=== PATIENT | female | born 1945 | race Caucasian/White ===

== ENCOUNTER 2020-02-14 17:14 | Emergency (ER) | payer MEDICARE, MEDICAID, SELFPAY ==
[2020-02-14] VITALS (11 sets, daily range): BP systolic 101–128; BP diastolic 75–103; PULSE 97–121; RESP 15–20; TEMP 36.6; O2SAT 92–100; BMI 32.9
--- NOTE | 2020-02-14 17:17 | XR_ITS ---
WS: [id number] LEFT WRIST: 3 VIEW(S) TECHNIQUE: PA, oblique and lateral. HISTORY: fall COMPARISON: None available. Comminuted radial fracture with intra-articular extension. Comminuted fractures with overlapping and dorsal angulation by nearly 50% the width of the radius. Additional avulsion fracture through the ulnar styloid. Bones are osteopenic. XR/XR wrist LT min 3V* [id number] IMPRESSION: 1. Fracture dislocation intra-articular fracture distal radius. 2. Nondisplaced ulnar styloid avulsion fracture. 3. Osteopenia.
--- NOTE | 2020-02-14 17:17 | XR_ITS ---
WS: [id number] PORTABLE CHEST HISTORY: fall COMPARISON: 08/07/2018 Lungs are clear and well expanded. No pleural effusion or pneumothorax. Cardiac size: Normal. Mediastinum/Aorta: Ectatic aorta. No osseous abnormality seen. XR/XR chest 1V portable [id number] IMPRESSION: Unremarkable portable chest.
--- NOTE | 2020-02-14 17:18 | ED_ITS ---
HPI - Fall General: Chief Complaint: Fall Stated Complaint: FALL LEFT WRIST INJURY Time Seen by Provider: 02/14/20 17:17 Source: patient and EMS Mode of arrival: EMS Limitations: no limitations History of Present Illness: HPI Narrative: 74-year-old female who states she tripped and fell. She struck her head along with her left arm. She has obvious deformity to her left wrist with pain in that wrist. She denies any loss conscious denies headache. She states she had a mild chest pain to after the fall. She denies any chest pain or headache before the fall. States the pain was sharp in nature. MD complaint: fall Onset (ago): hour(s) Fall from: standing Loss of consciousness: None Symptoms prior to fall: none Location of injury - extremities: Left: arm Severity: moderate Associated symptoms-after fall: Denies abdominal pain, chest pain or headache(s) Review of Systems Const: Denies: fever, chills, body aches or change in appetite Eyes: Denies: blurry vision or eye discomfort ENMT: Denies: throat pain or dental pain Card: Denies: chest pain Resp: Denies: shortness of breath GI: Denies: abdominal pain, nausea, vomiting or diarrhea : Denies: painful urination Musc: Reports: joint pain Skin/Breast: Denies: rash Neuro: Denies: headache Psych: Denies: depression Shabbir/Lymph: Denies: easy bruising All/Imm: Denies: hives PFSH ED PFSH: Social History Smoking and tobacco status: never smoked Physical Exam Const: COMMON NORMALS: no apparent distress, oriented x3 and healthy appearing HENMT: COMMON NORMALS: normocephalic HEAD & SCALP: normocephalic OTHER: abrasion to forehead Eye: COMMON NORMALS: PERRL and EOMs intact bilaterally PUPIL: Yes PERRL Neck/C-Spine: COMMON NORMALS: full ROM and supple Chest: COMMONS NORMALS: inspection of chest normal and palpation of chest normal Resp: COMMON NORMALS: normal respiratory effort, no retractions, no use of accessory muscles and clear to auscultation bilaterally AUSCULTATION: clear to auscultation bilaterally Cardio: COMMON NORMALS: regular rate, regular rhythm and no murmurs RATE: regular rate RHYTHM: regular rhythm GI: COMMON NORMALS: normal to inspection, nondistended, normoactive bowel sounds, soft to palpation, non-tender and no masses PALPATION: Yes soft Extremity: COMMON NORMALS: full ROM NARRATIVE EXTREMITY EXAM: obvious deformity to left wrist, n/v distally intact Neuro: COMMON NORMALS: oriented x3, moves all extremities and no focal motor deficits Psych: COMMON NORMALS: mental status grossly normal, thought process normal and cooperative THOUGHT PROCESS: normal thought process Skin: COMMON NORMALS: no rashes or lesions noted and no wounds GENERAL SKIN EXAM: no rashes or lesions noted Procedures Orthopedic Fracture Reduction Fracture #1: Time Out Performed: Yes Side: right Fracture Reduction Location: radius Analgesia: procedural sedation Technique: direct manipulation Post Reduction X-rays Demonstrate: anatomical reduction Post-reduction neuro exam: intact Post-reduction vascular exam: intact Splint Applied: Yes Patient Tolerated Procedure: well Procedural Sedation Indication: fracture/dislocation reduction ASA Class: II Time of Last PO Intake: 14:00 Preparation: youth nutritional monitor applied, pulse oximeter, supplemental O2 applied and suction/airway equipment at bedside IV Propofol dose (mg): 60 Patient Tolerated Procedure: well Complications: none Course Vital Signs: Vital signs: Vital Signs Temperature 97.8 F 02/14/20 17:15 Pulse Rate 105 H 02/14/20 19:01 Respiratory Rate 17 02/14/20 19:01 Blood Pressure 109/75 02/14/20 18:55 Pulse Oximetry 97 02/14/20 19:01 MDM - Fall MDM Narrative: Medical decision making narrative: Patient presents here with a an angulated left distal radius fracture after a fall. Fracture was reduced under conscious sedation. Patient has no other signs of injuries. CT head here is normal. Patient's EKG and x-ray chest are normal and chest pain is likely from the fall. Patient stable for discharge and is to follow-up with orthopedics as soon as possible. Imaging Data^: CT Head: Radiologist's impression: [address] [address] [address] Scan Report Signed Patient: Tamika France Unit #: [id number] : [id number] Age/Sex: 74 / F ADM Date: 02/14/20 Loc: ER Room/Bed: Attending Dr: Ordering Provider/Ordering MD: Isela Hinds MD Date of Service: 02/14/20 Procedure(s): CT head wo con* [id number] Accession Number(s): [id number] Report Number: [id number] PROCEDURE INFORMATION: Exam: CT Head Without Contrast Exam date and time: 02/14/2020 5:18 PM Age: 74 years old Clinical indication: Injury or trauma; Fall TECHNIQUE: Imaging protocol: Computed tomography of the head without contrast. Radiation optimization: All CT scans at this facility use at least one of these dose optimization techniques: automated exposure control; mA and/or kV adjustment per patient size (includes targeted exams where dose is matched to clinical indication); or iterative reconstruction. COMPARISON: CT head wo con* [id number] 08/07/2018 4:48 PM RADIATION DOSE METRICS: Total DLP: 817.68 mGy-cm FINDINGS: Brain: No visible evidence of active or acute intracranial pathologic process or trauma. No visible intracranial hemorrhage. Advanced small vessel ischemic disease with senile periventricular leukomalacia. Cerebral and cerebellar atrophy with ventricular dilatation greater than that anticipated patient's chronological age. Bones/joints: Unremarkable. No acute fracture. Sinuses: Visualized sinuses are unremarkable. No fluid levels. Mastoid air cells: Visualized mastoid air cells are well aerated. Soft tissues: Unremarkable. CT/CT head wo con* [id number] IMPRESSION: 1. No visible evidence of active or acute intracranial pathologic process or trauma. 2. Advanced small vessel ischemic disease. 3. Atrophic changes. CXR: My impression: no acute abnormality xr L wrist : My impression: distal angulated fx EKG Data^: EKG 1: Attestation: I personally reviewed and interpreted this EKG as follows: EKG interpretation date: 02/14/20 EKG interpretation time: 17:22 Interpretation: afib rvr gr [address] or t wave abnormality Discharge Plan Discharge Patient Disposition: Home, Self-Care Clinical Impression: Fall Fracture of wrist Qualifiers: Encounter type: initial encounter Fracture type: closed Laterality: left Qualified Code(s): S62.102A - Fracture of unspecified carpal bone, left wrist, initial encounter for closed fracture Condition: Stable Prescriptions: [place] 5-325 mg tablet 1 tab PO Q6H PRN (Reason: pain) Qty: 14 RF: 0 No Action furosemide 40 mg tablet 40 mg PO DAILY RF: 0 venlafaxine 150 mg capsule,extended release 24hr 150 mg PO DAILY RF: 0 amlodipine 5 mg tablet 5 mg PO DAILY RF: 0 risperidone 3 mg tablet 3 mg PO DAILY RF: 0 potassium chloride 20 mEq tablet,ER particles/crystals 20 meq PO DAILY RF: 0 levofloxacin 500 mg tablet 500 mg PO DAILY RF: 0 topiramate 100 mg tablet 100 mg PO DAILY RF: 0 Excedrin Extra Strength 250-250-65 mg Tablet 1 tab PO Q6H PRN (Reason: Pain) RF: 0 metoprolol tartrate 25 mg tablet 25 mg PO DAILY RF: 0 Xarelto 20 mg tablet 20 mg PO DAILY RF: 0 Discharge Orders: Discharge Order (Routine); Ordered 02/14/20 Ordered By: Isela Hinds Referrals: Ml Zaldivar MD [Physician] - 1-3 days Discharge Diet: Advance as tolerated Discharge Activity: Resume usual activity Patient Instructions: Wrist Fracture in Children (ED) Coding Level of Care Code ED Assistant Manager [employer] for Ambrosio Fwmagda Exam Comprehensive
[2020-02-14] MEDS: morphine 4 mg/mL SDV 1 mL IVP (17:34)
--- NOTE | 2020-02-14 17:46 | ECG_ITS ---
Measurements Intervals [place] Rate: 110 P: CA: 0 QRS: -17 QRSD: 95 T: -9 QT: 347 QTc: 470 ATRIAL FIBRILLATION WITH RAPID VENTRICULAR RESPONSE INCOMPLETE RIGHT BUNDLE BRANCH BLOCK [90+ ms QRS DURATION, TERMINAL R IN V1/V2, 40+ ms S IN I/aVL/V4/V5/V6] NONSPECIFIC ST & T-WAVE ABNORMALITY ABNORMAL RHYTHM ECG Compared to ECG 08/07/2018 16:31:02 Incomplete right bundle-branch block now present T-wave abnormality now present Sinus rhythm no longer present Electronically Signed On 02-14-2020 18:11:54 CDT by Rl Madsen M.D. [email or web address]
[2020-02-14] MEDS: sodium chloride 0.9% 1,000 ML 999 ML IV (18:36)
[2020-02-14] MEDS: propofol 10 mg/mL SDV 20 mL IVP (18:36)
[2020-02-14] MEDS: propofol 10 mg/mL SDV 20 mL 50 MG IVP (18:36)
--- NOTE | 2020-02-14 18:42 | XR_ITS ---
WS: [id number] LEFT WRIST: 2 VIEW(S) TECHNIQUE: PA and lateral. HISTORY: post reduction COMPARISON: Study earlier the same day. Reduction of the previously described fracture dislocation involving the radius. Comminuted radial fr acture still present with impaction and slight dorsal angulation. Significant improvement in alignmen t. Avulsion fracture through the distal ulna. Radial fracture does extend to the articular surface. Splint has been placed. XR/XR wrist LT 2V [id number] IMPRESSION: 1. Status post reduction and casting distal radial and ulnar fractures which a re in improved alignment.
--- NOTE | 2020-02-15 12:00 | DCPLANNER ---
resident services manager had message to schedule a follow up appointment for patient with ortho. resident services manager called the ortho clinic, spoke with Rahel. resident services manager gave clinic patients information, was told that it would be printed and reviewed. Clinic will call case supervisor and patient with appointment information.
--- NOTE | 2020-02-16 11:25 | DCPLANNER ---
Patient has a follow up appointment scheduled for Monday, February 24, 2020 at 11:[address] Ortega. Clinic will call patient with appointment information.
--- NOTE | 2020-02-28 14:01 | DCPLANNER ---
Patient did attend appointment scheduled for 02.24.20 with ortho.
== END 2020-02-14 22:51 | disposition home or self-care (01) ==
PROVIDERS: Emergency Provider Emergency Medicine
DX: S52.572A Other intraarticular fracture of lower end of left radius, initial encounter for closed fracture (principal); S52.615A Nondisplaced fracture of left ulna styloid process, initial encounter for closed fracture; W01.0XXA Fall on same level from slipping, tripping and stumbling without subsequent striking against object, initial encounter
CPT/HCPCS: 12345; 25605; 70450; 71045; 73100; 73110; 93005; 96361; 96374; 96375; 99283; 99284; J2270; J2704; J7030

== ENCOUNTER 2020-02-15 11:59 | Emergency (ER) | payer MEDICARE, MEDICAID, SELFPAY ==
[2020-02-15 12:03] VITALS: BP 119/80; PULSE 103; RESP 17; TEMP 36.8; O2SAT 95; BMI 32.9
--- NOTE | 2020-02-15 13:08 | W.ED.AMS ---
HPI - Altered Mental Status General: Chief Complaint: Altered Mental Status Stated Complaint: GENERAL WEAKNESS, FALL YESTERDAY Time Seen by Provider: 02/15/20 12:02 Source: patient and RN notes reviewed Mode of arrival: EMS Limitations: no limitations History of Present Illness: HPI narrative: 74-year-old female patient was brought into the emergency department via EMS with concerns of altered mental status. The patient was seen in this facility yesterday following a fall and she sustained a left wrist fracture which was reduced and put in a splint. The patient lives alone but her family has been taking care of her. The family states that she has been very confused and they can no longer take care of her. They want her placed in a group home. On talking to the patient she complains of only mild weakness and pain at the fracture site. She denies confusion and she is alert and oriented during my entire conversation with her. She recalls her fall yesterday, recalls she broke her wrist, and even recalls me from a prior encounter. I did not see her yesterday. She tells me she lives alone but her family has been helping to take care of her. Review of Systems General: Reports: 10 or more systems reviewed and unremarkable except in HPI and below Const: Denies: fever, chills or body aches Eyes: Denies: change in vision or blurry vision ENMT: Denies: throat pain, enlarged tonsils, painful swallowing, hoarseness, mouth pain or swelling of lips/tongue Card: Denies: chest pain, palpitations, irregular heart rhythm, edema or swelling of feet/ankles Resp: Denies: shortness of breath, productive cough or non-productive cough GI: Denies: abdominal pain, nausea or vomiting : Denies: flank pain, difficulty urinating, painful urination, urinary frequency, urinary urgency or urinary hesitancy Musc: Denies: neck pain, back pain or extremity swelling Skin/Breast: Denies: rash, itching or redness Neuro: Denies: headache, numbness in extremities or weakness in extremities Endo: Denies: excessive urination, excessive thirst or tired all the time PFS ED PFSH: Social History Smoking and tobacco status: never smoked Physical Exam Const: COMMON NORMALS: no apparent distress, average body habitus, oriented x3, no limitations, healthy appearing, alert and well nourished HENMT: COMMON NORMALS: normocephalic, head/scalp atraumatic and moist oral mucous membranes HEAD & SCALP: normocephalic and atraumatic Eye: COMMON NORMALS: PERRL, EOMs intact bilaterally, conjunctivae normal and no scleral icterus CONJUNCTIVA: Yes conjunctivae normal PUPIL: Yes PERRL Neck/C-Spine: COMMON NORMALS: full ROM, supple, no meningeal signs, no JVD and no carotid bruits Chest: COMMONS NORMALS: inspection of chest normal and palpation of chest normal Resp: COMMON NORMALS: normal respiratory effort, no retractions, no use of accessory muscles, clear to auscultation bilaterally and percussion normal AUSCULTATION: clear to auscultation bilaterally PERCUSSION: percussion normal Cardio: COMMON NORMALS: no JVD, regular rate, regular rhythm, S1 normal heart sound, S2 normal heart sound, no gallops, no clicks, no murmurs, no rub and peripheral pulses 2+ throughout RATE: regular rate RHYTHM: regular rhythm HEART SOUNDS: S1 normal and S2 normal PERIPHERAL PULSES: pulses 2+ throughout GI: COMMON NORMALS: normal to inspection, nondistended, normoactive bowel sounds, soft to palpation, non-tender, no hepatosplenomegaly, no masses and no bruits PALPATION: Yes soft and Yes no hepatosplenomegaly : COMMON NORMALS: Yes no CVA tenderness BLADDER/KIDNEY EXAM: Yes no CVA tenderness Back/Pelvis: COMMON NORMALS: no CVA tenderness Extremity: COMMON NORMALS: normal to inspection, full ROM, normal capillary refill, no calf tenderness and no pedal edema OTHER: Left upper extremity in a sling and left forearm in a splint Neuro: COMMON NORMALS: oriented x3 and no focal motor deficits SENSORIUM/ORIENTATION: Yes alert MENINGEAL SIGNS: Yes no meningeal signs Skin: COMMON NORMALS: no rashes or lesions noted, no wounds, skin turgor normal, no jaundice, no petechiae and no mottling GENERAL SKIN EXAM: no rashes or lesions noted and turgor normal Course ED course: 74-year-old female patient lives by herself and who had a fall yesterday with a subsequent left wrist fracture. Her family sent her to the emergency department today because of complaints of confusion and that they were unable to care for her. The patient is not confused in the emergency department, she is alert and oriented, however she is in agreement that because of the fracture and the fact that she lives alone a brief stay at the group home is reasonable. During her stay in the emergency department I was in contact with the orthopedic surgeon who wants to see her in the clinic on February 23 for surgery on February 27. Consultations: Consultation #1: Dr. Ortega, orthopedic surgeon. He will take the patient to the OR on February 27, however will need to see the patient in the clinic on February 23. Vital Signs: Vital signs: Vital Signs Temperature 98.2 F 02/15/20 12:03 Pulse Rate 121 H 02/15/20 15:16 Respiratory Rate 17 02/15/20 12:03 Blood Pressure 118/90 02/15/20 15:16 Pulse Oximetry 90 02/15/20 15:16 MDM - Altered Mental Status MDM Narrative: Medical decision making narrative: 74-year-old female patient status post fall and left wrist fracture. She lives alone and family is unable to care for her so [facility]. While she is in the jail facility she will have an appointment with orthopedic surgery as the surgeon plans to take her to the OR on February 27. She was set up with [facility] and is discharged to that facility from the emergency department. Discharge Plan Discharge Patient Disposition: Xfer [facility] Fac Not MCR Cert Clinical Impression: Fracture of wrist Qualifiers: Encounter type: subsequent encounter Fracture type: closed Laterality: left Fracture healing: with routine healing Qualified Code(s): S62.102D - Fracture of unspecified carpal bone, left wrist, subsequent encounter for fracture with routine healing Condition: Stable Prescriptions: [place] 5-325 mg tablet 1 tab PO Q6H PRN (Reason: pain) Qty: 30 RF: 0 Continued furosemide 40 mg tablet 40 mg PO DAILY RF: 0 venlafaxine 150 mg capsule,extended release 24hr 150 mg PO BID RF: 0 amlodipine 5 mg tablet 5 mg PO DAILY RF: 0 risperidone 3 mg tablet 2 mg PO DAILY RF: 0 potassium chloride 20 mEq tablet,ER particles/crystals 20 meq PO DAILY RF: 0 levofloxacin 500 mg tablet 500 mg PO DAILY RF: 0 topiramate 100 mg tablet 100 mg PO BID RF: 0 metoprolol tartrate 25 mg tablet 25 mg PO BID RF: 0 Xarelto 20 mg tablet 20 mg PO DAILY RF: 0 hydrocodone-acetaminophen [[place]] 5-325 mg tablet 1 tab PO Q6H PRN (Reason: pain) Qty: 14 RF: 0 levofloxacin 250 mg tablet 250 mg PO DAILY RF: 0 dextroamphetamine-amphetamine 30 mg tablet 30 mg PO BID RF: 0 Discharge Orders: Discharge Order (Routine); Ordered 02/15/20 Ordered By: Catia Jaramillo Referrals: Hai Ortega DO [Physician] - 02/24/20 11:00 am (Plans for surgery on 02/28/2020) Patient Instructions: Wrist Fracture in Adults (ED) Activity Restrictions/Additional Instructions: Return for any new or worsening symptoms. You have an appointment scheduled with Dr. Ortega, orthopedic doctor on February 23 at 11 AM. He plans to have surgery on your wrist on February 27. So no food from midnight on the day of February 27. Take the pain medication as needed. Elevate your arm to reduce the swelling. Discharge Date/Time: 02/15/20 16:52 Coding Level of Care Code ED Hepatology Physician for Bharatg Fwd Exam Comprehensive
[2020-02-15] MEDS: HYDROcodone-acetaminophen 5-325 mg Tablet 1 TAB PO (15:15)
[2020-02-15 15:16] VITALS: BP 118/90; PULSE 121; O2SAT 90
--- NOTE | 2020-02-15 16:33 | DCPLANNER ---
Addendum entered by Tammie Freire 02/15/20 16:59: manager call center did give patient the performance data information. Original Note: manager call center was asked to help with placement for patient into a [facility] facility. manager call center spoke with patient and she stated that she did want [facility] facility. manager call center had patient sign Patient Choice letter, in which she choose [facility]. manager call center called the [facility] facility, spoke with Trisha, faxed patients paperwork to the facility. The nursing facility did accept patient, returned case inspector arranged for transportation for patient from the hospital to the [facility] facility.
== END 2020-02-15 16:52 ==
PROVIDERS: Emergency Provider Family Medicine
DX: S62.102A Fracture of unspecified carpal bone, left wrist, initial encounter for closed fracture (principal); X58.XXXA Exposure to other specified factors, initial encounter
CPT/HCPCS: 12345; 99281; 99283

== ENCOUNTER → 2020-02-24 11:49 | Outpatient (BNVA) | payer MEDICARE, MEDICAID, SELFPAY | PROVIDERS: Referring Provider Emergency Medicine; Visit Provider Orthopaedic Surgery | DX: S52.502A Unspecified fracture of the lower end of left radius, initial encounter for closed fracture (principal); S52.612A Displaced fracture of left ulna styloid process, initial encounter for closed fracture; X58.XXXA Exposure to other specified factors, initial encounter | CPT/HCPCS: 73110 ==

== ENCOUNTER 2020-02-28 12:35 | Day surgery (SDC) | payer MEDICARE, MEDICAID, SELFPAY ==
[2020-02-27 12:30] VITALS: BMI 33.1
[2020-02-28] VITALS (8 sets, daily range): BP systolic 104–121; BP diastolic 79–97; PULSE 11–112; RESP 14–18; TEMP 36.4–36.8; O2SAT 95–99
--- NOTE | 2020-02-28 | SCC_ITS ---
Procedure Done: proximal internal fixation left distal radius fracture with volar plate and screws 32.8 seconds of fluoroscopic guidance, for a cumulative dose of 0.98 mGy, was provided to Dr. Ortega by the radiology department. C-arm images of the LEFT wrist were saved for the patient's permanent record. [facility] CENTERJulianne
--- NOTE | 2020-02-28 | XR_ITS ---
WS: [id number] C-ARM RADIOGRAPHS LEFT WRIST; 3 IMAGES HISTORY: OR PICS COMPARISON: 02/24/2020 Intraoperative imaging during plate and screw fixation distal radial fracture. Fracture in good posit ion and alignment. XR/XR wrist LT 2V [id number] IMPRESSION: Status post ORIF distal radial fracture.
--- NOTE | 2020-02-28 13:39 | W.PM.OPSUD ---
Surgery/Procedure H&P Update DATE OF PROCEDURE: February 28, 2020 DATE H&P PERFORMED: 02/24/20 H&P UPDATE INFORMATION: I have reviewed H&P completed within last 30 days, I have examined patient prior to procedure and No changes to prior documentation PREOP DIAGNOSIS: displaced left distal radius fracture PRIMARY INDICATION FOR PROCEDURE: as above PLANNED PROCEDURE: Operation Date: 02/28/20 13:50 Proposed Procedures p Open reduction internal fixation left distal radius (84213) S52.502A(Left) - Hai Ortega DO
--- NOTE | 2020-02-28 13:39 | PM.OP ---
Operative Report Date of procedure: February 28, 2020 Pre-op Diagnosis: displaced left distal radius fracture Post-op diagnosis: same Procedure Done: open reduction and internal fixation two-part extra-articular fracture (Colles' fracture) left distal radius fracture with volar plate and screws Implants: [place] distal radius volar plate and screws Pathology: none sent Surgeon: Hai Ortega Anesthesia: General and Nerve Block (Preoperative left-sided axillary nerve block) Estimated blood loss (mL): 25 Tourniquet time (min): 51 (250 mmHg pressure) IV fluids (mL): 400 Complications: No apparent complications Findings: Satisfactory reduction of fracture and placement of implants is noted by clinical inspection and fluoroscopic imaging performed during surgery. Condition: stable Disposition: PACU Brief History: 74-year-old white female had a fall on her outstretched left upper extremity she was at a [employer] store. She sustained a fracture of her left distal radius. X-rays show an impacted left distal radius fracture it appears to extend in both the radiocarpal and distal radioulnar joints. Her fracture from the time she was splinted in the emergency room 2 time she was seen in orthopedic clinic as shown progressive settling of her impacted distal radius fracture. I recommended surgical intervention to prevent a impending malunion of her wrist. Risk of surgery include are not limited to loss of reduction complications from hardware such as cut out stiffness posttraumatic arthritis possible need to have the plate removed at a later date. Medical complications can include bleeding complications nerve/blood vessel/injury, blood clots, heart attack, stroke risk up to including . All questions answered patient agreeable to proceed with surgery. Procedure: 1.5 g Zinacef Patient identified. Surgical site signed. Surgical permit signed. Patient received 1.5 g of Zinacef for prophylaxis intravenously. The patient was taken to the operating room. She was given intravenous sedation. Tourniquet is placed about the upper aspect of the left upper extremity. Left upper extremity was sterilely prepped draped fashion. Left upper extremity was exsanguinated using the Esmarch bandage and the tourniquet was inflated to 250 millimeters mercury pressure. Using a skin knife a 14 cm incision was made first longitudinally over the underlying flexor carpi radialis tendon and then turning obliquely over the thenar eminence. Full-thickness skin flaps were made. Crossing veins were coagulated with electrocautery. The flexor carpi radialis tendon was mobilized and retracted radially. The floor the tendon sheath was incised with a second knife. Using blunt digital dissection the flexor tendons and median nerve were pushed ulnarward and a self-retaining retractor was put in place. Using a second knife the pronator quadratus was released off the radial border of the volar surface of distal radius and swept ulnarward and held in place with the repositioned self-retaining retractor. The fracture site was identified in the fracture fragments reduced and appropriate sized volar plate from the [employer] plate set was positioned in place and pinned provisionally using K wires. Fluoroscopic imaging demonstrated satisfactory reduction of the fracture and positioning of the plate. The volar plate was first secured using locking screws placed distally. The proximal aspect of the plate was then reduced down to the shaft of the radius helping correct the impaction of the fracture site. The proximal aspect of the plate was held in place then using a cortical screw and the oblong hole. Additional locking screws were placed proximally and distally. Fluoroscopic imaging was used to verify the appropriate length and placement of screws in both the distal portion of the plate as well as the shaft screws. Fluoroscopic imaging demonstrated satisfactory reduction placement of implants with no apparent complications. The incision was irrigated with Betadine-containing saline solution followed by antibiotic containing saline solution. The pronator quadratus muscle was swept radialward. Incision was closed in layers with 4-0 nylon skin. Antibiotic ointment was applied followed by Telfa and 4 x 4's. Sterile cast padding was applied followed by a volar plaster splint and an Boris overwrap. The tourniquet was deflated during application of dressings. The patient was aroused from IV sedation. She tolerated surgery well. She was taken to the recovery room. All counts are correct
[2020-02-28] MEDS: sodium chloride 0.9% 1,000 ML 30 ML IV (13:40)
--- NOTE | 2020-02-28 13:42 | ANES.PREANE2 ---
Pre-Anesthetic Assessment Pre-Anesthetic Assessment: Height/Weight: Height 1.65 m Weight 90.265 kg Temp Pulse Resp BP Pulse Ox 98.2 F 11 L 18 121/95 95 02/28/20 12:54 02/28/20 12:54 02/28/20 12:54 02/28/20 12:54 02/28/20 12:54 Preop Diagnosis: displaced left distal radius fracture Proposed Procedure: Operation Date: 02/28/20 13:50 Proposed Procedures p Open reduction internal fixation left distal radius (38222) S52.502A(Left) - Hai Ortega DO Familial anesthetic complications: none Was Beta Peter taken within 24 hours: Yes Last intake: Intake Last Liquid Date 02/27/20 Last Solid Date 02/27/20 Last Intake: 01:00 Social: Social History: No alcohol and No tobacco Airway: Submandibular: WNL Cervical ROM: WNL MP: 2 Dentition: Full Pulmonary: Pulmonary: None reported CV/HEM: CV/HEM: Afib, Arrythmia and HTN : : None reported Hepatic: Hepatic: None reported GI: GI: None reported Metabolic: Metabolic: None reported Musc/skel: Musc/skel: Lower Back Pain and OA/DJD Neuropsych: Neuropsych: Bipolar, Syncope and TIA (blurred vision) Anesthetic Plan: ASA status: 3 Anesthesia: General Risk of > 500 ml blood loss (7ml/kg in children): No Meds/Allergies Current Medications: Current Medications Generic Name Dose Route Start Last Admin Trade Name Freq PRN Reason Stop Dose Admin Sodium Chloride 1,000 mls @ 30 ml s/hr 02/28/20 08:45 02/28/20 13:40 Sodium Chloride 0.9% IV 02/29/20 08:44 30 mls/hr .Q24H DAPHNE Administration PFSH Anesthesia PFSH: Medical History (Updated 02/26/20 @ 18:47 by Hai Ortega DO) A-fib Bipolar 1 disorder CHF (congestive heart failure) Surgical History (Updated 02/26/20 @ 18:47 by Hai Ortega DO) History of ankle surgery Hx of tonsillectomy Social History Smoking and tobacco status: never smoked Data Anesthesia Cardiac Studies: No Data to Display
[2020-02-28] MEDS: cefUROXime 1,500 MG in sodium chloride 0.9% (plus) 50 ML 100 MG IV (14:18)
[2020-02-28] MEDS: neomycin-poly-bacitracin oint 28 gm 1 APPLIC TOPICAL (15:29)
== END 2020-02-28 17:20 | disposition other institution (70) ==
PROVIDERS: PCP Family Medicine; Visit Provider Orthopaedic Surgery
PROC: (CPT 25607; principal; 2020-02-28 13:30)
DX: S52.502A Unspecified fracture of the lower end of left radius, initial encounter for closed fracture (principal); W19.XXXA Unspecified fall, initial encounter; I48.91 Unspecified atrial fibrillation; M19.90 Unspecified osteoarthritis, unspecified site; I11.0 Hypertensive heart disease with heart failure; I50.9 Heart failure, unspecified; Z79.891 Long term (current) use of opiate analgesic
CPT/HCPCS: 25607; 12345; 73100; 76000; 96365; C1713; J0131; J0697; J1580; J2001; J2704; J2710; J3010; J3490; J7030

== ENCOUNTER → 2020-03-14 14:52 | Outpatient (BNVA) | payer OTHER, SELFPAY | PROVIDERS: PCP Family Medicine; Visit Provider Orthopaedic Surgery | DX: Z48.89 Encounter for other specified surgical aftercare (principal); S52.502A Unspecified fracture of the lower end of left radius, initial encounter for closed fracture; X58.XXXA Exposure to other specified factors, initial encounter | CPT/HCPCS: 73110 ==

== ENCOUNTER 2020-03-26 15:16 | Outpatient (CLI) | payer MEDICARE, MEDICAID, SELFPAY | END 2020-03-26 15:17 | disposition home or self-care (01) | LOC: SPT 15:16 | PROVIDERS: PCP Family Medicine; Visit Provider Orthopaedic Surgery | DX: Z46.89 Encounter for fitting and adjustment of other specified devices (principal); S62.102D Fracture of unspecified carpal bone, left wrist, subsequent encounter for fracture with routine healing; X58.XXXD Exposure to other specified factors, subsequent encounter | CPT/HCPCS: 97760; L3908 ==

== ENCOUNTER → 2020-04-13 09:47 | Outpatient (BNVA) | payer MEDICARE, MEDICAID, SELFPAY | PROVIDERS: PCP Family Medicine; Visit Provider Orthopaedic Surgery | DX: Z98.890 Other specified postprocedural states (principal); S52.502A Unspecified fracture of the lower end of left radius, initial encounter for closed fracture; X58.XXXA Exposure to other specified factors, initial encounter | CPT/HCPCS: 73110 ==

== ENCOUNTER → 2020-05-09 10:25 | Outpatient (BNVA) | payer MEDICARE, MEDICAID, SELFPAY | PROVIDERS: PCP Family Medicine; Visit Provider Orthopaedic Surgery | DX: Z98.890 Other specified postprocedural states (principal) | CPT/HCPCS: 73110; 73560; 73565 ==

== ENCOUNTER 2021-09-12 14:06 | Inpatient (IN) | payer MEDICARE, MEDICAID, SELFPAY ==
[2021-09-12 14:14] VITALS: BP 102/71; PULSE 120; RESP 18; TEMP 36.7; O2SAT 97; BMI 33.3
--- NOTE | 2021-09-12 14:23 | XRR_ITS ---
PROCEDURE INFORMATION: Exam: XR Chest Exam date and time: 09/12/2021 2:23 PM Age: 75 years old Clinical indication: Angina; Additional info: Dyspnea TECHNIQUE: Imaging protocol: XR of the chest. Views: 1 view. COMPARISON: CR XR chest 1V portable [id number] 02/14/2020 5:21 PM FINDINGS: Lungs: Unremarkable. No consolidation. Pleural spaces: Unremarkable. No pleural effusion. No pneumothorax. Heart/Mediastinum: Unremarkable. No cardiomegaly. Bones/joints: Unremarkable. XR/XR chest 1V portable [id number] IMPRESSION: No acute findings. Radiation Dose CTDIVOL = (mGy): DLP = (mGy-cm)
[2021-09-12 14:43] LABS: Basophils # 0.1 10^3/uL (0.0-0.1); Basophils % 0.5 %; Eosinophils # 0.1 10^3/uL (0.0-0.8); Eosinophils % 0.8 %; Hematocrit 41.7 % (37.0-47.0); Hemoglobin 13.8 g/dL (11.5-15.3); Lymphocytes # 1.5 10^3/uL (0.8-4.8); Lymphocytes % 16.1 %; Mean Corpuscular HGB Conc 33.1 g/dL (30.0-36.0); Mean Corpuscular Volume 96.8 fl (81-99); Mean Platelet Volume 12.6 fL (7.4-10.4); Monocytes # 0.7 10^3/uL (0.2-0.9); Monocytes % 7.1 %; Neutrophils # 6.87 10^3/uL (1.8-7.7); Neutrophils % 75.1 %; Nucleated Red Blood Cells % 0 %; Platelet Count 111 10^3/cmm (130-400); Red Blood Count 4.31 10^6/uL (4.1-5.3); Red Cell Distribution Width 13.5 % (12.1-15.1); White Blood Count 9.2 10^3/uL (4.0-10.0)
--- NOTE | 2021-09-12 14:56 | ED_ITS ---
HPI - General Adult General: Chief complaint: Weakness Stated complaint: WEAKNESS Time Seen by Provider: 09/12/21 14:10 History of Present Illness: HPI narrative: Patient is a 75-year-old female with a history of atrial fibrillation on Eliquis, ortic regurgitation, CHF, obstructive sleep apnea who presents the emergency room for evaluation of generalized weakness worsening x2 days. Patient tells me that she started feeling weakness yesterday and earlier today, has been unable to do anything. Patient denies lightheadedness passing out, chest pain, shortness of breath or palpitation. Patient tells me that she is not able to walk because of the weakness and needed a friend to carry her to the living room today. Friend called EMS and patient was brought here for an evaluation. On my assessment, patient denies any fever/chills, cough, runny nose, sore throat, abdominal pain, nausea/vomiting, diaphoresis, diarrhea, melena or hematochezia. Patient reports mild dysuria symptoms for the last 2 days and also left-sided flank pain. Onset:2 days ago Duration:2 days Location:home Severity:moderate Review of Systems Narrative: Constitutional: No fever, no chills. HEENT: No vision changes CV: No chest pain, no palpitations PULM: no cough, no dyspnea. GI: No abdominal pain, no N/V/D. + l sided flank pain : +dysuria MSKEL: No muscle pain SKIN: No new rashes, no lesions. NEURO: No headache, no focal weakness. HEME: No visible bruises PSYCH: Normal mood PFSH ED PFSH: Medical History A-fib Aortic regurgitation Benign essential HTN Bipolar 1 disorder CHF (congestive heart failure) Chronic atrial fibrillation History of fracture of wrist Obstructive sleep apnea Recent cerebrovascular accident (CVA) Ventricular arrhythmia Surgical History History of ankle surgery Hx of tonsillectomy Postoperative state Family History Other Cancer Diabetes Psychiatric illness Denies family history of CAD (coronary artery disease) Clotting disorder Dementia Hyperlipidemia Chronic kidney disease (CKD) Suicide Anesthesia complication Bleeding disorder Family history of premature coronary artery disease Lung disease Hypertension Stroke Social History Smoking and tobacco status: never smoked Alcohol intake: never Physical Exam Narrative: EXAM NARRATIVE: Head: Atraumatic Eyes: PERRL, conjunctiva without injection ENT: Mucous membrane moist NECK: Supple, ROM intact LUNGS: LCTAB, no crackles/rhonchi CV: Irregular irregular tachycardia ABDOMEN: Soft, +L CVA focal TTP. NO guarding rebound, guarding, rigidity. No CVA tenderness to percussion. Neg Duff/Neg McBurney's point tenderness, no suprabupic tenderness to palpation. EXTREMITY: Normal ROM SKIN: No rash or erythema NEURO: Awake and alert, no focal motor deficits PSYCH: Normal mood and affect Course Vital Signs: Vital signs: Vital Signs Temperature 98.1 F 09/12/21 14:14 Pulse Rate 120 H 09/12/21 14:14 Respiratory Rate 18 09/12/21 14:14 Blood Pressure 102/71 09/12/21 14:14 Pulse Oximetry 97 09/12/21 14:14 MDM - General Adult MDM Narrative: Medical decision making narrative: 75-year-old female presents emergency room with generalized weakness. Patient on arrival is in A. fib with RVR to the 120s on the monitor. No other focal findings on exam. EKG showing Afib with RVR at HR 113. Normal axis. No ST elevations/depressions to suggest coronary occlusion. Normal QRS, QT intervals. Troponin of 17, creatinine 1.2, UA is possibly consistent with UTI. Patient still is in A. fib despite 7.5 mg of metoprolol IVF. Patient is unable to ambulate at this time. Will admit for chest pain workup Disposition: Admission Lab Data: Labs: Lab Results 09/12/21 09/12/21 09/12/21 14:30 14:30 14:30 WBC 9.2 10^3/uL 10^3/ uL (4.0-10.0) RBC 4.31 10^6/uL 10^6 /uL (4.1-5.3) Hgb 13.8 g/dL g/dL (11.5-15.3) Hct 41.7 % % (37.0-47.0) MCV 96.8 fl fl (81-99) MCH 32.0 pg pg (28.0-34.0) MCHC 33.1 g/dL g/dL (30.0-36.0) RDW 13.5 % % (12.1-15.1) Plt Count 111 10^3/cmm L 10 ^3/cmm (130-400) MPV 12.6 fL H fL (7.4-10.4) Neut % (Auto) 75.1 % % Lymph % (Auto) 16.1 % % [facility] % (Auto) 7.1 % % Eos % (Auto) 0.8 % % Baso % (Auto) 0.5 % % Neut # (Auto) 6.87 10^3/uL 10^3 /uL (1.8-7.7) Lymph # (Auto) 1.5 10^3/uL 10^3/ uL (0.8-4.8) [facility] # (Auto) 0.7 10^3/uL 10^3/ uL (0.2-0.9) Eos # (Auto) 0.1 10^3/uL 10^3/ uL (0.0-0.8) Baso # (Auto) 0.1 10^3/uL 10^3/ uL (0.0-0.1) Nucleated RBC % (a uto) 0 % % Nucleated RBCs # 0.0 /100WBC /100W BC Sodium Cancelled Potassium Cancelled Chloride Cancelled Carbon Dioxide Cancelled Anion Gap Cancelled BUN Cancelled Creatinine Cancelled GFR Calculation Cancelled Glucose Cancelled Calculated Osmolal ity Cancelled Lactate Calcium Cancelled Magnesium Cancelled Total Bilirubin Cancelled AST Cancelled ALT Cancelled Alkaline Phosphata se Cancelled Troponin T Baselin e Cancelled NT-Pro-B Natriuret Pep Cancelled Total Protein Cancelled Albumin Cancelled Globulin Cancelled Lipase Cancelled Urine Color Urine Appearance Urine pH Ur Specific Gravit y Urine Protein Urine Glucose (UA) Urine Ketones Urine Blood Urine Nitrate Urine Bilirubin Urine Urobilinogen Ur Leukocyte Savana ase Urine RBC Urine WBC Ur Squamous Epith Cells Amorphous Sediment Urine Bacteria 09/12/21 09/12/21 09/12/21 15:09 15:22 15:22 WBC RBC Hgb Hct MCV MCH MCHC RDW Plt Count MPV Neut % (Auto) Lymph % (Auto) [facility] % (Auto) Eos % (Auto) Baso % (Auto) Neut # (Auto) Lymph # (Auto) [facility] # (Auto) Eos # (Auto) Baso # (Auto) Nucleated RBC % (a uto) Nucleated RBCs # Sodium 139 mmol/L mmol/L (136-145) Potassium 4.3 mmol/L mmol/L (3.5-5.1) Chloride 107 mmol/L mmol/L (98-107) Carbon Dioxide 17 mmol/L L mmol/ L (22-29) Anion Gap 19.3 H (5-19) BUN 21 mg/dL mg/dL (8-23) Creatinine 1.2 mg/dL H mg/dL (0.5-0.9) GFR Calculation Not Reportable Glucose 124 mg/dL H mg/dL (65-115) Calculated Osmolal ity 292 mOsm/kg mOsm/ kg (285-295) Lactate 3.1 mmol/L H mmol /L (0.5-2.2) Calcium 8.7 mg/dL mg/dL (8.5-10.5) Magnesium 2.2 mg/dL mg/dL (1.7-2.3) Total Bilirubin 0.5 mg/dL mg/dL (0.15-1.2) AST 13 U/L U/L (0-32) ALT 8 U/L U/L (0-33) Alkaline Phosphata se 114 IU/L H IU/L (35-105) Troponin T Baselin e NT-Pro-B Natriuret Pep 719 pg/mL H pg/mL (0-125) Total Protein 6.6 g/dL g/dL (6.6-8.7) Albumin 4.1 g/dL g/dL (3.5-5.2) Globulin 2.5 g/dL g/dL (1.3-4.6) Lipase 32 U/L U/L (13-60) Urine Color Yellow (Yellow) Urine Appearance Cloudy (CLEAR) Urine pH 6 (5-7) Ur Specific Gravit y 1.020 (1.005-1.030) Urine Protein 2+ H (Negative) Urine Glucose (UA) Norm (Normal) Urine Ketones Negative (Negative) Urine Blood 3+ H (Negative) Urine Nitrate Negative (Negative) Urine Bilirubin Neg (Negative) Urine Urobilinogen 1 mg/dL H mg/dL (Negative) Ur Leukocyte Savana ase 2+ H (Negative) Urine RBC 10-15 /hpf H /hpf (0-2) Urine WBC 25-40 /hpf H /hpf (0-5) Ur Squamous Epith Cells 5-10 /hpf H /hpf (0-5) Amorphous Sediment Not Reportable Urine Bacteria 3+ /hpf H /hpf (NONE) 09/12/21 15:22 WBC RBC Hgb Hct MCV MCH MCHC RDW Plt Count MPV Neut % (Auto) Lymph % (Auto) [facility] [place] % (Auto) Eos % (Auto) Baso % (Auto) Neut # (Auto) Lymph # (Auto) [facility] [place] # (Auto) Eos # (Auto) Baso # (Auto) Nucleated RBC % (a uto) Nucleated RBCs # Sodium Potassium Chloride Carbon Dioxide Anion Gap BUN Creatinine GFR Calculation Glucose Calculated Osmolal ity Lactate Calcium Magnesium Total Bilirubin AST ALT Alkaline Phosphata se Troponin T Baselin e 16 ng/L H ng/L (0-10) NT-Pro-B Natriuret Pep Total Protein Albumin Globulin Lipase Urine Color Urine Appearance Urine pH Ur Specific Gravit y Urine Protein Urine Glucose (UA) Urine Ketones Urine Blood Urine Nitrate Urine Bilirubin Urine Urobilinogen Ur Leukocyte Savana ase Urine RBC Urine WBC Ur Squamous Epith Cells Amorphous Sediment Urine Bacteria Imaging Data^: Other Imaging: Radiologist's impression: [address] [id number] ReportSigned Patient: Tamika France #: [id number]: 8Acct#:[id number]/Sex: 75 / FADM Date: 09/12/21Loc: [facility]/Bed:Attending Dr: Ordering Provider/Ordering MD: July Chan MD Date of Service: 09/12/21 Procedure(s): XR chest 1V portable [id number] Accession Number(s): [id number] Report Number: [id number] PROCEDURE INFORMATION: Exam: XR Chest Exam date and time: 09/12/2021 2:23 PM Age: 75 years old Clinical indication: Angina; Additional info: Dyspnea TECHNIQUE: Imaging protocol: XR of the chest. Views: 1 view. COMPARISON: CR XR chest 1V portable [id number] 02/14/2020 5:21 PM FINDINGS: Lungs: Unremarkable. No consolidation. Pleural spaces: Unremarkable. No pleural effusion. No pneumothorax. Heart/Mediastinum: Unremarkable. No cardiomegaly. Bones/joints: Unremarkable. XR/XR chest 1V portable [id number] IMPRESSION: No acute findings. Radiation Dose CTDIVOL = (mGy): DLP = (mGy-cm) Dictated By:Maximus Sue DOSigned By:Maximus Sue DOSigned Date/Time:09/12/21 1533DD/ 1423 Discharge Plan Discharge Patient Disposition: Admitted As Inpatient Clinical Impression: Generalized weakness, Atrial fibrillation with RVR, Acute UTI, Elevated troponin Condition: Stable Coding Level of Care Code ED Slide Developer for Ambrosio Jones
[2021-09-12 15:02] LABS: Slide Review Slide Review Perform
[2021-09-12 15:23] LABS: Blood Urine 3+ (Negative); Glucose Urine UA Norm (Normal); Ketones Urine Negative (Negative); Nitrate Urine Negative (Negative); Protein Urine 2+ (Negative); Urine Appearance Cloudy (CLEAR); Urine Color Yellow (Yellow); pH Urine 6 (5-7)
[2021-09-12 15:24] LABS: Add Urine Culture? Yes; Add Urine Microscopic? YES; Bacteria Urine 3+ /hpf; Bilirubin Urine Neg (Negative); Leukocyte Esterase Urine 2+ (Negative); Urobilinogen Urine 1 mg/dL (Negative); WBC Urine 25-40 /hpf (0-5)
[2021-09-12] MEDS: metoprolol tartrate 1 mg/1 mL SDV 5 mL 2.5 MG IVP (15:35)
[2021-09-12 16:01] LABS: Lactate (Lactic Acid level) 3.1 mmol/L (0.5-2.2)
[2021-09-12 16:03] LABS: Troponin(5th) Baseline 16 ng/L (0-10)
[2021-09-12 16:13] LABS: Alanine Aminotransferase 8 U/L (0-33); Albumin Level 4.1 g/dL (3.5-5.2); Alkaline Phosphatase 114 IU/L (35-105); Anion Gap 19.3 (5-19); Aspartate Amino Transferase 13 U/L (0-32); Blood Urea Nitrogen 21 mg/dL (8-23); Calcium 8.7 mg/dL (8.5-10.5); Carbon Dioxide 17 mmol/L (22-29); Chloride 107 mmol/L (98-107); Globulin 2.5 g/dL (1.3-4.6); Glucose 124 mg/dL (65-115); Lipase 32 U/L (13-60); Magnesium 2.2 mg/dL (1.7-2.3); NT Pro B Type Natriuretic Pept 719 pg/mL (0-125); Osmolality Calculated 292 mOsm/kg (285-295); Potassium 4.3 mmol/L (3.5-5.1); Sodium 139 mmol/L (136-145); Total Bilirubin 0.5 mg/dL (0.15-1.2); Total Protein 6.6 g/dL (6.6-8.7)
--- NOTE | 2021-09-12 16:24 | ECG_ITS ---
[facility] Test Date: 2021-09-12 Pat Name: Tamika France Department: Room: Gender: Female Data Miner: : 1945 Requested By: July Chan Order Number: [id number] Reading MD: JODI MAY Measurements Intervals [place] Rate: 113 P: NV: QRS: -26 QRSD: 93 T: 8 QT: 302 QTc: 416 Interpretive Statements ATRIAL FIBRILLATION WITH RAPID VENTRICULAR RESPONSE BORDERLINE LEFT AXIS DEVIATION [QRS AXIS < -20] LOW QRS VOLTAGE IN PRECORDIAL LEADS [QRS DEFLECTION < 1.0 mV IN CHEST LEADS] PATTERN CONSISTENT WITH PULMONARY DISEASE INCOMPLETE RIGHT BUNDLE BRANCH BLOCK [90+ ms QRS DURATION, TERMINAL R IN V1/V2, 40+ ms S IN I/aVL/V4/V5/V6] Compared to ECG 02/14/2020 17:22:24 Low QRS voltage now present T-wave abnormality no longer present Electronically Signed On 09-13-2021 14:35:54 TUTORING MANAGER by JODI MAY [email or web address]
[2021-09-12] MEDS: metoprolol tartrate 1 mg/1 mL SDV 5 mL 5 MG IVP (16:44)
[2021-09-12] MEDS: cefTRIAXone 1,000 MG in sodium chloride 0.9% (plus) 50 ML 100 MG IV (16:45)
[2021-09-12] MEDS: sodium chloride 0.9% 500 ML IV (16:46)
--- NOTE | 2021-09-12 16:51 | P.HP_ITS ---
Providers/Chief Complaint Primary Care Provider: Mavis Jacinto Chief Complaint: WEAKNESS History of Present Illness Tamika France is a 75 year old female with past medical history of hypertension, A. fib,Chronic atrial fibrillation, heart failure,CVA, bipolar disorder, came in with chief complaint of spinning of her head going on since today morning, denies any history of fall, these episodes are also accompanied by palpitation, as well as left-sided chest pain, radiating to back as well as nausea.She is also complaining of dysuria going on for last couple of days, she has history of recurrent UTI. She is also complaining of fatigue for last few days. Complaining of runny nose. She denies any fever, cough, shortness of breath, headache, abdominal pain, vomiting, constipation diarrhea. Upon arrival in the ER she was worked up for above-mentioned complaint: Pertinent imaging studies: X-ray chest:No acute findings. EKG: A. fib with RVR Pertinent labs: WBC 9.2, H&H:13.8/41.7, plt :111, serum sodium 139 serum potassium 4.3, BUN/ serum creatinine: 21/1.2, serum lactate:3.1 , AST 13 ALT 8 alk phos 114, baseline troponin:16, 2-hour and 6 hours troponin pending, BNP 719, Urinalysis: Dirty. Patient was given IV metoprolol push in the ER as well as she was started on ceftriaxone for UTI. Review of Systems Const: Denies: fever(s), chills or change in appetite Card: Denies: edema, swelling of feet/ankles or orthopnea Resp: Denies: dyspnea, productive cough, wheezing or pain on inspiration GI: Denies: abdominal pain, vomiting, diarrhea or constipation Musc: Denies: back pain, extremity pain or extremity swelling Neuro: Denies: headache(s) or confusion Medications/Allergies Home Medications Medication Instructions Recorded Confirmed Last Taken Type Xarelto 20 mg PO DAILY 02/14/20 05/09/20 02/27/20 History amlodipine 5 mg PO DAILY 02/14/20 05/09/20 02/28/20 History furosemide 40 mg PO DAILY 02/14/20 05/09/20 02/27/20 History risperidone 2 mg PO DAILY 02/14/20 05/09/20 02/27/20 History topiramate 100 mg PO BID 02/14/20 05/09/20 02/27/20 History venlafaxine 150 mg PO BID 02/14/20 05/09/20 02/27/20 History levofloxacin 250 mg PO DAILY 02/15/20 05/09/20 02/27/20 History calcium carbonate-vitamin D3 250 1 tab PO DAILY tab 11/22/20 Unknown History mg-125 unit tablet diclofenac sodium 1 % topical gel 2 g TOPICAL QID PRN g 11/22/20 Unknown Hi story sennosides 8.6 mg-docusate sodium 1 tab-cap PO DAILY tab 11/22/20 Unknown History 50 mg tablet potassium chloride 20 mEq 20 meq PO DAILY 90 Days #90 tab 06/06/21 06/06/21 Unknown Rx tablet,extended release(part/cryst) metoprolol tartrate 25 mg tablet See Rx Instructions .ROUTE 08/30/21 Unknown Rx .COMPLEX #180 tablet Allergies Allergy/AdvReac Type Severity Reaction Status Date / Time Sulfa (Sulfonamide Allergy Unknown Verified 06/06/21 10:58 Antibiotics) PFSH Acute PFSH: Medical History A-fib Aortic regurgitation Benign essential HTN Bipolar 1 disorder CHF (congestive heart failure) Chronic atrial fibrillation History of fracture of wrist Obstructive sleep apnea Recent cerebrovascular accident (CVA) Ventricular arrhythmia Surgical History History of ankle surgery Hx of tonsillectomy Postoperative state Family History Other Cancer Diabetes Psychiatric illness Denies family history of CAD (coronary artery disease) Clotting disorder Dementia Hyperlipidemia Chronic kidney disease (CKD) Suicide Anesthesia complication Bleeding disorder Family history of premature coronary artery disease Lung disease Hypertension Stroke Social History Smoking and tobacco status: never smoked Alcohol intake: never Vitals/I&O/Wt Last Vital Signs Temp 98.1 F 09/12/21 14:14 Pulse 120 H 09/12/21 14:14 Resp 18 09/12/21 14:14 BP 102/71 09/12/21 14:14 Pulse Ox 97 09/12/21 14:14 Weight last 48 hrs Weight 90.718 kg Physical Exam Const: COMMON NORMALS: patient oriented x3 HENMT: COMMON NORMALS: normocephalic and atraumatic HEAD & SCALP: normocephalic and atraumatic Chest: CHEST: Yes Symmetrical chest wall rise Resp: COMMON NORMALS: normal respiratory effort, No retractions, No use of accessory muscles and clear to auscultation bilaterally EFFORT & INSPECTION: Yes symmetric chest movement AUSCULTATION: clear to auscultation bilaterally Cardio: COMMON NORMALS: No gallops present (Cardio), No murmurs present (Cardio), No rub (Cardio) and Peripheral pulses 2+ throughout PERIPHERAL PULSES: Peripheral pulses 2+ throughout OTHER: Irregularly irregular rhythm, S1-S2 of variable intensity. GI: COMMON NORMALS: Soft to palpation, non-tender, No hepatosplenomegaly present and no masses AUSCULTATION: Yes normoactive bowel sounds PALPATION: Yes Soft to palpation and Yes No hepatosplenomegaly present RECTAL EXAM: deferred Extremity: COMMON NORMALS: no clubbing, cyanosis or edema and no pedal edema Neuro: COMMON NORMALS: patient oriented x3 Data : 09/12/21 14:30 09/12/21 15:22 Micro: Microbiology 09/12/21 15:22 Blood Culture - Preliminary Blood SPECIMEN COLLECTED A&P Assessment and plan (1) Atrial fibrillation with RVR: Status: Acute (2) Acute UTI: Status: Acute (3) Generalized weakness: Status: Acute (4) Benign essential HTN: Status: Acute (5) Aortic regurgitation: Status: Acute Qualifiers: Cardiac valve disease etiology: nonrheumatic Qualified Code(s): I35.1 - Nonrheumatic aortic (valve) insufficiency (6) ERIK (acute kidney injury): Status: Acute Additional A&P Information 75 year old female with past medical history of hypertension, A. fib,Chronic atrial fibrillation, heart failure,CVA, bipolar disorder, came in with chief complaint of spinning of her head going on since today morning, denies any history of fall, these episodes are also accompanied by palpitation, as well as left-sided chest pain, radiating to back as well as nausea.She is also complaining of dysuria going on for last couple of days, she has history of recurrent UTI. She is also complaining of fatigue for last few days. Complaining of runny nose. #A. fib with RVR: 2D echo: TSH Patient received metoprolol pushes in the ER. Currently heart rate in 100-110S. Will give metoprolol p.o. 50 mg x 1 dose. Start her on metoprolol 25 mg p.o. twice daily. Metoprolol tartrate 5 mg IV every 4 hours as needed. #UTI: Patient has history of recurrent UTI: Follow urine culture Ceftriaxone 1 mg IV daily #History of heart failure: Currently compensated. Follow-up 2D echo Intake output charting #ERIK on CKD stage III: Likely secondary dehydration Continue IV hydration, monitor BMP, Avoid nephrotoxic's #Elevated lactic acid: Follow repeat lactic acid. Low suspicion for infection. #Possibly vertigo secondary to possible URI: Meclizine as needed #Hypertension: Continue amlodipine DVT prophylaxis: Not needed patient on Xarelto CODE STATUS: Full code Attestations Medical Necessity Statement*: Patient needs to be in hospital for management of symptomatic A. fib with RVR. Anticipated length of stay greater than 2 midnights. Coding Level of Care Code Acute Therapy Manager for Chg Fwd Diagnoses Atrial fibrillation with RVR I48.91 Acute UTI N39.0 Generalized weakness R53.1 Benign essential HTN I10 Aortic regurgitation I35.1 Cardiac valve disease etiology: nonrheumatic ERIK (acute kidney injury) N17.9
[2021-09-12] MEDS: metoprolol tartrate 50 mg Tablet PO (17:35)
--- NOTE | 2021-09-12 18:16 | PC.NURSE ---
1808 Attempted to call report on pt. Spoke with Rose. Was placed on hold for nurse. No answer 10 min. Will call back.
--- NOTE | 2021-09-12 18:21 | PC.NURSE ---
Called back, 2nd attempt. Elizabeth stated that Noni will call back for report.
[2021-09-12 18:55] VITALS: BP 117/68; PULSE 101; RESP 18; O2SAT 98
[2021-09-12 19:26] VITALS: BMI 32.5
[2021-09-12 19:41] VITALS: BP 117/86; PULSE 104; RESP 18; TEMP 36.9; O2SAT 97
[2021-09-12 20:00] VITALS: BP 117/86; PULSE 102; RESP 18; TEMP 36.9; O2SAT 98
--- NOTE | 2021-09-12 20:01 | PC.NURSE ---
reported high pulse 102 to nurse
--- NOTE | 2021-09-12 20:24 | ECG_ITS ---
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: : 1945 Requested By: July Chan Order Number: [id number] Reading MD: JODI MAY Measurements Intervals [place] Rate: 107 P: [place]: QRS: -14 QRSD: 96 T: -3 QT: 336 QTc: 450 Interpretive Statements ATRIAL FIBRILLATION WITH RAPID VENTRICULAR RESPONSE INCOMPLETE RIGHT BUNDLE BRANCH BLOCK [90+ ms QRS DURATION, TERMINAL R IN V1/V2, 40+ ms S IN I/aVL/V4/V5/V6] NONSPECIFIC T-WAVE ABNORMALITY ABNORMAL RHYTHM ECG Compared to ECG 09/12/2021 15:25:29 T-wave abnormality now present Electronically Signed On 09-13-2021 14:35:40 FARM ADVISOR by JODI MAY [id number]
[2021-09-12] MEDS: sodium chloride 0.9% 1,000 ML 50 ML IV (21:09)
[2021-09-12] MEDS: metoprolol tartrate 25 mg Tablet PO (21:10)
[2021-09-12] MEDS: topiramate 100 mg Tablet PO (21:10)
[2021-09-12] MEDS: venlafaxine ER (24HR) 150 mg Capsule PO (21:11)
[2021-09-12 22:00] VITALS: PULSE 100
[2021-09-12 22:45] LABS: Troponin 5 6HR 14.36 ng/L (0-10)
[2021-09-12 22:52] LABS: Troponin 5 6HR Delta -1.64 ng/L (0-12)
[2021-09-13] VITALS (9 sets, daily range): BP systolic 105–119; BP diastolic 74–85; PULSE 76–111; RESP 16–20; TEMP 36.6–37.3; O2SAT 92–98
[2021-09-13 04:13] LABS: Basophils # 0.1 10^3/uL (0.0-0.1); Basophils % 0.6 %; Eosinophils # 0.1 10^3/uL (0.0-0.8); Hematocrit 37.7 % (37.0-47.0); Lymphocytes # 1.9 10^3/uL (0.8-4.8); Mean Corpuscular HGB Conc 31.8 g/dL (30.0-36.0); Mean Corpuscular Hemoglobin 31.7 pg (28.0-34.0); Mean Corpuscular Volume 99.5 fl (81-99); Mean Platelet Volume 10.7 fL (7.4-10.4); Monocytes # 0.9 10^3/uL (0.2-0.9); Monocytes % 10.2 %; Neutrophils # 5.88 10^3/uL (1.8-7.7); Nucleated Red Blood Cells % 0 %; Platelet Count 171 10^3/cmm (130-400); Red Blood Count 3.79 10^6/uL (4.1-5.3); Red Cell Distribution Width 13.8 % (12.1-15.1); White Blood Count 8.8 10^3/uL (4.0-10.0)
[2021-09-13 04:39] LABS: Lactate (Lactic Acid level) 0.6 mmol/L (0.5-2.2)
[2021-09-13 04:51] LABS: Alanine Aminotransferase 8 U/L (0-33); Albumin Level 3.3 g/dL (3.5-5.2); Alkaline Phosphatase 85 IU/L (35-105); Anion Gap 15.2 (5-19); Aspartate Amino Transferase 14 U/L (0-32); Blood Urea Nitrogen 23 mg/dL (8-23); Carbon Dioxide 16 mmol/L (22-29); Chloride 109 mmol/L (98-107); Globulin 2.6 g/dL (1.3-4.6); Glucose 89 mg/dL (65-115); Magnesium 1.8 mg/dL (1.7-2.3); Osmolality Calculated 285 mOsm/kg (285-295); Potassium 4.2 mmol/L (3.5-5.1); Sodium 136 mmol/L (136-145); Thyroid Stimulating Hormone 2.07 uIU/mL (0.27-4.20); Total Bilirubin 0.4 mg/dL (0.15-1.2); Total Protein 5.9 g/dL (6.6-8.7)
--- NOTE | 2021-09-13 07:00 | ECG_ITS ---
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: : 1945 Requested By: Myles Roca Order Number: [id number] Reading MD: JODI MAY Measurements Intervals [place] Rate: 102 P: [place]: QRS: 34 QRSD: 98 T: 29 QT: 334 QTc: 437 Interpretive Statements ATRIAL FIBRILLATION WITH RAPID VENTRICULAR RESPONSE INCOMPLETE RIGHT BUNDLE BRANCH BLOCK [90+ ms QRS DURATION, TERMINAL R IN V1/V2, 40+ ms S IN I/aVL/V4/V5/V6] NONSPECIFIC T-WAVE ABNORMALITY ABNORMAL RHYTHM ECG Compared to ECG 09/12/2021 17:29:15 No significant changes Electronically Signed On 09-13-2021 14:31:27 MAIL CARRIER by JODI MAY [id number]
[2021-09-13] MEDS: rivaroxaban 10 mg Tablet 20 MG PO (08:37)
[2021-09-13] MEDS: metoprolol tartrate 25 mg Tablet PO ×3 (08:37→17:24)
[2021-09-13] MEDS: topiramate 100 mg Tablet PO ×2 (08:37→17:09)
[2021-09-13] MEDS: amlodipine 5 mg Tablet PO (08:37)
[2021-09-13] MEDS: venlafaxine ER (24HR) 150 mg Capsule PO ×2 (08:37→17:09)
--- NOTE | 2021-09-13 12:02 | PC.CHAP ---
Pastoral Care Encounter/Spiritual Assessment Type of Contact [] Declined arts and sciences dean visit [] Patient/Family/Request visit [] Outpatient visit [] Follow-up visit [] Physician referral [] Code/Alert [xx] Routine visit [] Staff referral [] Actively dying [] Patient sleeping [] Family support [] [] Out of room [] Palliative care [] [] Receiving care in room [] Pre-surgical visit [] Trauma [] Long length of stay [] ICU visit [] Other: Relational/Emotional Strength [xx] Patient feels connected with others/family/visitors/staff [] Distress [] Loneliness/isolation [] Abandonment Spirituality of Patient [xx] Person of Lien [] Attends Confucianist of their Lien [xx] Believes in Prayer [xx] Reads Bible or Zoroastrian materials [] There are Spiritual issues to be addressed Apparatus Lineman Interventions [xx] Prayer [xx] Active listening [xx] Non-anxious presence [] Spiritual/emotional support [] Crisis/trauma care [] Spiritual counseling [] Bereavement support [] Provided bereavement packet [xx] Provided Bible/devotional materials [] Provided toy/stuffed animal, coloring book to patient or family member [] Provided Communion [] Anointing/[place] [] Salvation [xx] Completed spiritual assessment [] Other: Impact on Illness or Injury [] Angry [] Fearful [] Anxious [] Often cries [] Exhaustion [] Unable to work [] Unable to attend jehovah's witness [] Unable to walk/stand [] Unable to read [] Unable to drive [] Unable to eat/drink [] Unable to sleep [] Unable to be with family [] Patient intubated [] Other: Summary Patient feels better but wanted prayer for improvement. She misses her 2 dachsund dogs at home and talked about them quite a lot. Aishwarya dogs have sitter while patient in hospital but she stills worries about them. Time spent with patient 5 minutes.
[2021-09-13] MEDS: cefTRIAXone 1,000 MG in sodium chloride 0.9% (plus) 50 ML 100 MG IV (16:28)
[2021-09-13] MEDS: sodium chloride 0.9% 1,000 ML 50 ML IV (16:28)
--- NOTE | 2021-09-13 18:00 | USCV_ITS ---
Tamika France Age: 75 Gender: F : 1945 Exam Date: 09/13/2021 06:53 Ordering Phys: Myles Roca MD Technologist: Vanessa Niño Exam Location: [facility] [place] Indication: Chest pain BP: 116 / 81 HR: 95 Rhythm: Sinus Technical Quality: Fair MEASUREMENTS (Male / Female) Normal Values 2D ECHO LV Diastolic Diameter PLAX 4.0 cm 4.2 - 5.9 / 3.9 - 5.3 cm LV Systolic Diameter PLAX 2.8 cm LV Chamber Size 4.1 cm IVS Diastolic Thickness 1.2 cm 0.6 - 1.0 / 0.6 - 0.9 cm IVS Systolic Thickness 1.7 cm LVPW Diastolic Thickness 0.8 cm 0.6 - 1.0 / 0.6 - 0.9 cm LVPW Systolic Thickness 0.9 cm RV Chamber Size 1.8 cm LVOT Diameter 1.9 cm LV Ejection Fraction 2D Teich 59.3 % LV Ejection Fraction MOD 2C 58.6 % LV Ejection Fraction 2C AL 56.5 % LA Diameter 3.4 cm LA Width 3.3 cm LA Height 4.7 cm RA Width 3.0 cm RA Height 4.8 cm Aorta at Sinotubular Diameter 2.7 cm M-MODE LV Diastolic Diameter MM 5.4 cm 4.2 - 5.9 / 3.9 - 5.3 cm LV Systolic Diameter MM 4.1 cm LV Ejection Fraction MM Teich 47.8 % IVS Diastolic Thickness MM 0.8 cm 0.6 - 1.0 / 0.6 - 0.9 cm IVS Systolic Thickness MM 1.1 cm LVPW Diastolic Thickness MM 0.9 cm 0.6 - 1.0 / 0.6 - 0.9 cm LVPW Systolic Thickness MM 1.1 cm RV Diastolic Diameter MM 1.3 cm Aortic Annulus Diameter 3.1 cm LA Ao Ratio MM 1.3 MV E Point Septal Separation 0.7 cm DOPPLER AV Peak Velocity 102.0 cm/s LVOT Peak Velocity 84.0 cm/s AV Area Cont Eq vti 2.6 cm squared AV Area Cont Eq pk 2.4 cm squared MV Area PHT 6.7 cm squared MV E' Velocity 78.0 cm/s TR Peak Velocity 234.2 cm/s TR Peak Gradient 21.9 mmHg TR Mean Velocity 193.5 cm/s TR Mean Gradient 16.2 mmHg TR Velocity Time Integral 64.5 cm TV Peak E Velocity 72.0 cm/s Right Atrial Pressure 8.0 mmHg Pulmonary Artery Systolic Pressu 29.9 mmHg PV Peak Velocity 86.0 cm/s FINDINGS Left Ventricle Normal left ventricular cavity size. Mildly decreased left ventricular systolic function. Left ventricular ejection fraction is estimated at 50 %. There appeared to be global hypokinesis however due to [id number] variation left ventricle ejection fraction and wall motion cannot be assessed accurately Right Ventricle The right ventricle is normal in size and function. Right Atrium Moderately increased right atrial size. Left Atrium Moderately increased left atrial size. Mitral Valve Mildly thickened mitral valve. No mitral valve stenosis. Mild mitral valve regurgitation. Aortic Valve Mild aortic valve calcification. No aortic valve stenosis. Trace aortic valve regurgitation. Tricuspid Valve Moderate tricuspid valve regurgitation. Pulmonic Valve Structurally normal pulmonic valve without significant stenosis. There is no pulmonic regurgitation. Pericardium Normal pericardium without effusion. Aorta Normal ascending aorta dimension. CONCLUSIONS 1-Normal left ventricular cavity size. Mildly decreased left ventricular systolic function. Left ventricular ejection fraction is estimated at 50 %. There appeared to be global hypokinesis however due to ezbs-ae-[id number] variation left ventricle ejection fraction and wall motion cannot be assessed accurately. 2-Moderate biatrial enlargement 3-Mildly thickened mitral valve. No mitral valve stenosis. Mild mitral valve regurgitation. 4-Mild aortic valve calcification. No aortic valve stenosis. Trace aortic valve regurgitation. 5-Moderate tricuspid valve regurgitation. 6-There is no pericardial effusion. 7-Right atrial pressure is around 20 mm of mercury. 8-when compared to the prior echocardiogram dated July 28, 2018 left ventricle ejection fraction is mildly reduced from normal 55% to 50% which could be due to flhw-[id number]-[id number] variation secondary to atrial fibrillation and may not be accurate. There appeared to be worsening of mitral valve regurgitation from normal to mild now. There is worsening of tricuspid valve regurgitation from mild to moderate now. Patient appeared to be volume overloaded as evident by IVC/right atrial pressure of 20 mmHg. Rl Madsen MD (Electronically Signed) Final Date: 13 September 2021 15:17 S
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
--- NOTE | 2021-09-13 20:20 | CTR_ITS ---
PROCEDURE INFORMATION: Exam: CT Head Without Contrast Exam date and time: 09/13/2021 8:20 PM Age: 75 years old Clinical indication: Patient HX: C/O dizziness. History of dementia. ; Additional info: Persistent dizziness TECHNIQUE: Imaging protocol: Computed tomography of the head without contrast. Radiation optimization: All CT scans at this facility use at least one of these dose optimization techniques: automated exposure control; mA and/or kV adjustment per patient size (includes targeted exams where dose is matched to clinical indication); or iterative reconstruction. COMPARISON: CT head wo con* [id number] 02/14/2020 5:51 PM RADIATION DOSE METRICS: Total DLP (mGy-cm): 828.44 FINDINGS: Brain: No acute intracranial hemorrhage or mass effect. There is decreased attenuation in the periventricular white matter, likely from microvascular disease. No definite acute infarct by CT. MRI could be more sensitive/specific for detection, as clinically directed. Cerebral ventricles: Ventricle size is normal for age. Paranasal sinuses: Included paranasal sinuses are essentially clear. Mastoid air cells: No significant acute finding. Vasculature: Vascular calcifications in the internal carotid arteries. Bones/joints: No definite acute skull fracture. CT/CT head wo con* [id number] IMPRESSION: 1. No acute intracranial hemorrhage or mass effect. 2. Changes of microvascular disease. 3. No definite acute infarct by CT, see above. 4. Other findings discussed above. Radiation Dose CTDIVOL = (mGy): DLP = 828.44 (mGy-cm)
[2021-09-14] VITALS (10 sets, daily range): BP systolic 95–102; BP diastolic 67–72; PULSE 90–115; RESP 16–20; TEMP 36.4–37.1; O2SAT 93–97
[2021-09-14 05:40] LABS: Basophils % 0.6 %; Eosinophils # 0.1 10^3/uL (0.0-0.8); Hematocrit 35.3 % (37.0-47.0); Hemoglobin 11.2 g/dL (11.5-15.3); Lymphocytes # 1.8 10^3/uL (0.8-4.8); Lymphocytes % 26.4 %; Mean Corpuscular HGB Conc 31.7 g/dL (30.0-36.0); Mean Corpuscular Hemoglobin 31.6 pg (28.0-34.0); Mean Corpuscular Volume 99.7 fl (81-99); Mean Platelet Volume 11.8 fL (7.4-10.4); Monocytes # 0.7 10^3/uL (0.2-0.9); Neutrophils # 3.98 10^3/uL (1.8-7.7); Neutrophils % 59.8 %; Nucleated Red Blood Cells % 0 %; Platelet Count 178 10^3/cmm (130-400); Red Blood Count 3.54 10^6/uL (4.1-5.3); Red Cell Distribution Width 13.7 % (12.1-15.1); White Blood Count 6.6 10^3/uL (4.0-10.0)
[2021-09-14 06:04] LABS: Alanine Aminotransferase 9 U/L (0-33); Alkaline Phosphatase 81 IU/L (35-105); Chloride 113 mmol/L (98-107); Potassium 4.3 mmol/L (3.5-5.1); Sodium 142 mmol/L (136-145)
[2021-09-14 06:18] LABS: Anion Gap 15.3 (5-19); Aspartate Amino Transferase 12 U/L (0-32); Blood Urea Nitrogen 20 mg/dL (8-23); Calcium 8.2 mg/dL (8.5-10.5); Carbon Dioxide 18 mmol/L (22-29); Globulin 2.7 g/dL (1.3-4.6); Glucose 79 mg/dL (65-115); Osmolality Calculated 296 mOsm/kg (285-295); Total Bilirubin 0.3 mg/dL (0.15-1.2); Total Protein 5.7 g/dL (6.6-8.7)
[2021-09-14] MEDS: topiramate 100 mg Tablet PO ×2 (07:53→17:27)
[2021-09-14] MEDS: risperiDONE 2 mg Tablet PO (07:53)
[2021-09-14] MEDS: metoprolol tartrate 25 mg Tablet PO ×2 (07:54→17:27)
[2021-09-14] MEDS: rivaroxaban 10 mg Tablet 20 MG PO (07:54)
[2021-09-14] MEDS: venlafaxine ER (24HR) 150 mg Capsule PO ×2 (07:54→17:37)
[2021-09-14] MEDS: cefTRIAXone 1,000 MG in sodium chloride 0.9% (plus) 50 ML 100 MG IV (17:27)
--- NOTE | 2021-09-14 20:23 | P.PN_ITS ---
Subjective Subjective: Interval history: Patient was seen and examined this morning, participated with physical therapy, she will need SNF placement to improve her strength gait and mobility. Patient continues to be in A. fib, with controlled heart rate. Blood pressure has been slightly softer today, hence amlodipine has been kept on hold. Medications: Reviewed: Yes Vitals/I&O/Wt Last Vital Signs Temp 97.6 F 09/14/21 20:00 Pulse 115 H 09/14/21 20:00 Resp 16 09/14/21 20:00 BP 100/72 09/14/21 20:00 Pulse Ox 93 09/14/21 20:00 09/14/21 09/14/21 09/14/21 06:59 14:59 22:59 Intake Total 120 / 2142.500 240 / 240 290 / 530 Balance 120 / 2142.500 240 / 240 290 / 530 Weight last 48 hrs Weight 88.677 kg Physical Exam Const: COMMON NORMALS: patient oriented x3 HENMT: COMMON NORMALS: normocephalic and atraumatic HEAD & SCALP: normoce phalic and atraumatic Chest: CHEST: Yes Symmetrical chest wall rise Resp: COMMON NORMALS: normal respiratory effort, No retractions, No use of accessory muscles and clear to auscultation bilaterally EFFORT & INSPECTION: Yes symmetric chest movement AUSCULTATION: clear to auscultation bilaterally Cardio: COMMON NORMALS: No gallops present (Cardio), No murmurs present (Cardio), No rub (Cardio) and Peripheral pulses 2+ throughout PERIPHERAL PULSES: Peripheral pulses 2+ throughout OTHER: Irregularly irregular rhythm, S1-S2 of variable intensity. GI: COMMON NORMALS: Soft to palpation, non-tender, No hepatosplenomegaly present and no masses AUSCULTATION: Yes normoactive bowel sounds PALPATION: Yes Soft to palpation and Yes No hepatosplenomegaly present RECTAL EXAM: deferred Extremity: COMMON NORMALS: no clubbing, cyanosis or edema and no pedal edema Neuro: COMMON NORMALS: patient oriented x3 Data : 09/14/21 04:33 09/14/21 04:33 Micro: Microbiology 09/12/21 15:09 Urine Culture - Final Urine,Clean Catch 09/12/21 17:42 Blood Culture - Preliminary Blood NEGATIVE TO DATE 09/12/21 15:22 Blood Culture - Preliminary Blood NEGATIVE TO DATE A&P Assessment and plan (1) Atrial fibrillation with RVR: Status: Acute (2) Acute UTI: Status: Acute (3) Generalized weakness: Status: Acute (4) Benign essential HTN: Status: Acute (5) Aortic regurgitation: Status: Acute Qualifiers: Cardiac valve disease etiology: nonrheumatic Qualified Code(s): I35.1 - Nonrheumatic aortic (valve) insufficiency (6) ERIK (acute kidney injury): Status: Acute Additional A&P Information 75 year old female with past medical history of hypertension, A. fib,Chronic atrial fibrillation, heart failure,CVA, bipolar disorder, came in with chief complaint of spinning of her head going on since today morning, denies any history of fall, these episodes are also accompanied by palpitation, as well as left-sided chest pain, radiating to back as well as nausea.She is also complaining of dysuria going on for last couple of days, she has history of recurrent UTI. She is also complaining of fatigue for last few days. Complaining of runny nose. #A. fib with RVR: 2D echo:Normal left ventricular cavity size. Mildly decreased left ventricular systolic function. Left ventricular ejection fraction is estimated at 50 %.Th ere appeared to be global hypokinesis however due to [id number] variation left ventricle ejection fraction and wall motion cannot be assessed accurately.Mild mitral valve regurgitation. TSH:Normal Patient received metoprolol pushes in the ER.Currently heart rate in 100-110S. Will give metoprolol p.o. 50 mg x 1 dose. Start her on metoprolol 25 mg p.o. twice daily. Metoprolol tartrate 5 mg IV every 4 hours as needed. #UTI: Patient has history of recurrent UTI: urine culture: Negative Ceftriaxone 1 mg IV daily #History of heart failure with reduced ejection fraction: Currently compensated. Follow-up 2D echo: Noted Intake output charting #ERIK on CKD stage III: Likely secondary dehydration Continue IV hydration, monitor BMP, Avoid nephrotoxic's #Elevated lactic acid: Follow repeat lactic acid. Low suspicion for infection. #Possibly vertigo secondary to possible URI: Cannot rule out acute CVA CT head without contrast: No acute intracranial pathology MRI brain without contrast: Orthostatic vital signs negative. Meclizine as needed. #Hypertension: Continue amlodipine DVT prophylaxis: Not needed patient on Xarelto Disposition: Patient has significant gait instability, she lives alone, says that she ambulates with a walker and a cane, seeing her significant gait instability, she is at extremely high risk for fall. Will involve PT OT, as well as professor of social work in the care of the patient, she will need SNF placement. CODE STATUS: Full code Attestations Medical Necessity Statement*: Patient needs to be in hospital for above defined problems. Currently awaiting safe placement. Coding Level of Care Code Acute Inspection And Testing Supervisor for Chg Fwd Diagnoses Atrial fibrillation with RVR I48.91 Acute UTI N39.0 Generalized weakness R53.1 Benign essential HTN I10 Aortic regurgitation I35.1 Cardiac valve disease etiology: nonrheumatic ERIK (acute kidney injury) N17.9
[2021-09-15] VITALS (9 sets, daily range): BP systolic 91–120; BP diastolic 70–88; PULSE 94–108; RESP 15–18; TEMP 36.4–37.2; O2SAT 93–97
[2021-09-15 05:10] LABS: Basophils # 0.1 10^3/uL (0.0-0.1); Eosinophils # 0.2 10^3/uL (0.0-0.8); Hematocrit 38.3 % (37.0-47.0); Lymphocytes # 1.6 10^3/uL (0.8-4.8); Mean Corpuscular HGB Conc 31.3 g/dL (30.0-36.0); Mean Corpuscular Hemoglobin 31.8 pg (28.0-34.0); Mean Corpuscular Volume 101.6 fl (81-99); Mean Platelet Volume 11.3 fL (7.4-10.4); Monocytes # 0.6 10^3/uL (0.2-0.9); Monocytes % 10.7 %; Neutrophils % 57.1 %; Nucleated Red Blood Cells % 0 %; Platelet Count 189 10^3/cmm (130-400); Red Blood Count 3.77 10^6/uL (4.1-5.3)
[2021-09-15 05:34] LABS: Alanine Aminotransferase 10 U/L (0-33); Albumin Level 3.1 g/dL (3.5-5.2); Alkaline Phosphatase 76 IU/L (35-105); Chloride 115 mmol/L (98-107); Potassium 4.3 mmol/L (3.5-5.1); Sodium 143 mmol/L (136-145)
[2021-09-15 05:50] LABS: Anion Gap 16.3 (5-19); Aspartate Amino Transferase 12 U/L (0-32); Blood Urea Nitrogen 22 mg/dL (8-23); Calcium 7.8 mg/dL (8.5-10.5); Carbon Dioxide 16 mmol/L (22-29); Globulin 2.7 g/dL (1.3-4.6); Glucose 102 mg/dL (65-115); Osmolality Calculated 300 mOsm/kg (285-295); Total Bilirubin 0.2 mg/dL (0.15-1.2); Total Protein 5.8 g/dL (6.6-8.7)
[2021-09-15] MEDS: metoprolol tartrate 25 mg Tablet PO ×2 (08:03→18:03)
[2021-09-15] MEDS: topiramate 100 mg Tablet PO ×2 (08:04→17:04)
[2021-09-15] MEDS: rivaroxaban 10 mg Tablet 20 MG PO (08:04)
[2021-09-15] MEDS: risperiDONE 2 mg Tablet PO (08:04)
[2021-09-15] MEDS: venlafaxine ER (24HR) 150 mg Capsule PO ×2 (08:04→17:04)
--- NOTE | 2021-09-15 10:12 | PC.SOCIAL ---
IMM Update Pg. 2 of IMM updated and reviewed with patient, who verbalized understanding. Copy provided.
--- NOTE | 2021-09-15 13:36 | P.PN_ITS ---
Subjective Subjective: Interval history: Patient was seen and examined this morning, no acute events overnight, continue to work with physical therapy. Heart rate is better controlled, blood pressure has been slightly softer today. Medications: Reviewed: Yes Vitals/I&O/Wt Last Vital Signs Temp 97.8 F 09/15/21 12:50 Pulse 98 09/15/21 12:50 Resp 18 09/15/21 12:50 BP 108/86 09/15/21 12:50 Pulse Ox 93 09/15/21 12:50 09/14/21 09/15/21 09/15/21 22:59 06:59 14:59 Intake Total 410 / 650 840 / 840 Balance 410 / 650 840 / 840 Weight last 48 hrs Weight 88.677 kg Physical Exam Const: COMMON NORMALS: patient oriented x3 HENMT: COMMON NORMALS: normocephalic and atraumatic HEAD & SCALP: normocephalic and atraumatic Chest: CHEST: Yes Symmetrical chest wall rise Resp: COMMON NORMALS: normal respiratory effort, No retractions, No use of accessory muscles and clear to auscultation bilaterally EFFORT & INSPECTION: Yes symmetric chest movement AUSCULTATION: clear to auscultation bilaterally Cardio: COMMON NORMALS: No gallops present (Cardio), No murmurs present (Cardio), No rub (Cardio) and Peripheral pulses 2+ throughout PERIPHERAL PULSES: Peripheral pulses 2+ throughout OTHER: Irregularly irregular rhythm, S1-S2 of variable intensity. GI: COMMON NORMALS: Soft to palpation, non-tender, No hepatosplenomegaly present and no masses AUSCULTATION: Yes normoactive bowel sounds PALPATION: Yes Soft to palpation and Yes No hepatosplenomegaly present RECTAL EXAM: deferred Extremity: COMMON NORMALS: no clubbing, cyanosis or edema and no pedal edema Neuro: COMMON NORMALS: patient oriented x3 Data : 09/15/21 04:37 09/15/21 04:37 Micro: Microbiology 09/12/21 15:09 Urine Culture - Final Urine,Clean Catch A&P Assessment and plan (1) Atrial fibrillation with RVR: Status: Acute (2) Acute UTI: Status: Acute (3) Generalized weakness: Status: Acute (4) Benign essential HTN: Status: Acute (5) Aortic regurgitation: Status: Acute Qualifiers: Cardiac valve disease etiology: nonrheumatic Qualified Code(s): I35.1 - Nonrheumatic aortic (valve) insufficiency (6) ERIK (acute kidney injury): Status: Acute Additional A&P Information 75 year old female with past medical history of hypertension, A. fib,Chronic atrial fibrillation, heart failure,CVA, bipolar disorder, came in with chief complaint of spinning of her head going on since today morning, denies any history of fall, these episodes are also accompanied by palpitation, as well as left-sided chest pain, radiating to back as well as nausea.She is also complaining of dysuria going on for last couple of days, she has history of recurrent UTI. She is also complaining of fatigue for last few days. Complaining of runny nose. #A. fib with RVR: 2D echo:Normal left ventricular cavity size. Mildly decreased left ventricular systolic function. Left ventricular ejection fraction is estimated at 50 %.There appeared to be global hypokinesis however due to [id number] variation left ventricle ejection fraction and wall motion cannot be assessed accurately.Mild mitral valve regurgitation. TSH:Normal Patient received metoprolol pushes in the ER.Currently heart rate in 100-110S. Will give metoprolol p.o. 50 mg x 1 dose. Start her on metoprolol 25 mg p.o. twice daily. Metoprolol tartrate 5 mg IV every 4 hours as needed. #UTI: Patient has history of recurrent UTI: urine culture: Negative Ceftriaxone 1 mg IV daily #History of heart failure with reduced ejection fraction: Currently compensated. Follow-up 2D echo: Noted Intake output charting #ERIK on CKD stage III: Likely secondary dehydration Continue IV hydration, monitor BMP, Avoid nephrotoxic's #Elevated lactic acid: Follow repeat lactic acid. Low suspicion for infection. #Possibly vertigo secondary to possible URI: Cannot rule out acute CVA CT head without contrast: No acute intracranial pathology Follow MRI brain without contrast: Orthostatic vital signs negative. Meclizine as needed. #Hypertension: Continue amlodipine DVT prophylaxis: Not needed patient on Xarelto Disposition: Patient has significant gait instability, she lives alone, says that she ambulates with a walker and a cane, seeing her significant gait instability, she is at extremely high risk for fall. Will involve PT OT, as well as home health care social worker in the care of the patient, she will need SNF placement. CODE STATUS: Full code Attestations Medical Necessity Statement*: Patient is currently awaiting usp placement. Coding Level of Care Code Acute Rn Surgical Pcu for Chg Fwd Exam Detailed Diagnoses Atrial fibrillation with RVR I48.91 Acute UTI N39.0 Generalized weakness R53.1 Benign essential HTN I10 Aortic regurgitation I35.1 Cardiac valve disease etiology: nonrheumatic ERIK (acute kidney injury) N17.9
[2021-09-15] MEDS: cefTRIAXone 1,000 MG in sodium chloride 0.9% (plus) 50 ML 100 MG IV (17:04)
[2021-09-16] VITALS: BP 112/77; PULSE 109; RESP 17; TEMP 36.8; O2SAT 94
[2021-09-16 04:00] VITALS: BP 109/79; PULSE 111; RESP 16; TEMP 36.7; O2SAT 94
[2021-09-16 08:00] VITALS: BP 131/90; PULSE 127; RESP 17; TEMP 36.9; O2SAT 95
[2021-09-16] MEDS: rivaroxaban 10 mg Tablet 20 MG PO (08:39)
[2021-09-16] MEDS: risperiDONE 2 mg Tablet PO (08:39)
[2021-09-16] MEDS: topiramate 100 mg Tablet PO ×2 (08:39→18:54)
[2021-09-16] MEDS: venlafaxine ER (24HR) 150 mg Capsule PO ×2 (08:39→21:02)
[2021-09-16] MEDS: metoprolol tartrate 25 mg Tablet PO ×2 (08:39→12:02)
[2021-09-16] MEDS: metoprolol tartrate 1 mg/1 mL SDV 5 mL 5 MG IVP (09:18)
[2021-09-16 12:00] VITALS: BP 90/50; PULSE 94; RESP 17; TEMP 36.6; O2SAT 92
[2021-09-16 16:00] VITALS: BP 131/68; PULSE 97; RESP 17; TEMP 37.2; O2SAT 99
--- NOTE | 2021-09-16 18:43 | P.PN_ITS ---
Subjective Subjective: Interval history: Patient was seen this morning, she is currently sitting up in a chair denies any lightheadedness, dizziness, no unsteadiness, is working with physical therapy, she tells me that this typically happens when she gets a UTI Vitals/I&O/Wt Last Vital Signs Temp 99.0 F 09/16/21 16:00 Pulse 97 09/16/21 16:00 Resp 17 09/16/21 16:00 BP 131/68 09/16/21 16:00 Pulse Ox 99 09/16/21 16:00 09/16/21 09/16/21 09/16/21 06:59 14:59 22:59 Intake Total 480 / 480 Balance 480 / 480 Physical Exam Const: COMMON NORMALS: no acute distress and patient oriented x3 Resp: COMMON NORMALS: normal respiratory effort, No retractions, No use of accessory muscles and clear to auscultation bilaterally AUSCULTATION: clear to auscultation bilaterally Cardio: COMMON NORMALS: regular rate, regular rhythm, S1 normal heart sound present and S2 normal heart sound present RATE: regular rate RHYTHM: regular rhythm HEART SOUNDS: S1 normal heart sound present and S2 normal heart sound present GI: COMMON NORMALS: Normal to inspection, nondistended, normoactive bowel sounds present, Soft to palpation and non-tender PALPATION: Yes Soft to palpation Extremity: COMMON NORMALS: no pedal edema Neuro: COMMON NORMALS: patient oriented x3 Psych: COMMON NORMALS: mental status grossly normal Data : 09/15/21 04:37 09/15/21 04:37 A&P Assessment and plan (1) Atrial fibrillation with RVR: Status: Acute (2) Acute UTI: Status: Acute (3) Generalized weakness: Status: Acute (4) Benign essential HTN: Status: Acute (5) Aortic regurgitation: Status: Acute Qualifiers: Cardiac valve disease etiology: nonrheumatic Qualified Code(s): I35.1 - Nonrheumatic aortic (valve) insufficiency (6) ERIK (acute kidney injury): Status: Acute Additional A&P Information 75 year old female with past medical history of hypertension, A. fib,Chronic atrial fibrillation, heart failure,CVA, bipolar disorder, came in with chief complaint of spinning of her head going on since today morning, denies any history of fall, these episodes are also accompanied by palpitation, as well as left-sided chest pain, radiating to back as well as nausea.She is also complaining of dysuria going on for last couple of days, she has history of recurrent UTI. She is also complaining of fatigue for last few days. Complaining of runny nose. #A. fib with RVR: 2D echo:Normal left ventricular cavity size. Mildly decreased left ventricular systolic function. Left ventricular ejection fraction is estimated at 50 %.There appeared to be global hypokinesis however due to [id number]-[id number] variation left ventricle ejection fraction and wall motion cannot be assessed accurately.Mild mitral valve regurgitation. TSH:Normal Patient received metoprolol pushes in the ER.Currently heart rate in 100-110S. Will give metoprolol p.o. 50 mg x 1 dose. Start her on metoprolol 25 mg p.o. twice daily. Metoprolol tartrate 5 mg IV every 4 hours as needed. -This morning she developed A. fib, heart rates in the 140s, I gave her 5 mg IV metoprolol once, with an extra 25 mg with Doppler, heart rates improved to the 90s, increase metoprolol to 50 twice daily #UTI: Patient has history of recurrent UTI: urine culture: Negative Blood cultures negative Ceftriaxone 1 mg IV daily #History of heart failure with reduced ejection fraction: Currently compensated. Follow-up 2D echo: Noted Intake output charting #ERIK on CKD stage III: Likely secondary dehydration Continue IV hydration, monitor BMP, Avoid nephrotoxic's #Elevated lactic acid: Follow repeat lactic acid. Low suspicion for infection. #Possibly vertigo secondary to possible UTI: Cannot rule out acute CVA CT head without contrast: No acute intracranial pathology Follow MRI brain without contrast Carotid artery ultrasound Orthostatic vital signs negative. Meclizine as needed. #Hypertension: Continue amlodipine DVT prophylaxis: Not needed patient on Xarelto Disposition: Patient has significant gait instability, she lives alone, says that she ambulates with a walker and a cane, seeing her significant gait instability, she is at extremely high risk for fall. Will involve PT OT, as well as manager social media in the care of the patient, she will need SNF placement. CODE STATUS: Full code Attestations Medical Necessity Statement*: Patient requires hospitalization for atrial fibr illation, with RVR dizziness, UTI Coding Level of Care Code Acute Riveter Helper for [employer] Fw Diagnoses Atrial fibrillation with RVR I48.91 Acute UTI N39.0 Generalized weakness R53.1 Benign essential HTN I10 Aortic regurgitation I35.1 Cardiac valve disease etiology: nonrheumatic ERIK (acute kidney injury) N17.9
[2021-09-16] MEDS: cefTRIAXone 1,000 MG in sodium chloride 0.9% (plus) 50 ML 100 MG IV (18:55)
[2021-09-16 20:00] VITALS: BP 107/76; PULSE 90; RESP 17; TEMP 36.8; O2SAT 91
[2021-09-16] MEDS: metoprolol tartrate 50 mg Tablet PO (21:02)
[2021-09-17] VITALS (8 sets, daily range): BP systolic 88–110; BP diastolic 63–77; PULSE 81–106; RESP 13–18; TEMP 36.4–36.9; O2SAT 91–98
[2021-09-17 06:05] LABS: Basophils # 0.1 10^3/uL (0.0-0.1); Basophils % 1.4 %; Eosinophils # 0.2 10^3/uL (0.0-0.8); Eosinophils % 3.8 %; Hematocrit 36.6 % (37.0-47.0); Hemoglobin 11.6 g/dL (11.5-15.3); Lymphocytes # 1.9 10^3/uL (0.8-4.8); Lymphocytes % 32.5 %; Mean Corpuscular HGB Conc 31.7 g/dL (30.0-36.0); Mean Corpuscular Hemoglobin 31.8 pg (28.0-34.0); Mean Corpuscular Volume 100.3 fl (81-99); Mean Platelet Volume 11.5 fL (7.4-10.4); Monocytes # 0.6 10^3/uL (0.2-0.9); Monocytes % 9.7 %; Neutrophils # 3.01 10^3/uL (1.8-7.7); Neutrophils % 52.4 %; Nucleated Red Blood Cells % 0 %; Platelet Count 215 10^3/cmm (130-400); Red Blood Count 3.65 10^6/uL (4.1-5.3); White Blood Count 5.8 10^3/uL (4.0-10.0)
[2021-09-17 06:23] LABS: Alanine Aminotransferase 11 U/L (0-33); Albumin Level 3.1 g/dL (3.5-5.2); Alkaline Phosphatase 82 IU/L (35-105); Anion Gap 12.4 (5-19); Aspartate Amino Transferase 10 U/L (0-32); Blood Urea Nitrogen 23 mg/dL (8-23); Calcium 8.3 mg/dL (8.5-10.5); Carbon Dioxide 20 mmol/L (22-29); Chloride 113 mmol/L (98-107); Globulin 2.5 g/dL (1.3-4.6); Glucose 80 mg/dL (65-115); Magnesium 1.9 mg/dL (1.7-2.3); Osmolality Calculated 295 mOsm/kg (285-295); Potassium 4.4 mmol/L (3.5-5.1); Sodium 141 mmol/L (136-145); Total Bilirubin 0.2 mg/dL (0.15-1.2); Total Protein 5.6 g/dL (6.6-8.7)
[2021-09-17] MEDS: rivaroxaban 10 mg Tablet 20 MG PO (09:01)
[2021-09-17] MEDS: metoprolol tartrate 50 mg Tablet PO (09:01)
[2021-09-17] MEDS: venlafaxine ER (24HR) 150 mg Capsule PO ×2 (09:01→17:17)
[2021-09-17] MEDS: risperiDONE 2 mg Tablet PO (09:01)
[2021-09-17] MEDS: topiramate 100 mg Tablet PO ×2 (09:01→17:17)
--- NOTE | 2021-09-17 10:15 | MR_ITS ---
WS: [id number] MRI HEAD WITHOUT CONTRAST TECHNIQUE: Sagittal T1, T2 axial, T2 axial FLAIR, axial and coronal T1 images, axial susceptibility w eighted imaging, axial diffusion weighted images, and coronal T2 images were obtained. CLINICAL INFORMATION: persistent dizziness and unsteady gait. Acute ischemia. COMPARISON: CT September 14, 2021 FINDINGS: No evidence of restricted diffusion to suggest acute ischemia. Ventricular system and basal cisterns are patent. Moderate small vessel changes. Moderate parenchymal volume loss. Tiny chronic lacunar inf arct right cerebellum. Normal vascular flow voids at the skull base. No extra-axial fluid collections . No evidence of mass or mass effect. Mild mucosal thickening in the ethmoid air cells and mastoid air cells. Tiny punctate focus of hemosi vanna in the left thalamus and right cerebellum. Normal optic chiasm and pituitary infundibulum. Mode rate symmetric atrophy temporal lobes and hippocampal formations. Normal cavernous sinuses and Meckel 's cave. Mild central canal stenosis in the upper cervical spine at C3-C4 with slight indentation on cervical cord partially visualized. MR/MR head wo con* [id number] IMPRESSION: 1. No evidence of restricted diffusion to suggest acute ischemia. 2. Moderate small vessel changes with moderate parenchymal volume loss. 3. Tiny chronic lacunar infarcts right cerebellum. 4. Mild mucosal thickening ethmoid air cells and mastoid air cells. 5. Mild central canal stenosis in the upper cervical spine at C3-C4 with sligh t indentation on cervical cord partially visualized. 6. Moderate symmetric atrophy temporal lobes and hippocampal formations. 7. No other significant findings.
--- NOTE | 2021-09-17 12:09 | PC.SOCIAL ---
IMM Update Pg. 2 of IMM updated and reviewed with patient, who verbalized understanding. Copy provided.
--- NOTE | 2021-09-17 12:20 | PM.PN ---
Subjective Subjective: Interval history: Patient was seen this morning, she is up with physical therapy, she tells me that her unsteadiness is improving, but she still feels unsteady on her feet at times, she is awaiting her MRI, she tells me that she feels that she would benefit from senior care care Vitals/I&O/Wt Last Vital Signs Temp 98.4 F 09/17/21 08:00 Pulse 106 H 09/17/21 08:00 Resp 16 09/17/21 08:00 BP 100/70 09/17/21 08:00 Pulse Ox 94 09/17/21 08:00 09/16/21 09/17/21 09/17/21 22:59 06:59 14:59 Intake Total 770 / 1250 240 / 240 Balance 770 / 1250 240 / 240 Physical Exam Const: COMMON NORMALS: no acute distress and patient oriented x3 Resp: COMMON NORMALS: normal respiratory effort, No retractions, No use of accessory muscles and clear to auscultation bilaterally AUSCULTATION: clear to auscultation bilaterally Cardio: COMMON NORMALS: regular rate, regular rhythm, S1 normal heart sound present and S2 normal heart sound present RATE: regular rate RHYTHM: regular rhythm HEART SOUNDS: S1 normal heart sound present and S2 normal heart sound present GI: COMMON NORMALS: Normal to inspection, nondistended, normoactive bowel sounds present and Soft to palpation PALPATION: Yes Soft to palpation Extremity: COMMON NORMALS: no pedal edema Neuro: COMMON NORMALS: patient oriented x3 Data : 09/17/21 04:59 09/17/21 04:59 A&P Assessment and plan (1) Atrial fibrillation with RVR: Status: Acute (2) Acute UTI: Status: Acute (3) Generalized weakness: Status: Acute (4) Benign essential HTN: Status: Acute (5) Aortic regurgitation: Status: Acute Qualifiers: Cardiac valve disease etiology: nonrheumatic Qualified Code(s): I35.1 - Nonrheumatic aortic (valve) insufficiency (6) ERIK (acute kidney injury): Status: Acute Additional A&P Information 75 year old female with past medical history of hypertension, A. fib,Chronic atrial fibrillation, heart failure,CVA, bipolar disorder, came in with chief complaint of spinning of her head going on since today morning, denies any history of fall, these episodes are also accompanied by palpitation, as well as left-sided chest pain, radiating to back as well as nausea.She is also complaining of dysuria going on for last couple of days, she has history of recurrent UTI. She is also complaining of fatigue for last few days. Complaining of runny nose. #A. fib with RVR: 2D echo:Normal left ventricular cavity size. Mildly decreased left ventricular systolic function. Left ventricular ejection fraction is estimated at 50 %.There appeared to be global hypokinesis however due to [id number]-gq-[id number] variation left ventricle ejection fraction and wall motion cannot be assessed accurately.Mild mitral valve regurgitation. TSH:Normal Patient received metoprolol pushes in the ER.Currently heart rate in 100-110S. Will give metoprolol p.o. 50 mg x 1 dose. Start her on metoprolol 25 mg p.o. twice daily. Metoprolol tartrate 5 mg IV every 4 hours as needed. -Heart rates under better control, continue metoprolol 50 twice daily, however heart rates do continue to elevate into the high teens with ambulation, needs to be monitored for another 24 hours #UTI: Patient has history of recurrent UTI: urine culture: Negative Blood cultures negative Stop ceftriaxone 1 mg IV daily #History of heart failure with reduced ejection fraction: Currently compensated. Follow-up 2D echo: 1-Normal left ventricular cavity size. Mildly decreased left ventricular systolic function. Left ventricular ejection fraction is estimated at 50 %. There appeared to be global hypokinesis however due to [id number]-nl-[id number] variation left ventricle ejection fraction and wall motion cannot be assessed accurately. 2-Moderate biatrial enlargement 3-Mildly thickened mitral valve. No mitral valve stenosis. Mild mitral valve regurgitation. 4-Mild aortic valve calcification. No aortic valve stenosis. Trace aortic valve regurgitation. 5-Moderate tricuspid valve regurgitation. 6-There is no pericardial effusion. 7-Right atrial pressure is around 20 mm of mercury. 8-when compared to the prior echocardiogram dated July 28, 2018 left ventricle ejection fraction is mildly reduced from normal 55% to 50% which could be due to iejh-oo-vwrh variation secondary to atrial fibrillation and may not be accurate. There appeared to be worsening of mitral valve regurgitation from normal to mild now. There is worsening of tricuspid valve regurgitation from mild to moderate now. Patient appeared to be volume overloaded as evident by IVC/right atrial pressure of 20 mmHg. Intake output charting #ERIK on CKD stage III: Likely secondary dehydration Continue IV hydration, monitor BMP, Avoid nephrotoxic's #Elevated lactic acid: Follow repeat lactic acid. Low suspicion for infection. #Possibly vertigo secondary to possible UTI: Cannot rule out acute CVA CT head without contrast: No acute intracranial pathology Follow MRI brain without contrast Carotid artery ultrasound Orthostatic vital signs negative. Meclizine as needed. #Hypertension: Continue amlodipine DVT prophylaxis: Not needed patient on Xarelto Disposition: Patient has significant gait instability, she lives alone, says that she ambulates with a walker and a cane, seeing her significant gait instability, she is at extremely high risk for fall. Will involve PT OT, as well as social sciences professor in the care of the patient, she will need SNF placement. CODE STATUS: Full code Attestations Medical Necessity Statement*: Patient requires hospitalization for A. fib with RVR, UTI, unsteadiness Coding Level of Care Code Acute Spanish Professor for g Fwd Diagnoses Atrial fibrillation with RVR I48.91 Acute UTI N39.0 Generalized weakness R53.1 Benign essential HTN I10 Aortic regurgitation I35.1 Cardiac valve disease etiology: nonrheumatic ERIK (acute kidney injury) N17.9
--- NOTE | 2021-09-17 18:35 | PC.NURSE ---
PATIENT HAS DONE WELL TODAY. SAT UP IN THE CHAIR FOR QUITE AWHILE. BP DROPPED TO 80S SYSTOLIC WHILE SITTING UP. DR. HENSLEY NOTIFIED. METOPROLOL DECREASED FROM 50MG TO 25MG. PATIENT HAS GOOD INTAKE AND OUTPUT. NO COMPLAINTS OF PAIN.
--- NOTE | 2021-09-17 18:46 | USCV_ITS ---
Tamika France Age: 75 Gender: F : 1945 Exam Date: 09/17/2021 09:42 Ordering Phys: Timur Joyner MD Technologist: MATTHEW Exam Location: [facility] [place] Indication: Vertigo Risk Factors: Previous Vascular Surgery: Right Brachial BP: / Left Brachial BP: / Right Left Velocity (cm/s) Spectral Plaque Velocity (cm/s) Spectral Plaque Syst/Diast Broadening Syst/Diast Broadening 100.80/18.30 Prox CCA 55.50 / 19.40 60.30/ 15.50 Mid CCA 53.20 / 19.70 56.10/ 16.60 Distal CCA 51.90 / 17.10 55.00/ 25.60 Prox ICA 36.50 / 12.00 36.40/ 16.00 Mid ICA 57.80 / 23.00 32.10/ 13.00 Distal ICA 57.80 / 25.60 43.80 ECA 55.20 0.91 ICA/CCA 1.09 Antegrade Vertebral Antegrade 28.20/ 12.10 cm/s 62.40/ 25.00 cm/s Bi Subclavian Bi 49.60 76.20 CONCLUSIONS Right ICA stenosis <50%. Left ICA stenosis <50%. Normal antegrade Doppler flow noted in the right vertebral artery. Normal antegrade Doppler flow noted in the left vertebral artery. Antonio Chun MD (Electronically Signed) Final Date: 18 September 2021 08:20 S
[2021-09-17] MEDS: metoprolol tartrate 25 mg Tablet PO (21:14)
--- NOTE | 2021-09-17 21:22 | PC.NURSE ---
ROUNDING Pt care assumed at this time. Pt resting in bed. No c/o. Says she has been less dizzy and unsteady when up today. Given pm med. Bed alarm on for safety and pt aware not to be up without assist
[2021-09-18] VITALS (11 sets, daily range): BP systolic 77–117; BP diastolic 60–84; PULSE 85–103; RESP 14–19; TEMP 36.5–36.9; O2SAT 93–97
[2021-09-18 06:35] LABS: Basophils # 0.1 10^3/uL (0.0-0.1); Eosinophils # 0.2 10^3/uL (0.0-0.8); Hematocrit 37.1 % (37.0-47.0); Hemoglobin 11.8 g/dL (11.5-15.3); Lymphocytes # 1.9 10^3/uL (0.8-4.8); Lymphocytes % 27.7 %; Mean Corpuscular HGB Conc 31.8 g/dL (30.0-36.0); Mean Corpuscular Hemoglobin 31.2 pg (28.0-34.0); Mean Corpuscular Volume 98.1 fl (81-99); Mean Platelet Volume 11.3 fL (7.4-10.4); Monocytes # 0.5 10^3/uL (0.2-0.9); Monocytes % 7.2 %; Neutrophils # 4.23 10^3/uL (1.8-7.7); Neutrophils % 60.8 %; Nucleated Red Blood Cells % 0 %; Platelet Count 216 10^3/cmm (130-400); Red Blood Count 3.78 10^6/uL (4.1-5.3)
[2021-09-18 06:50] LABS: Alanine Aminotransferase 13 U/L (0-33); Albumin Level 3.4 g/dL (3.5-5.2); Alkaline Phosphatase 82 IU/L (35-105); Anion Gap 14.3 (5-19); Aspartate Amino Transferase 11 U/L (0-32); Blood Urea Nitrogen 20 mg/dL (8-23); Carbon Dioxide 17 mmol/L (22-29); Chloride 112 mmol/L (98-107); Globulin 2.1 g/dL (1.3-4.6); Glucose 76 mg/dL (65-115); Magnesium 1.9 mg/dL (1.7-2.3); Osmolality Calculated 289 mOsm/kg (285-295); Phosphorus 3.4 mg/dL (2.5-4.5); Potassium 4.3 mmol/L (3.5-5.1); Sodium 139 mmol/L (136-145); Total Bilirubin 0.2 mg/dL (0.15-1.2); Total Protein 5.5 g/dL (6.6-8.7)
[2021-09-18] MEDS: venlafaxine ER (24HR) 150 mg Capsule PO ×2 (08:37→17:04)
[2021-09-18] MEDS: rivaroxaban 10 mg Tablet 20 MG PO (08:37)
[2021-09-18] MEDS: metoprolol tartrate 25 mg Tablet PO ×2 (08:37→20:05)
[2021-09-18] MEDS: topiramate 100 mg Tablet PO ×2 (08:37→17:04)
[2021-09-18] MEDS: risperiDONE 2 mg Tablet PO (08:42)
--- NOTE | 2021-09-18 16:26 | PM.PN ---
Subjective Subjective: Interval history: Patient was seen this morning, no fevers, chills, nausea, vomiting, Vitals/I&O/Wt Last Vital Signs Temp 97.7 F 09/18/21 15:56 Pulse 93 09/18/21 15:56 Resp 14 09/18/21 15:56 BP 89/64 09/18/21 15:56 Pulse Ox 96 09/18/21 15:56 09/18/21 09/18/21 09/18/21 06:59 14:59 22:59 Intake Total 150 / 990 480 / 480 Balance 150 / -10 480 / 480 Physical Exam Const: COMMON NORMALS: no acute distress and patient oriented x3 Resp: COMMON NORMALS: normal respiratory effort, No retractions, No use of accessory muscles and clear to auscultation bilaterally AUSCULTATION: clear to auscultation bilaterally Cardio: COMMON NORMALS: regular rate, regular rhythm, S1 normal heart sound present and S2 normal heart sound present RATE: regular rate RHYTHM: regular rhythm HEART SOUNDS: S1 normal heart sound present and S2 normal heart sound present GI: COMMON NORMALS: Normal to inspection, nondistended, normoactive bowel sounds present, Soft to palpation, non-tender, No hepatosplenomegaly present and no masses PALPATION: Yes Soft to palpation and Yes No hepatosplenomegaly present Extremity: COMMON NORMALS: no pedal edema Neuro: COMMON NORMALS: patient oriented x3 Psych: COMMON NORMALS: mental status grossly normal Data : 09/18/21 05:53 09/18/21 05:53 Micro: Microbiology 09/12/21 17:42 Blood Culture - Final Blood NO GROWTH AFTER 5 DAYS 09/12/21 15:22 Blood Culture - Final Blood NO GROWTH AFTER 5 DAYS A&P Assessment and plan (1) Atrial fibrillation with RVR: Status: Acute (2) Acute UTI: Status: Acute (3) Generalized weakness: Status: Acute (4) Benign essential HTN: Status: Acute (5) Aortic regurgitation: Status: Acute Qualifiers: Cardiac valve disease etiology: nonrheumatic Qualified Code(s): I35.1 - Nonrheumatic aortic (valve) insufficiency (6) ERIK (acute kidney injury): Status: Acute Additional A&P Information 75 year old female with past medical history of hypertension, A. fib,Chronic atrial fibrillation, heart failure,CVA, bipolar disorder, came in with chief complaint of spinning of her head going on since today morning, denies any history of fall, these episodes are also accompanied by palpitation, as well as left-sided chest pain, radiating to back as well as nausea.She is also complaining of dysuria going on for last couple of days, she has history of recurrent UTI. She is also complaining of fatigue for last few days. Complaining of runny nose. #A. fib with RVR: 2D echo:Normal left ventricular cavity size. Mildly decreased left ventricular systolic function. Left ventricular ejection fraction is estimated at 50 %.There appeared to be global hypokinesis however due to lqgi-zl-hefq variation left ventricle ejection fraction and wall motion cannot be assessed accurately.Mild mitral valve regurgitation. TSH:Normal Patient received metoprolol pushes in the ER.Currently heart rate in 100-110S. Will give metoprolol p.o. 50 mg x 1 dose. Start her on metoprolol 25 mg p.o. twice daily. Metoprolol tartrate 5 mg IV every 4 hours as needed. -Did have hypotensive episodes, switch back to metoprolol 25 twice daily #UTI: Patient has history of recurrent UTI: urine culture: Negative Blood cultures negative Stop ceftriaxone 1 mg IV daily #History of heart failure with reduced ejection fraction: Currently compensated. Follow-up 2D echo: 1-Normal left ventricular cavity size. Mildly decreased left ventricular systolic function. Left ventricular ejection fraction is estimated at 50 %. There appeared to be global hypokinesis however due to jqxf-jj-lerc variation left ventricle ejection fraction and wall motion cannot be assessed accurately. 2-Moderate biatrial enlargement 3-Mildly thickened mitral valve. No mitral valve stenosis. Mild mitral valve regurgitation. 4-Mild aortic valve calcification. No aortic valve stenosis. Trace aortic valve regurgitation. 5-Moderate tricuspid valve regurgitation. 6-There is no pericardial effusion. 7-Right atrial pressure is around 20 mm of mercury. 8-when compared to the prior echocardiogram dated July 28, 2018 left ventricle ejection fraction is mildly reduced from normal 55% to 50% which could be due to [id number]-gzvb variation secondary to atrial fibrillation and may not be accurate. There appeared to be worsening of mitral valve regurgitation from normal to mild now. There is worsening of tricuspid valve regurgitation from mild to moderate now. Patient appeared to be volume overloaded as evident by IVC/right atrial pressure of 20 mmHg. Intake output charting #ERIK on CKD stage III: Likely secondary dehydration Continue IV hydration, monitor BMP, Avoid nephrotoxic's #Elevated lactic acid: Follow repeat lactic acid. Low suspicion for infection. # unsteadiness secondary to right cerebellar CVA CT head without contrast: No acute intracranial pathology Follow MRI brain without contrast 1. No evidence of restricted diffusion to suggest acute ischemia. 2. Moderate small vessel changes with moderate parenchymal volume loss. 3. Tiny chronic lacunar infarcts right cerebellum. 4. Mild mucosal thickening ethmoid air cells and mastoid air cells. 5. Mild central canal stenosis in the upper cervical spine at C3-C4 with slight indentation on cervical cord partially visualized. 6. Moderate symmetric atrophy temporal lobes and hippocampal formations. 7. No other significant findings Carotid artery ultrasound no hemodynamically significant stenosis Orthostatic vital signs negative. Meclizine as needed. #Hypertension: Continue amlodipine DVT prophylaxis: Not needed patient on Xarelto Disposition: Patient has significant gait instability, she lives alone, says that she ambulates with a walker and a cane, seeing her significant gait instability, she is at extremely high risk for fall. Will involve PT OT, as well as social services assistant in the care of the patient, she will need SNF placement. CODE STATUS: Full code Attestations Medical Necessity Statement*: Patient requires hospitalization for right cerebellar CVA, A. fib with RVR Coding Level of Care Code Acute Traffic Monitor Specialist for Chg Fwd Diagnoses Atrial fibrillation with RVR I48.91 Acute UTI N39.0 Generalized weakness R53.1 Benign essential HTN I10 Aortic regurgitation I35.1 Cardiac valve disease etiology: nonrheumatic ERIK (acute kidney injury) N17.9
[2021-09-19] VITALS (9 sets, daily range): BP systolic 98–123; BP diastolic 66–88; PULSE 84–102; RESP 16–17; TEMP 36.4–36.9; O2SAT 94–97
[2021-09-19 06:20] LABS: Basophils # 0.1 10^3/uL (0.0-0.1); Basophils % 0.8 %; Eosinophils # 0.2 10^3/uL (0.0-0.8); Eosinophils % 3.8 %; Hematocrit 38.9 % (37.0-47.0); Lymphocytes % 32.4 %; Mean Corpuscular HGB Conc 30.8 g/dL (30.0-36.0); Mean Corpuscular Hemoglobin 32.4 pg (28.0-34.0); Mean Corpuscular Volume 105.1 fl (81-99); Monocytes # 0.5 10^3/uL (0.2-0.9); Monocytes % 7.7 %; Nucleated Red Blood Cells % 0 %; Platelet Count 203 10^3/cmm (130-400); Red Cell Distribution Width 14.1 % (12.1-15.1)
[2021-09-19 06:40] LABS: Alanine Aminotransferase 13 U/L (0-33); Albumin Level 3.2 g/dL (3.5-5.2); Alkaline Phosphatase 80 IU/L (35-105); Anion Gap 15.4 (5-19); Aspartate Amino Transferase 10 U/L (0-32); Blood Urea Nitrogen 18 mg/dL (8-23); Carbon Dioxide 16 mmol/L (22-29); Chloride 113 mmol/L (98-107); Glucose 102 mg/dL (65-115); Magnesium 1.9 mg/dL (1.7-2.3); Osmolality Calculated 292 mOsm/kg (285-295); Phosphorus 3.2 mg/dL (2.5-4.5); Potassium 4.4 mmol/L (3.5-5.1); Sodium 140 mmol/L (136-145); Total Bilirubin 0.2 mg/dL (0.15-1.2); Total Protein 5.2 g/dL (6.6-8.7)
[2021-09-19] MEDS: rivaroxaban 10 mg Tablet 20 MG PO (09:05)
[2021-09-19] MEDS: topiramate 100 mg Tablet PO (09:05)
[2021-09-19] MEDS: risperiDONE 2 mg Tablet PO (09:05)
[2021-09-19] MEDS: venlafaxine ER (24HR) 150 mg Capsule PO (09:05)
--- NOTE | 2021-09-19 10:47 | PC.SOCIAL ---
IMM Update pg 2 of IMM updated and reviewed w/ patient. Copy provided.
[2021-09-19] MEDS: dilTIAZem 30 mg Tablet PO ×2 (10:52→16:34)
[2021-09-19 11:05] LABS: SARS Covid-2 Antigen Negative (Negative)
--- NOTE | 2021-09-19 13:39 | P.DS_ITS ---
Discharge Providers Date of Admission: 09/12/21 16:32 Date of Discharge: September 19, 2021 Attending Provider at Admission: Myles Roca MD Attending Provider at Discharge: Timur Joyner MD Primary Care Provider: Mavis Jacinto Diagnoses at Discharge Discharge Diagnosis (1) Atrial fibrillation with RVR: Status: Acute (2) Acute UTI: Status: Acute (3) Generalized weakness: Status: Acute (4) Benign essential HTN: Status: Acute (5) Aortic regurgitation: Status: Acute Qualifiers: Cardiac valve disease etiology: nonrheumatic Qualified Code(s): I35.1 - Nonrheumatic aortic (valve) insufficiency (6) ERIK (acute kidney injury): Status: Acute Reason for Visit Reason for Visit: WEAKNESS Hospital Course Hospital Course Tamika France is a 75 year old female with past medical history of hypertension, A. fib,Chronic atrial fibrillation, heart failure,CVA, bipolar disorder, came in with chief complaint of spinning of her head going on since today morning, denies any history of fall, these episodes are also accompanied by palpitation, as well as left-sided chest pain, radiating to back as well as nausea She is admitted to [facility] for A. fib with RVR, and right cerebellar CVA #A. fib with RVR: 2D echo:Normal left ventricular cavity size. Mildly decreased left ventricular systolic function. Left ventricular ejection fraction is estimated at 50 %.There appeared to be global hypokinesis however due to iwbx-pi-xhps variation left ventricle ejection fraction and wall motion cannot be assessed accurately.Mild mitral valve regurgitation. TSH:Normal Patient received metoprolol pushes in the ER.Currently heart rate in 100-110S. Will give metoprolol p.o. 50 mg x 1 dose. Start her on metoprolol 25 mg p.o. twice daily. Metoprolol tartrate 5 mg IV every 4 hours as needed. -Did have hypotensive episodes, switch back to metoprolol 25 twice daily, continue to have hypotensive episodes was to metoprolol 12.5 mg twice daily, Cardizem 120 mg daily -Follow-up with cardiology #UTI: Patient has history of recurrent UTI: urine culture: Negative Blood cultures negative Rocephin was stopped after 3 days #History of heart failure with reduced ejection fraction: Currently compensated. Follow-up 2D echo: 1-Normal left ventricular cavity size. Mildly decreased left ventricular systolic function. Left ventricular ejection fraction is estimated at 50 %. There appeared to be global hypokinesis however due to lgjj-hd-[id number] variation left ventricle ejection fraction and wall motion cannot be assessed accurately. 2-Moderate biatrial enlargement 3-Mildly thickened mitral valve. No mitral valve stenosis. Mild mitral valve regurgitation. 4-Mild aortic valve calcification. No aortic valve stenosis. Trace aortic valve regurgitation. 5-Moderate tricuspid valve regurgitation. 6-There is no pericardial effusion. 7-Right atrial pressure is around 20 mm of mercury. 8-when compared to the prior echocardiogram dated July 28, 2018 left ventricle ejection fraction is mildly reduced from normal 55% to 50% which could be due to uqsu-sk-qibc variation secondary to atrial fibrillation and may not be accurate. There appeared to be worsening of mitral valve regurgitation from normal to mild now. There is worsening of tricuspid valve regurgitation from mild to moderate now. Patient appeared to be volume overloaded as evident by IVC/right atrial pressure of 20 mmHg. Intake output charting #ERIK on CKD stage III: Likely secondary dehydration Improved with IV hydration #Elevated lactic acid: Follow repeat lactic acid. Low suspicion for infection. # unsteadiness secondary to right cerebellar CVA CT head without contrast: No acute intracranial pathology Follow MRI brain without contrast 1. No evidence of restricted diffusion to suggest acute ischemia. 2. Moderate small vessel changes with moderate parenchymal volume loss. 3. Tiny chronic lacunar infarcts right cerebellum. 4. Mild mucosal thickening ethmoid air cells and mastoid air cells. 5. Mild central canal stenosis in the upper cervical spine at C3-C4 with slight indentation on cervical cord partially visualized. 6. Moderate symmetric atrophy temporal lobes and hippocampal formations. 7. No other significant findings Carotid artery ultrasound no hemodynamically significant stenosis Orthostatic vital signs negative. For her right cerebellar CVA, age undetermined, received PT OT, unsteadiness improved, managed with aspirin, statin, discharged with follow-up with neurology as above Physical Exam Const: COMMON NORMALS: no acute distress and patient oriented x3 Resp: COMMON NORMALS: normal respiratory effort, No retractions, No use of accessory muscles and clear to auscultation bilaterally AUSCULTATION: clear to auscultation bilaterally Cardio: COMMON NORMALS: regular rate, regular rhythm, S1 normal heart sound present and S2 normal heart sound present RATE: regular rate RHYTHM: regular rhythm HEART SOUNDS: S1 normal heart sound present and S2 normal heart sound present GI: COMMON NORMALS: Normal to inspection, nondistended, normoactive bowel sounds present, Soft to palpation and non-tender PALPATION: Yes Soft to palpation Extremity: COMMON NORMALS: no pedal edema Neuro: COMMON NORMALS: patient oriented x3 Psych: COMMON NORMALS: mental status grossly normal Discharge Data Data Completed and Pending: Completed Studies During Hospitalization Category Date Time Status CT head wo con* [id number] Routine Cat Scan 09/13/21 20:20 Completed XR chest 1V britt ble [id number] Urgent Exams 09/12/21 14:23 Completed MR head wo con* 7 0551 Routine MRI 09/17/21 10:15 Completed CV carotid duplex BI* [id number] Routine Ultrasound 09/17/21 18:46 Completed CV. echo complete * [id number] Routine Ultrasound 09/13/21 18:00 Completed Pending at discharge Category Date Time Status Urine Culture Rou gigi Lab 09/17/21 17:20 Results Labs from last 24 hours 09/19/21 09/19/21 09/19/21 10:36 04:56 04:56 WBC 6.0 RBC 3.70 L Hgb 12.0 Hct 38.9 MCV 105.1 H D MCH 32.4 MCHC 30.8 RDW 14.1 Plt Count 203 MPV 11.0 H Neut % (Auto) 55.0 Lymph % (Auto) 32.4 [place] % (Auto) 7.7 Eos % (Auto) 3.8 Baso % (Auto) 0.8 Neut # (Auto) 3.30 Lymph # (Auto) 2.0 [place] # (Auto) 0.5 Eos # (Auto) 0.2 Baso # (Auto) 0.1 Nucleated RBC % (a uto) 0 Nucleated RBCs # 0.0 Sodium 140 Potassium 4.4 Chloride 113 H Carbon Dioxide 16 L Anion Gap 15.4 BUN 18 Creatinine 0.7 GFR Calculation Not Reportable Glucose 102 Calculated Osmolal ity 292 Calcium 8.0 L Phosphorus 3.2 Magnesium 1.9 Total Bilirubin 0.2 AST 10 ALT 13 Alkaline Phosphata se 80 Total Protein 5.2 L Albumin 3.2 L Globulin 2.0 SARS-CoV-2 Ag (Rap id) Negative Vitals: Last Vital Signs Temp 98.4 F 09/19/21 11:33 Pulse 93 09/19/21 11:33 Resp 17 09/19/21 11:33 BP 112/80 09/19/21 11:33 Pulse Ox 97 09/19/21 11:33 Discharge Plan Discharge Patient Disposition: Xfer SNF Condition: Stable Prescriptions: New aspirin 81 mg capsule 81 mg PO DAILY 30 Days Qty: 30 RF: 0 atorvastatin 40 mg tablet 40 mg PO DAILY 30 Days Qty: 30 RF: 0 Cardizem LA 120 mg tablet extended release 24 hr 120 mg PO DAILY 30 Days Qty: 60 RF: 0 Continued sennosides-docusate sodium 8.6-50 mg tablet 1 tab-cap PO DAILY PRN (Reason: Constipation) RF: 0 calcium carbonate-vitamin D3 [Oyster Shell Calcium-Vit D3] 250-125 mg-unit tablet 1 tab PO QAM RF: 0 diclofenac sodium 1 % gel 2 g topical QID PRN (Reason: Pain) RF: 0 venlafaxine 150 mg capsule,extended release 24hr 150 mg PO QAM RF: 0 topiramate 100 mg tablet 100 mg PO BID RF: 0 Xarelto 20 mg tablet 20 mg PO QPM RF: 0 risperidone 2 mg tablet 2 mg PO BEDTIME RF: 0 Changed furosemide 40 mg tablet 20 mg PO QAM 30 Days Qty: 30 RF: 0 potassium chloride 20 mEq tablet,ER particles/crystals 10 meq PO QAM Qty: 0 RF: 0 metoprolol tartrate 25 mg tablet 12.5 mg PO BID Qty: 0 RF: 0 Discontinued amlodipine 5 mg tablet 5 mg PO QAM RF: 0 Discharge Orders: Discharge Order (Routine); Ordered 09/19/21 Ordered By: Timur Joyner Referrals: [facility] [Outside] Jeri Rodriguez MD [Physician] - 2 weeks (cerebellar cva) Mavis Jacinto [Primary Care Provider] - Lelo Capps MD [Physician] - 2 weeks Discharge Diet: Cardiac Discharge Activity: Resume usual activity Patient Instructions: Ischemic Stroke (DC) Activity Restrictions/Additional Instructions: -Please take aspirin, statin as prescribed -Please check hemoglobin in 1 week -Take Xarelto as prescribed -Take metoprolol and Cardizem as prescribed -Follow-up with cardiology in 2 weeks follow-up with neurology in 2 weeks Discharge Attestations Time Spent in Discharge Care*: less than 30 min Quality Metrics Clinical Quality Measures During this hospital stay, did patient experience: Stroke Contraindication to Antithrombotic: Antithrombotic prescribed Contraindication to Anticoagulation: Anticoagulation prescribed Contraindication to Statin: Statin prescribed Coding Level of Care Code Acute Chg FW DC note Diagnoses Atrial fibrillation with RVR I48.91 Acute UTI N39.0 Generalized weakness R53.1 Benign essential HTN I10 Aortic regurgitation I35.1 Cardiac valve disease etiology: nonrheumatic ERIK (acute kidney injury) N17.9
== END 2021-09-19 17:32 | disposition skilled nursing facility (03) | DRG 308 ==
LOC: ER 16:38 → MEDSURG 17:58
PROVIDERS: Admitting Provider Internal Medicine; Emergency Provider Emergency Medicine; PCP Nurse Practitioner Family; Visit Provider Family Medicine
DX: I48.20 Chronic atrial fibrillation, unspecified (principal); I63.81 Other cerebral infarction due to occlusion or stenosis of small artery; I13.0 Hypertensive heart and chronic kidney disease with heart failure and stage 1 through stage 4 chronic kidney disease, or unspecified chronic kidney disease; I50.22 Chronic systolic (congestive) heart failure; N39.0 Urinary tract infection, site not specified; N17.9 Acute kidney failure, unspecified; N18.30 Chronic kidney disease, stage 3 unspecified; G47.33 Obstructive sleep apnea (adult) (pediatric); F31.9 Bipolar disorder, unspecified; Z86.73 Personal history of transient ischemic attack (TIA), and cerebral infarction without residual deficits; E86.0 Dehydration; Z87.440 Personal history of urinary (tract) infections; I08.3 Combined rheumatic disorders of mitral, aortic and tricuspid valves; Z79.01 Long term (current) use of anticoagulants; R27.0 Ataxia, unspecified
CPT/HCPCS: 36415; 70450; 70551; 71045; 80053; 81001; 83605; 83690; 83735; 83880; 84100; 84443; 84484; 85025; 87040; 87077; 87086; 87186; 87426; 93005; 93306; 93880; 96365; 96375; 97110; 97116; 97162; 97167; 97530; 97535; 99285; J0696; J3490; J7030; J7040

== ENCOUNTER → 2022-07-02 12:57 | Outpatient (BNVA) | payer MEDICARE, MEDICAID, SELFPAY | PROVIDERS: PCP Nurse Practitioner Family; Visit Provider Internal Medicine Cardiovascular Disease | DX: I48.91 Unspecified atrial fibrillation (principal); I13.0 Hypertensive heart and chronic kidney disease with heart failure and stage 1 through stage 4 chronic kidney disease, or unspecified chronic kidney disease; N18.9 Chronic kidney disease, unspecified; I50.9 Heart failure, unspecified; I69.359 Hemiplegia and hemiparesis following cerebral infarction affecting unspecified side; I35.1 Nonrheumatic aortic (valve) insufficiency | CPT/HCPCS: 99213; 99214 ==

== ENCOUNTER → 2022-08-21 10:47 | Outpatient (BNVA) | payer MEDICARE, MEDICAID, SELFPAY | PROVIDERS: PCP Nurse Practitioner Family; Visit Provider Internal Medicine Cardiovascular Disease | DX: N28.9 Disorder of kidney and ureter, unspecified (principal); I48.91 Unspecified atrial fibrillation | CPT/HCPCS: 82565; 84520 ==

== ENCOUNTER 2022-09-14 02:25 | Inpatient (IN) | payer MEDICARE, MEDICAID, SELFPAY ==
[2022-09-14] VITALS (160 sets, daily range): BP systolic 81–122; BP diastolic 38–96; PULSE 75–155; RESP 9–35; TEMP 36.4–37.6; O2SAT 76–100; BMI 29.6
--- NOTE | 2022-09-14 02:29 | XRR_ITS ---
PROCEDURE INFORMATION: Exam: XR Chest Exam date and time: 09/14/2022 4:06 AM Age: 76 years old Clinical indication: Fever TECHNIQUE: Imaging protocol: Radiologic exam of the chest. Views: 1 view. COMPARISON: CR XR chest 1V portable [id number] 09/12/2021 2:36 PM FINDINGS: Lungs: No consolidation. Pleural spaces: Unremarkable. No pleural effusion. No pneumothorax. Heart/Mediastinum: No cardiomegaly. Bones/joints: No acute fracture. XR/XR chest 1V portable [id number] IMPRESSION: No acute findings.
--- NOTE | 2022-09-14 02:30 | CTR_ITS ---
PROCEDURE INFORMATION: Exam: CT Abdomen And Pelvis Without Contrast Exam date and time: 09/14/2022 3:57 AM Age: 76 years old Clinical indication: Fever TECHNIQUE: Imaging protocol: Computed tomography of the abdomen and pelvis without contrast. Radiation optimization: All CT scans at this facility use at least one of these dose optimization techniques: automated exposure control; mA and/or kV adjustment per patient size (includes targeted exams where dose is matched to clinical indication); or iterative reconstruction. COMPARISON: CR XR chest 1V portable [id number] 09/12/2021 2:36 PM RADIATION DOSE METRICS: Total DLP (mGy-cm): 879.53 FINDINGS: Liver: Unremarkable. Gallbladder and bile ducts: No calcified stones. No ductal dilation. Pancreas: No ductal dilation. Spleen: No splenomegaly. Adrenal glands: Normal. No mass. Kidneys and ureters: Status post left nephrectomy. Nonobstructing right renal calculi. No hydronephrosis. Stomach and bowel: Colonic diverticulosis with thickening and stranding seen adjacent to the sigmoid colon likely representing an acute diverticulitis. No bowel obstruction. Appendix: The appendix is not identified and therefore appendicitis cannot be excluded. However, there are no right lower quadrant inflammatory changes. Intraperitoneal space: No free air. No significant fluid collection. Vasculature: No abdominal aortic aneurysm. Lymph nodes: No enlarged lymph nodes. Urinary bladder: There is a Webber catheter within the bladder. Reproductive: Unremarkable as visualized. Bones/joints: Unremarkable. No acute fracture. Soft tissues: Unremarkable. CT/CT kidney stone [id number] IMPRESSION: Colonic diverticulosis with thickening and stranding seen adjacent to the sigmoid colon likely representing an acute diverticulitis. An underlying lesion cannot be excluded. Further evaluation is suggested as clinically indicated.
--- NOTE | 2022-09-14 02:30 | ECG_ITS ---
[facility] Test Date: 2022-09-14 Pat Name: Tamika France Department: Room: Gender: Female Sheriff: : 1945 Requested By: Isela Hinds Order Number: [id number] Razia MD: Melvin Fulton M.D. Measurements Intervals [place] Rate: 148 P: 0 LA: 0 QRS: -29 QRSD: 88 T: 40 QT: 286 QTc: 449 Interpretive Statements ATRIAL FIBRILLATION WITH RAPID VENTRICULAR RESPONSE LOW QRS VOLTAGE IN PRECORDIAL LEADS [QRS DEFLECTION < 1.0 mV IN CHEST LEADS] POSSIBLE RIGHT VENTRICULAR CONDUCTION DELAY [RSR (QR) IN V1/V2] POSSIBLE ANTERIOR MYOCARDIAL INFARCTION , PROBABLY OLD [30 ms Q WAVE IN V3/V4, OR R < 0.2 mV IN V4] ABNORMAL RHYTHM ECG INTERPRETATION BASED ON A DEFAULT AGE OF 40 YEARS Compared to ECG 09/13/2021 07:40:56 Low QRS voltage now present Myocardial infarct finding now present Incomplete right bundle-branch block no longer present T-wave abnormality no longer present Electronically Signed On 09-15-2022 13:44:30 JAIL OFFICER by Melvin Fulton M.D. [id number]
[2022-09-14 02:39] LABS: Basophils % 0.3 %; Eosinophils % 0.2 %; Hematocrit 37.4 % (37.0-47.0); Hemoglobin 12.5 g/dL (11.5-15.3); Lymphocytes # 2.2 10^3/uL (0.8-4.8); Lymphocytes % 18.2 %; Mean Corpuscular HGB Conc 33.4 g/dL (30.0-36.0); Mean Corpuscular Hemoglobin 31.9 pg (28.0-34.0); Mean Corpuscular Volume 95.4 fl (81-99); Mean Platelet Volume 11.6 fL (7.4-10.4); Monocytes # 1.3 10^3/uL (0.2-0.9); Monocytes % 10.9 %; Neutrophils # 8.43 10^3/uL (1.8-7.7); Neutrophils % 70.1 %; Nucleated Red Blood Cells % 0 %; Platelet Count 247 10^3/cmm (130-400); Red Blood Count 3.92 10^6/uL (4.1-5.3); Red Cell Distribution Width 13.2 % (12.1-15.1)
--- NOTE | 2022-09-14 02:40 | W.ED.GENADLT ---
HPI - General Adult General: Chief complaint: General Medical Stated complaint: fever Time Seen by Provider: 09/14/22 02:26 Source: patient and EMS Mode of arrival: EMS Limitations: no limitations History of Present Illness: 76-year-old female here from longterm she has been having abdominal pain along with fevers patient is currently in A. fib with RVR heart rate was in the 140s she is hypotensive to with blood pressures in the 80s. Patient has some confusion she is demented at baseline. She has had no vomiting no diarrhea no worsening improving factors. Associated symptoms: Deny chest pain, dyspnea, headache(s) or rash Review of Systems Const: Reports: fever(s) and chills Eyes: Denies: blurry vision or eye discomfort ENMT: Denies: throat pain or dental pain Card: Denies: chest pain Resp: Denies: dyspnea GI: Reports: abdominal pain : Denies: dysuria Musc: Denies: neck pain or back pain Skin/Breast: Denies: rash Neuro: Denies: headache(s) Psych: Denies: depression Shabbir/Lymph: Denies: easy bruising All/Imm: Denies: urticaria PFSH ED PFSH: Medical History A-fib Aortic regurgitation Benign essential HTN Bipolar 1 disorder CHF (congestive heart failure) Chronic atrial fibrillation History of fracture of wrist Obstructive sleep apnea Recent cerebrovascular accident (CVA) Ventricular arrhythmia Surgical History History of ankle surgery Hx of tonsillectomy Postoperative state Family History Other Cancer Diabetes Psychiatric illness Denies family history of CAD (coronary artery disease) Clotting disorder Dementia Hyperlipidemia Chronic kidney disease (CKD) Suicide Anesthesia complication Bleeding disorder Family history of premature coronary artery disease Lung disease Hypertension Stroke Social History Smoking and tobacco status: never smoked Alcohol intake: never Physical Exam Const: COMMON NORMALS: negative for patient oriented x3 EXAM LIMITATIONS: altered mental status HENMT: COMMON NORMALS: normocephalic and atraumatic HEAD & SCALP: normocephalic and atraumatic Eye: COMMON NORMALS: Equal, round and reactive pupils present and EOMs intact bilaterally PUPIL: Yes Equal, round and reactive pupils present Neck/C-Spine: COMMON NORMALS: full ROM and supple Chest: COMMONS NORMALS: normal inspection of the chest and normal palpation of entire chest wall Resp: COMMON NORMALS: normal respiratory effort, No retractions, No use of accessory muscles and clear to auscultation bilaterally AUSCULTATION: clear to auscultation bilaterally Cardio: COMMON NORMALS: No murmurs present (Cardio) RATE: tachycardic RHYTHM: abnormal rhythm irregularly irregular GI: COMMON NORMALS: Normal to inspection, nondistended, normoactive bowel sounds present, Soft to palpation, non-tender and no masses PALPATION: Yes Soft to palpation Extremity: COMMON NORMALS: normal to inspection and full ROM Neuro: COMMON NORMALS: moves all extremities and no focal motor deficits; negative for patient oriented x3 Psych: COMMON NORMALS: mental status grossly normal, Normal thought process present and cooperative THOUGHT PROCESS: Normal thought process present Skin: COMMON NORMALS: no rashes or lesions noted and no wounds GENERAL SKIN EXAM: no rashes or lesions noted Procedures Central Line Placement Right IJ: Time Out Performed: Yes Patient Placed on Monitor/Pulse Ox: Yes MD Prep: mask, gown and gloves Central Line Prep: Povidone-Iodine 1% Local Anesthetic: lidocaine 1% Amount of anesthesia used (mL): 3 Ultrasound Used for Placement: Yes Central Line Lumen Inserted: triple Post Procedure: sutured in place, good blood return, all ports aspirated, flushed, capped and sterile dressing applied Post Procedure X-Ray: tip of catheter in good position Patient Tolerated Procedure: well Complications: none Course Vital Signs: Vital signs: Vital Signs Temperature 99.2 F 09/14/22 02:26 Pulse Rate 116 H 09/14/22 05:05 Respiratory Rate 19 H 09/14/22 05:05 Blood Pressure 81/59 09/14/22 05:05 Pulse Oximetry 96 09/14/22 05:05 Oxygen Delivery Me thod 09/14/22 02:26 [facility] - General Adult Medical Decision Making Patient presents with fever along with hypotension her CT shows a diverticulitis likely causing her infection patient started on IV antibiotics given IV fluids her pressure has improved slightly but she is still hypotensive patient will be started on Levophed along with a central line. Lab Data 09/14/22 02:30 09/14/22 02:30 Radiology Impressions Chest X-Ray 09/14/22 02:29 IMPRESSION: No acute findings. Abdomen/Pelvis CT 09/14/22 02:30 IMPRESSION: Colonic diverticulosis with thickening and stranding seen adjacent to the sigmoid colon likely representing an acute diverticulitis. An underlying lesion cannot be excluded. Further evaluation is suggested as clinically indicated. Laboratory Results WBC 12.0 10^3/uL (4.0-10.0) H 09/14/22 02:30 RBC 3.92 10^6/uL (4.1-5.3) L 09/14/22 02:30 Hgb 12.5 g/dL (11.5-15.3) 09/14/22 02:30 Hct 37.4 % (37.0-47.0) 09/14/22 02:30 MCV 95.4 fl (81-99) 09/14/22 02:30 MCH 31.9 pg (28.0-34.0) 09/14/22 02:30 MCHC 33.4 g/dL (30.0-36.0) 09/14/22 02:30 RDW 13.2 % (12.1-15.1) 09/14/22 02:30 Plt Count 247 10^3/cmm (130-400) 09/14/22 02:30 MPV 11.6 fL (7.4-10.4) H 09/14/22 02:30 Neut % (Auto) 70.1 % 09/14/22 02:30 Lymph % (Auto) 18.2 % 09/14/22 02:30 [place] % (Auto) 10.9 % 09/14/22 02:30 Eos % (Auto) 0.2 % 09/14/22 02:30 Baso % (Auto) 0.3 % 09/14/22 02:30 Neut # (Auto) 8.43 10^3/uL (1.8-7.7) H 09/14/22 02:30 Lymph # (Auto) 2.2 10^3/uL (0.8-4.8) 09/14/22 02:30 [place] # (Auto) 1.3 10^3/uL (0.2-0.9) H 09/14/22 02:30 Eos # (Auto) 0.0 10^3/uL (0.0-0.8) 09/14/22 02:30 Baso # (Auto) 0.0 10^3/uL (0.0-0.1) 09/14/22 02:30 Nucleated RBC % (auto) 0 % 09/14/22 02:30 Nucleated RBCs # 0.0 /100WBC 09/14/22 02:30 PT 32.90 SECONDS (12.1-14.9) H 09/14/22 03:07 INR 3.19 (0.8-1.2) H 09/14/22 03:07 Sodium 132 mmol/L (136-145) L 09/14/22 02:30 Potassium 4.1 mmol/L (3.5-5.1) 09/14/22 02:30 Chloride 100 mmol/L (98-107) 09/14/22 02:30 Carbon Dioxide 21 mmol/L (22-29) L 09/14/22 02:30 Anion Gap 15.1 (5-19) 09/14/22 02:30 BUN 24 mg/dL (8-23) H 09/14/22 02:30 Creatinine 1.3 mg/dL (0.5-0.9) H 09/14/22 02:30 GFR Calculation Not Reportable 09/14/22 02:30 Glucose 80 mg/dL (65-115) 09/14/22 02:30 Calculated Osmolality 277 mOsm/kg (285-295) L 09/14/22 02:30 Lactate 0.6 mmol/L (0.5-2.2) 09/14/22 03:07 Calcium 8.7 mg/dL (8.5-10.5) 09/14/22 02:30 Magnesium 2.1 mg/dL (1.7-2.3) 09/14/22 02:30 Total Bilirubin 0.7 mg/dL (0.15-1.2) 09/14/22 02:30 AST 13 U/L (0-32) 09/14/22 02:30 ALT 14 U/L (0-33) 09/14/22 02:30 Alkaline Phosphatase 107 U/L (35-105) H 09/14/22 02:30 Total Protein 6.6 g/dL (6.6-8.7) 09/14/22 02:30 Albumin 3.6 g/dL (3.5-5.2) 09/14/22 02:30 Globulin 3.0 g/dL (1.3-4.6) 09/14/22 02:30 Urine Color Yellow (Yellow) 09/14/22 03:31 Urine Appearance Clear (CLEAR) 09/14/22 03:31 Urine pH 8 (5-7) H 09/14/22 03:31 Ur Specific [place] 1.010 (1.005-1.030) 09/14/22 03:31 Urine Protein Neg (Negative) 09/14/22 03:31 Urine Glucose (UA) Norm (Normal) 09/14/22 03:31 Urine Ketones Negative (Negative) 09/14/22 03:31 Urine Blood 3+ (Negative) H 09/14/22 03:31 Urine Nitrate Negative (Negative) 09/14/22 03:31 Urine Bilirubin Neg (Negative) 09/14/22 03:31 Prot Sulfosalicylic Acd Negative (Negative) 09/14/22 03:31 Urine Urobilinogen Neg mg/dL (Negative) 09/14/22 03:31 Ur Leukocyte Esterase Negative (Negative) 09/14/22 03:31 Urine RBC 40-50 /hpf (0-2) H 09/14/22 03:31 Urine WBC 5-10 /hpf (0-5) H 09/14/22 03:31 Ur Squamous Epith Cells 0-4 /hpf (0-5) H 09/14/22 03:31 Amorphous Sediment Not Reportable 09/14/22 03:31 Urine Bacteria Trace /hpf (NONE) 09/14/22 03:31 Influenza Type A Ag negative (Negative) 09/14/22 03:06 Influenza Type B Ag negative (Negative) 09/14/22 03:06 SARS-CoV-2 Ag (Rapid) negative (Negative) 09/14/22 03:54 EKG Data EKG 1: I personally reviewed and interpreted this EKG as follows: EKG interpretation date: 09/14/22 EKG interpretation time: 02:31 Interpretation: afib with rvr hr [address] or t wave abnormalities qrs 88 qtc 371 Computer generated interpretation: Chest X-Ray 09/14/22 02:29 IMPRESSION: No acute findings. Abdomen/Pelvis CT 09/14/22 02:30 IMPRESSION: Colonic diverticulosis with thickening and stranding seen adjacent to the sigmoid colon likely representing an acute diverticulitis. An underlying lesion cannot be excluded. Further evaluation is suggested as clinically indicated. Critical Care Time Critical Care Time: Critical Care Time: Yes Total Critical Care Time: 40 Attestation: The high probability of a clinically significant, sudden or life threatening deterioration of the patient's gi system(s) required my full and direct attention, intervention and personal management. The critical care time is as shown. This time is in addition to time spent performing any reported procedures but includes the following: [x] Data and vital sign review and interpretation [x] Patient assessment, examination and intervention [x] Documentation [x] Medication orders and management Discharge Plan Discharge Patient Disposition: Admitted As Inpatient Admit Provider: Mary Desai Clinical Impression: Chronic atrial fibrillation, Diverticulitis, Sepsis Condition: Stable Coding Level of Care Code ED Miter Sawyer for Ambrosio Jones
[2022-09-14 03:02] LABS: Alanine Aminotransferase 14 U/L (0-33); Albumin Level 3.6 g/dL (3.5-5.2); Alkaline Phosphatase 107 U/L (35-105); Anion Gap 15.1 (5-19); Aspartate Amino Transferase 13 U/L (0-32); Blood Urea Nitrogen 24 mg/dL (8-23); Calcium 8.7 mg/dL (8.5-10.5); Carbon Dioxide 21 mmol/L (22-29); Chloride 100 mmol/L (98-107); Glucose 80 mg/dL (65-115); Magnesium 2.1 mg/dL (1.7-2.3); Osmolality Calculated 277 mOsm/kg (285-295); Potassium 4.1 mmol/L (3.5-5.1); Sodium 132 mmol/L (136-145); Total Bilirubin 0.7 mg/dL (0.15-1.2); Total Protein 6.6 g/dL (6.6-8.7)
[2022-09-14] MEDS: sodium chloride 0.9% 1,000 ML 999 ML IV ×2 (03:09→03:42)
[2022-09-14] MEDS: acetaminophen 325 mg Tablet 650 MG PO (03:09)
[2022-09-14 03:25] LABS: INR 3.19 (0.8-1.2)
[2022-09-14 03:30] LABS: Lactate (Lactic Acid level) 0.6 mmol/L (0.5-2.2)
[2022-09-14 03:52] LABS: Influenza A by IFA negative (Negative); Influenza B by IFA negative (Negative)
[2022-09-14] MEDS: piperacillin-tazobactam 3.375 GM in sodium chloride 0.9% (plus) 50 ML IV ×3 (04:14→20:29)
[2022-09-14] MEDS: sodium chloride 0.9% 500 ML 999 ML IV ×2 (04:14→10:53)
[2022-09-14] MEDS: vancomycin 1,000 MG in sodium chloride 0.9% 250 ML 250 MG IV (04:27)
[2022-09-14 04:56] LABS: SARS Covid-2 Antigen negative (Negative)
[2022-09-14 05:00] LABS: Urine Appearance Clear (CLEAR); Urine Color Yellow (Yellow); pH Urine 8 (5-7)
[2022-09-14 05:01] LABS: Add Urine Microscopic? YES; Bilirubin Urine Neg (Negative); Blood Urine 3+ (Negative); Glucose Urine UA Norm (Normal); Ketones Urine Negative (Negative); Leukocyte Esterase Urine Negative (Negative); Nitrate Urine Negative (Negative); Protein Urine Neg (Negative); Sulfosalicylic Acid Urine Negative (Negative); Urobilinogen Urine Neg (Negative)
[2022-09-14 05:02] LABS: RBC Urine 40-50 /hpf (0-2)
[2022-09-14 05:03] LABS: Add Urine Culture? Yes; Bacteria Urine TRACE /hpf; Squamous Epithelial Cell Urine 0-4 /hpf (0-5)
--- NOTE | 2022-09-14 05:20 | XRR_ITS ---
PROCEDURE INFORMATION: Exam: XR Chest Exam date and time: 09/14/2022 6:44 AM Age: 76 years old Clinical indication: Device placement; Other: Central line; Additional info: Central line placement TECHNIQUE: Imaging protocol: Radiologic exam of the chest. Views: 1 view. COMPARISON: CR (CHEST, ) 09/14/2022 4:06 AM FINDINGS: Tubes, catheters and devices: Right central line tip projects over the right atrium. Lungs: No consolidation. Pleural spaces: Unremarkable. No pleural effusion. No pneumothorax. Heart/Mediastinum: Cardiomegaly. Bones/joints: No acute fracture. XR/XR chest 1V portable 01000 IMPRESSION: Right central line tip projects over the right atrial/SVC junction.
--- NOTE | 2022-09-14 07:37 | PM.HP ---
Providers/Chief Complaint Admitting Physician: Mary Desai MD Primary Care Provider: Mavis Jacinto Chief Complaint: fever History of Present Illness Tamika France is a 76 year old female past medical history of atrial fibrillation, hypertension, bipolar 1 disorder, congestive heart failure, obstructive sleep apnea, recent stroke, nephrectomy on September 05 at [facility]. Patient does have a history of dementia but was alert and oriented [facility] the [facility] able to make her needs known. She is unable to provide a history.. She is alert and somewhat confused at this time. Able to answer only some questions. Not lethargic or obtunded. Initially when she came to the ER she was complaining of abdominal pain and had a fever. She was also in A. fib with RVR with a rate of 140. She was hypotensive with blood pressure in the 80s. She denied vomiting diarrhea, chest pain, dyspnea, headache, rash, chills. Patient is an extremely poor historian. ED course: Blood pressure 81/59, respirate 19, pulse 116, temp 99.2. CT abdomen pelvis done showed diverticulitis. She was given a dose of Vanco and Zosyn. Central line placed by ER and Levophed started. Patient will be transferred to ICU. Patient has surgical scars on her abdomen with surgical glue. When asked she said she had a nephrectomy done because someone told her she had renal cancer. This was done at [facility]. Patient states it was done on September 05 this year. She is unable to provide any other details regarding this or provide any other information at this time. Medications/Allergies Home Medications Medication Instructions Recorded Confirmed Last Taken Type rivaroxaban 20 mg tablet (Xarelto) 20 mg PO QPM 02/14/20 07/02/22 02/27/20 History topiramate 100 mg tablet 100 mg PO BID 02/14/20 07/02/22 02/27/20 History venlafaxine 150 mg 150 mg PO QAM 02/14/20 07/02/22 02/27/20 History capsule,extended release 24 hr calcium carbonate 250 mg-vitamin 1 tab PO QAM 11/22/20 07/02/22 Unknown History D3 3.125 mcg (125 unit) tablet (Oyster Shell Calcium-Vitamin D3) diclofenac sodium 1 % topical gel 2 g topical QID PRN Pain 11/22/20 07/02/22 Unknown History sennosides 8.6 mg-docusate sodium 1 tab-cap PO DAILY PRN Constipation 11/22/20 07/02/22 Unknown History 50 mg tablet risperidone 2 mg tablet 2 mg PO BEDTIME 09/13/21 07/02/22 Unknown History potassium chloride 10 mEq 10 meq PO QAM #90 tabs 09/19/21 07/02/22 Unknown Rx tablet,extended release(part/cryst) amlodipine 5 mg tablet 5 mg PO DAILY 07/02/22 07/02/22 Unknown History atorvastatin 40 mg tablet 40 mg PO DAILY 07/02/22 07/02/22 Unknown History cephalexin 250 mg capsule 250 mg PO DAILY 07/02/22 07/02/22 Unknown History diltiazem HCl 120 mg 120 mg PO DAILY 07/02/22 07/02/22 Unknown History capsule,extended release 24 hr furosemide 40 mg tablet 40 mg PO QAM ext med history shows 07/02/22 07/02/22 Unknown History last filled 02/07/21 90d/s enoxaparin 80 mg/0.8 mL 80 mg (0.8 mL) SUBCUT Q12H #4 mL 08/21/22 Unknown Rx subcutaneous syringe (Lovenox) Allergies Allergy/AdvReac Type Severity Reaction Status Date / Time Sulfa (Sulfonamide Allergy Unknown Verified 07/02/22 08:21 Antibiotics) PFSH Acute PFSH: Medical History A-fib Aortic regurgitation Benign essential HTN Bipolar 1 disorder CHF (congestive heart failure) Chronic atrial fibrillation History of fracture of wrist Obstructive sleep apnea Recent cerebrovascular accident (CVA) Ventricular arrhythmia Surgical History History of ankle surgery Hx of tonsillectomy Postoperative state Family History Other Cancer Diabetes Psychiatric illness Denies family history of CAD (coronary artery disease) Clotting disorder Dementia Hyperlipidemia Chronic kidney disease (CKD) Suicide Anesthesia complication Bleeding disorder Family history of premature coronary artery disease Lung disease Hypertension Stroke Social History Smoking and tobacco status: never smoked Alcohol intake: never Vitals/I&O/Wt Last Vital Signs Temp 99.2 F 09/14/22 02:26 Pulse 116 H 09/14/22 07:30 Resp 19 H 09/14/22 07:30 BP 107/80 09/14/22 07:30 Pulse Ox 96 09/14/22 07:30 O2 Del Method 09/14/22 07:15 09/13/22 09/14/22 09/14/22 22:59 06:59 14:59 Intake Total 2800 / 2800 Balance 2800 / 2800 Weight last 48 hrs Weight 80.739 kg Physical Exam Narrative: General: Alert but not oriented to time place or person. Unable to assess any of that as patient is not wanting to talk. She speaks a few words every few minutes. HEENT: Normocephalic, atraumatic, EOMI, breathing normally on room air. Cardio: Regular rate rhythm, normal S1-S2, Respiratory: Clear to auscultation bilaterally no wheezes no rhonchi. Patient would not move forward for me to auscultate her back at this time. GI: Abdomen soft, mildly tender in right and left lower quadrants, nondistended, bowel sounds + Extremities: No lower extremity edema bilaterally. Urinary Catheter Management: Webber: Cath Placed During This Visit: yes Urinary Catheter Date of Insertion: 09/14/22 Data 09/14/22 02:30 09/14/22 02:30 Micro: Microbiology 09/14/22 03:16 Blood Culture - Preliminary Blood SPECIMEN COLLECTED 09/14/22 03:07 Blood Culture - Preliminary Blood SPECIMEN COLLECTED A&P Assessment and plan (1) Chronic atrial fibrillation: (2) Diverticulitis: (3) Sepsis: (4) Generalized weakness: (5) Atrial fibrillation with RVR: (6) CVA, old, hemiparesis: (7) Recent cerebrovascular accident (CVA): (8) Ventricular arrhythmia: (9) Aortic regurgitation: Qualifiers: Cardiac valve disease etiology: nonrheumatic Qualified Code(s): I35.1 - Nonrheumatic aortic (valve) insufficiency (10) Obstructive sleep apnea: (11) Benign essential HTN: (12) Chronic atrial fibrillation: (13) Postoperative state: Plan #Sepsis secondary to diverticulitis #Hematuria #Recent nephrectomy #Dementia #Atrial fibrillation with RVR #Chronic congestive heart failure #Obstructive sleep apnea #History of CVA #History of aoctic regurgitation ? CT abdomen pelvis showed: Colonic diverticulosis with thickening and stranding seen adjacent to the sigmoid colon likely representing an acute diverticulitis. An underlying lesion cannot be excluded. Further evaluation is suggested as clinically indicated. -Continue Levophed. Patient did receive 3 L normal saline bolus in ER. Was not fluid responsive. Levophed started ? Continue Vanco and Zosyn at this time ? Check blood cultures, urine culture ? Hold amlodipine, Cardizem at this time. ? We will need to verify patient's home medications as she is on Xarelto and subcu Lovenox. Lasix also listed. ? Request records from [facility] regarding renal cell carcinoma, nephrectomy?? ? Primary team to call family to obtain collateral information. ? Admit to ICU ? Serial abdominal exams ? UA positive for microscopic hematuria. At penitentiary however there was gross blood present in urine ? Consider urological consultation after obtaining records from [place] ? Check echocardiogram Full code DVT prophylaxis: I will hold off for now due to hematuria Attestations Medical Necessity Statement*: Greater than 2 midnight stay. Will require ICU level care. Patient on vasopressors. Critical Care Time: The high probability of a clinically significant, sudden or life threatening deterioration of the patient's [neurological, cardiovascular, gastrointestinal] system(s) required my full and direct attention, intervention and personal management. The critical care time is as shown. This time is in addition to time spent performing any reported procedures but includes the following: [x] Data and vital sign review and interpretation [x] Patient assessment, examination and intervention [x] Documentation [x] Medication orders and management Critical Care Time (min): 65 Coding Level of Care Code Acute Rolled Glass Crosscutter for Chg Fwd Diagnoses Chronic atrial fibrillation I48.20 Diverticulitis K57.92 Sepsis A41.9 Generalized weakness R53.1 Atrial fibrillation with RVR I48.91 CVA, old, hemiparesis I69.359 Recent cerebrovascular accident (CVA) Z86.73 Ventricular arrhythmia I49.9 Aortic regurgitation I35.1 Cardiac valve disease etiology: nonrheumatic Obstructive sleep apnea G47.33 Benign essential HTN I10 Chronic atrial fibrillation I48.20 Postoperative state Z98.890
[2022-09-14] MEDS: heparin 5,000 unit/mL INJ 1 mL 5000 UNIT SUBCUT (08:12)
[2022-09-14] MEDS: sodium chloride 0.9% 1,000 ML 75 ML IV (08:12)
[2022-09-14 08:33] LABS: Procalcitonin 0.09 ng/mL (0-0.5)
[2022-09-14] MEDS: pantoprazole 40 mg SDV IVP (10:56)
[2022-09-14] MEDS: enoxaparin 80 mg/0.8 mL Syringe SUBCUT ×2 (10:57→21:52)
[2022-09-14 11:26] LABS: Anion Gap 11.7 (5-19); Blood Urea Nitrogen 22 mg/dL (8-23); Calcium 7.8 mg/dL (8.5-10.5); Carbon Dioxide 22 mmol/L (22-29); Chloride 105 mmol/L (98-107); Glucose 99 mg/dL (65-115); Osmolality Calculated 283 mOsm/kg (285-295); Potassium 3.7 mmol/L (3.5-5.1); Sodium 135 mmol/L (136-145); Thyroid Stimulating Hormone 2.45 uIU/mL (0.27-4.20); Vitamin B12 339 pg/mL (232-1245)
[2022-09-14 11:27] LABS: Folate Level 7.4 ng/mL (4.8-37.3)
[2022-09-14 12:17] LABS: Iron 12 ug/dL (37-145); Percent Saturation 6.1 % (20-50); Total Iron Binding Capacity 196 mcg/dl; Unsaturated Iron Binding 184 ug/dL (112-347)
[2022-09-14 12:23] LABS: Procalcitonin 0.16 ng/mL (0-0.5)
[2022-09-14 15:16] LABS: Potassium, Radom Urine 72 mmol/L; Urine Random Sodium 33 mmol/L
[2022-09-14 15:24] LABS: Urine Random Chloride 19 mmol/L
--- NOTE | 2022-09-14 15:48 | PM.MISC ---
Miscellaneous Note Purpose of Documentation: Cross coverage note. Note: Patient seen in ICU today. On examination patient is lethargic but wakes up and on waking up is awake and alert to self, knows she is in the hospital but thinks this is [facility]. She is not really clear why she is in the hospital. On examination patient is off Levophed. Heart rate is running in 130s. On room air. Appears comfortable. Webber in place with around 1200 cc of urine output since admission. On exam: Patient is lethargic, awake on waking up oriented 1-2. Normal vesicular breath sounds bilaterally, on room air. S1-S2 irregularly irregular, tachycardia. Abdomen seems soft, nontender, bowel sounds are active. Neurologically decreased power on left side consistent with old CVA. Plan: Start on amiodarone drip after 150 mg of push. Continue with vancomycin and Zosyn. Check MRSA swab, stool studies. Follow-up blood cultures and urine culture. Patient takes Xarelto at home. Switch to Lovenox 80 mg every 12 hourly. Restart home dose of risperidone, topiramate. Check topiramate level. Hold off on Effexor for now. Continue with normal saline at 75 cc/h. Give 500 cc of fluid bolus. Strict input and output charting. Will change fluid rate as per urine output. Recheck BMP and magnesium in afternoon. Check iron panel, vitamin B12, folate, procalcitonin, TSH. Restart soft mechanical diet as per her regular diet at alf. Try to get documents from [facility] regarding need for nephrectomy. Patient's care discussed in detail with her niece Ms. Tran Aviles on [phone]. As per Ms. Beatty she is the only living relative to Ms. France. Ms. France does not have any DPOA paperwork but Jannette is agreeable to make decisions going forward when patient is not able to make the decision herself. As per Ms. Beatty patient would not want any kind of chest compressions and life-prolonging efforts if it comes to it. CODE STATUS entered into system as DNR/DNI. The high probability of a clinically significant, sudden or life threatening deterioration of the patient's [cardiac, renal] system(s) required my full and direct attention, intervention and personal management. The critical care time is as shown. This time is in addition to time spent performing any reported procedures but includes the following: [x] Data and vital sign review and interpretation [x] Patient assessment, examination and intervention [x] Documentation [x] Medication orders and management 60 minutes
[2022-09-14] MEDS: cyanocobalamin 1,000 mcg/mL SDV 1000 MCG IM (16:29)
[2022-09-14] MEDS: ferrous gluconate 324 mg Tablet PO (17:58)
[2022-09-14] MEDS: topiramate 100 mg Tablet PO (17:58)
[2022-09-14] MEDS: sodium chloride 0.9% 1,000 ML 100 ML IV (20:28)
[2022-09-14] MEDS: risperiDONE 2 mg Tablet PO (21:52)
[2022-09-15] VITALS (59 sets, daily range): BP systolic 78–133; BP diastolic 59–94; PULSE 73–134; RESP 3–26; TEMP 36.9–38.1; O2SAT 78–100
[2022-09-15] MEDS: acetaminophen 325 mg Tablet 650 MG PO (01:23)
[2022-09-15] MEDS: piperacillin-tazobactam 3.375 GM in sodium chloride 0.9% (plus) 50 ML IV ×3 (03:47→20:30)
[2022-09-15] MEDS: vancomycin 1,000 MG in sodium chloride 0.9% 250 ML 250 MG IV (03:52)
[2022-09-15 03:53] LABS: Basophils % 0.3 %; Eosinophils % 0.3 %; Hematocrit 32.7 % (37.0-47.0); Lymphocytes # 1.7 10^3/uL (0.8-4.8); Lymphocytes % 14.9 %; Mean Corpuscular HGB Conc 30.6 g/dL (30.0-36.0); Mean Corpuscular Hemoglobin 31.1 pg (28.0-34.0); Mean Corpuscular Volume 101.6 fl (81-99); Mean Platelet Volume 12.1 fL (7.4-10.4); Monocytes % 8.9 %; Neutrophils # 8.66 10^3/uL (1.8-7.7); Neutrophils % 75.1 %; Nucleated Red Blood Cells % 0 %; Platelet Count 191 10^3/cmm (130-400); Red Blood Count 3.22 10^6/uL (4.1-5.3); Red Cell Distribution Width 13.3 % (12.1-15.1); White Blood Count 11.6 10^3/uL (4.0-10.0)
[2022-09-15 04:17] LABS: Estmated Average Glucose 91; Hemoglobin A1C 4.8 % (4.0-6.0)
[2022-09-15 04:32] LABS: Alanine Aminotransferase 11 U/L (0-33); Albumin Level 2.9 g/dL (3.5-5.2); Alkaline Phosphatase 85 U/L (35-105); Anion Gap 12.9 (5-19); Aspartate Amino Transferase 13 U/L (0-32); Blood Urea Nitrogen 22 mg/dL (8-23); Calcium 7.9 mg/dL (8.5-10.5); Carbon Dioxide 19 mmol/L (22-29); Chloride 112 mmol/L (98-107); Chol HDL Ratio 2.02 mg/dL (0.0-4.40); Cholesterol 87 mg/dL (0-200); Globulin 2.6 g/dL (1.3-4.6); Glucose 87 mg/dL (65-115); HDL Cholesterol 43 mg/dL (60-100); LDL Cholesterol Calculated 36 mg/dL (50-129); Osmolality Calculated 293 mOsm/kg (285-295); Potassium 3.9 mmol/L (3.5-5.1); Sodium 140 mmol/L (136-145); Total Bilirubin 0.5 mg/dL (0.15-1.2); Total Protein 5.5 g/dL (6.6-8.7); Triglycerides 39 mg/dL (0-150); VLDL Cholestrol Calculation 8 mg/dL (0-30)
[2022-09-15] MEDS: sodium chloride 0.9% 1,000 ML 100 ML IV (06:25)
[2022-09-15] MEDS: pantoprazole 40 mg SDV IVP (09:56)
[2022-09-15] MEDS: cyanocobalamin 1,000 mcg Tablet 500 MCG PO (09:56)
[2022-09-15] MEDS: enoxaparin 80 mg/0.8 mL Syringe SUBCUT ×2 (09:56→21:25)
[2022-09-15] MEDS: topiramate 100 mg Tablet PO ×2 (09:56→18:24)
[2022-09-15] MEDS: ferrous gluconate 324 mg Tablet PO ×2 (09:56→18:24)
[2022-09-15] MEDS: amiodarone 200 mg Tablet PO ×2 (09:56→18:24)
[2022-09-15] MEDS: dextrose 5%-sod chloride 0.9% 1,000 ML 100 ML IV ×2 (09:57→18:24)
[2022-09-15] MEDS: sodium chloride 0.9% 500 ML 999 ML IV (09:57)
--- NOTE | 2022-09-15 09:58 | PC.CHAP ---
Pastoral Care Encounter/Spiritual Assessment Type of Contact [] Declined oxygen equipment aide visit [] Patient/Family/Request visit [] Outpatient visit [] Follow-up visit [] Physician referral [] Code/Alert [x] Routine visit [] Staff referral [] Actively dying [x] Patient sleeping [] Family support [] [] Out of room [] Palliative care [] [] Receiving care in room [] Pre-surgical visit [] Trauma [] Long length of stay [x] ICU visit [] Other: Relational/Emotional Strength [] Patient feels connected with others/family/visitors/staff [] Distress [] Loneliness/isolation [] Abandonment Spirituality of Patient [] Person of Lien [] Attends Yarsani of their Lien [] Believes in Prayer [] Reads Bible or Alevism materials [] There are Spiritual issues to be addressed Bull Fiddle Player Interventions [x] Prayer [] Active listening [] Non-anxious presence [] Spiritual/emotional support [] Crisis/trauma care [] Spiritual counseling [] Bereavement support [] Provided bereavement packet [] Provided Bible/devotional materials [] Provided toy/stuffed animal, coloring book to patient or family member [] Provided Communion [] Anointing/[facility] [] Salvation [x] Completed spiritual assessment [] Other: Impact on Illness or Injury [] Angry [] Fearful [] Anxious [] Often cries [] Exhaustion [] Unable to work [] Unable to attend gnosticism [] Unable to walk/stand [] Unable to read [] Unable to drive [] Unable to eat/drink [] Unable to sleep [] Unable to be with family [] Patient intubated [] Other: Summary Time spent with patient
--- NOTE | 2022-09-15 09:59 | PC.CHAP ---
Pastoral Care Encounter/Spiritual Assessment Type of Contact [] Declined websphere portal architect visit [] Patient/Family/Request visit [] Outpatient visit [] Follow-up visit [] Physician referral [] Code/Alert [] Routine visit [] Staff referral [] Actively dying [] Patient sleeping [] Family support [] [] Out of room [] Palliative care [] [] Receiving care in room [] Pre-surgical visit [] Trauma [] Long length of stay [] ICU visit [] Other: Relational/Emotional Strength [] Patient feels connected with others/family/visitors/staff [] Distress [] Loneliness/isolation [] Abandonment Spirituality of Patient [] Person of Lien [] Attends Roman Catholic of their Lien [] Believes in Prayer [] Reads Bible or Restorationism materials [] There are Spiritual issues to be addressed Structural Steel Fitter Interventions [] Prayer [] Active listening [] Non-anxious presence [] Spiritual/emotional support [] Crisis/trauma care [] Spiritual counseling [] Bereavement support [] Provided bereavement packet [] Provided Bible/devotional materials [] Provided toy/stuffed animal, coloring book to patient or family member [] Provided Communion [] Anointing/[place] [] Salvation [] Completed spiritual assessment [] Other: Impact on Illness or Injury [] Angry [] Fearful [] Anxious [] Often cries [] Exhaustion [] Unable to work [] Unable to attend mu-ism [] Unable to walk/stand [] Unable to read [] Unable to drive [] Unable to eat/drink [] Unable to sleep [] Unable to be with family [] Patient intubated [] Other: Summary Time spent with patient
--- NOTE | 2022-09-15 10:00 | XRR_ITS ---
PROCEDURE INFORMATION: Exam: XR Abdomen Exam date and time: 09/15/2022 3:22 PM Age: 76 years old Clinical indication: Constipation; Prior surgery; Surgery type: Nephectomy may 2022; Patient HX: Sepsis, diverticulitis, weakness TECHNIQUE: Imaging protocol: Radiologic exam of the abdomen. Views: 2 Views. Upright and supine views. COMPARISON: CT kidney stone [id number] 09/14/2022 3:57 AM FINDINGS: Tubes, catheters and devices: There is a right IJ catheter whose tip is in the superior vena cava. Gastrointestinal tract: Normal. No bowel dilation. Intraperitoneal space: Normal. No free air. Bones/joints: Unremarkable for age. XR/XR acute abdomen series [id number] IMPRESSION: There are no acute concerning abnormalities.
--- NOTE | 2022-09-15 14:17 | P.PN_ITS ---
Subjective Subjective: No acute events overnight. Patient Miniter pressure have been maintained over 65. Heart rate has been occasionally creeping up to around 120s to 130s beats per minute. Documented urine output of about 2900 cc last 24 hours. On examination is laying comfortably in bed and sleeping but wakes up to verbal stimulus. On waking up patient is alert and oriented to self, being in the hospital, complaints. Denies any nausea, vomiting, headache. Does complain of abdominal pain. Vitals/I&O/Wt Last Vital Signs Temp 98.5 F 09/15/22 06:00 Pulse 100 09/15/22 14:00 Resp 17 09/15/22 14:00 BP 113/78 09/15/22 14:00 Pulse Ox 97 09/15/22 14:00 O2 Del Method 09/15/22 12:00 09/14/22 09/15/22 09/15/22 22:59 06:59 14:59 Intake Total 1656.029 / 2364.693 1295 / 3659.693 1861.971 / 1861.971 Output Total 1800 / 1800 1100 / 2900 Balance -143.971 / 564.693 195 / 495.186 4003.971 / 1861.971 Weight last 48 hrs Weight 90.764 kg Weight 80.739 kg Physical Exam Narrative: General: AAO x2-3 HEENT: Normocephalic, atraumatic, EOMI, breathing normally on room air. Cardio: S1-S2 irregularly irregular Respiratory: Clear to auscultation bilaterally no wheezes no rhonchi. Patient would not move forward for me to auscultate her back at this time. GI: Abdomen soft, mildly tender in right and left lower quadrants, nondistended, bowel sounds + Extremities: No lower extremity edema bilaterally. Urinary Catheter Management: Webber: Cath Placed During This Visit: yes Reason for Continuing Indwelling Catheter: Accurate Measurement of Urinary Output in Critically Ill Patients Urinary Catheter Date of Insertion: 09/14/22 Data 09/15/22 02:36 09/15/22 02:36 Micro: Microbiology 09/14/22 13:55 MRSA Culture - Final Nose 09/14/22 03:31 Urine Culture - Preliminary Urine,Clean Catch Gram Negative Rods 09/14/22 03:16 Blood Culture - Preliminary Blood NEGATIVE TO DATE 09/14/22 03:07 Blood Culture - Preliminary Blood NEGATIVE TO DATE 09/14/22 13:55 Bacterial Antigens - Final Urine Kidney A&P Assessment and plan (1) Sepsis: Present on admission. Secondary to diverticulitis. Leading to atrial fibrillation along with altered mental status from acute encephalopathy on admission. Resolving now. (2) Chronic atrial fibrillation: RestartStop amiodarone drip. Switch to amiodarone 200 mg oral twice daily. Oral Cardizem 30 mg every 6 hourly. Monitor blood pressures. Continue with full dose Lovenox 1 mg/kg body weight daily hourly. Takes Xarelto at home. (3) Diverticulitis: Continue with Zosyn. Follow-up blood cultures. MRSA negative. Holding off on vancomycin. Stool studies still awaited. Abdominal series to be done today. On review of CT scan appendicitis was not excluded as appendix could not be identified. Will do right lower quadrant ultrasound (4) Generalized weakness: Likely secondary to sepsis. Physical therapy evaluation and management. (5) CVA, old, hemiparesis: (6) Ventricular arrhythmia: (7) Aortic regurgitation: Qualifiers: Cardiac valve disease etiology: nonrheumatic Qualified Code(s): I35.1 - Nonrheumatic aortic (valve) insufficiency (8) Obstructive sleep apnea: (9) Benign essential HTN: Goal blood pressure less than 140/90 mmHg. Weight goals of mean over 65. (10) Postoperative state: Plan Analgesia: Tylenol as needed Glycemic control: Not needed. A1c 4.8 Nutrition: Mechanical soft diet CODE STATUS: Discussed in detail with patient's niece who is the DPOA over the phone Ms. Mayfield. DNR/DNI PUD prophylaxis: Famotidine DVT prophylaxis: Full dose Lovenox. Discharge planning: Plan to discharge back to residential once medically stable. PT evaluation. Transfer to [facility] This documentation was created by [employer] registered pharmacist software. Every effort was made to ensure accuracy of registered pharmacist. Any obvious errors or omissions should be clarified with the author of the document. 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
--- NOTE | 2022-09-15 14:31 | US_ITS ---
WS: [id number] Limited abdomen ultrasound. HISTORY: Appendicitis versus constipation. RIGHT lower quadrant pain. Ultrasound is directed to the RIGHT lower quadrant in the area of pain. LEFT lower quadrant also imag ed. There is a very large amount of bowel gas and shadowing from GI tract content. No inflammatory ma ss or fluid is identified. The appendix is not identified. US/US abdomen limited [id number] IMPRESSION: 1. Appendix is not identified. 2. No inflammatory masses in the lower quadrants. 3. Increased fecal content in the GI tract.
[2022-09-15] MEDS: dilTIAZem 30 mg Tablet PO ×2 (16:02→20:30)
--- NOTE | 2022-09-15 20:12 | PC.NURSE ---
PT HAS HAD A FAIRLY UNEVENTFUL SHIFT. PT HAS BEEN MORE ALERT AND RESPONSIVE. AMIO DRIP TURNED OFF THIS MORNING PER PROTOCOL. PT SWITCHED TO PO AMIO. PT TOLERATING THIS WELL. HEART RATE IS BETTER CONTROLLED. PT WORKED A LITTLE BIT WITH PHYSICAL THERAPY TODAY. PT DID REFUSE TO GET UP AND TO A CHAIR. PT HAS NOT HAD ANY COMPLAINTS OF PAIN. PT DOES REQUIRE SOMEONE TO FEED HER. SHE TOLERATES HER MEALS WELL THOUGH. PT WILL BE TRANSFERRED TO [facility]. REPORT GIVEN TO ICU LAMINATOR PREFORMS NURSE. CARE IS BEING TURNED OVER TO SAID NURSE.
[2022-09-15] MEDS: risperiDONE 1 mg Tablet PO (21:25)
[2022-09-16] VITALS (42 sets, daily range): BP systolic 88–131; BP diastolic 62–92; PULSE 81–125; RESP 0–24; TEMP 36.3–36.9; O2SAT 79–99
[2022-09-16] MEDS: dilTIAZem 30 mg Tablet PO ×4 (02:18→21:16)
[2022-09-16 03:20] LABS: Basophils % 0.5 %; Eosinophils # 0.2 10^3/uL (0.0-0.8); Hematocrit 32.3 % (37.0-47.0); Hemoglobin 9.7 g/dL (11.5-15.3); Lymphocytes # 1.5 10^3/uL (0.8-4.8); Lymphocytes % 19.1 %; Mean Corpuscular Hemoglobin 31.1 pg (28.0-34.0); Mean Corpuscular Volume 103.5 fl (81-99); Mean Platelet Volume 10.8 fL (7.4-10.4); Monocytes # 0.7 10^3/uL (0.2-0.9); Monocytes % 8.2 %; Neutrophils # 5.52 10^3/uL (1.8-7.7); Neutrophils % 69.9 %; Nucleated Red Blood Cells % 0 %; Platelet Count 177 10^3/cmm (130-400); Red Blood Count 3.12 10^6/uL (4.1-5.3); Red Cell Distribution Width 13.4 % (12.1-15.1); White Blood Count 7.9 10^3/uL (4.0-10.0)
[2022-09-16 03:44] LABS: Alanine Aminotransferase 13 U/L (0-33); Albumin Level 2.7 g/dL (3.5-5.2); Alkaline Phosphatase 78 U/L (35-105); Anion Gap 10.8 (5-19); Aspartate Amino Transferase 15 U/L (0-32); Blood Urea Nitrogen 17 mg/dL (8-23); Calcium 7.9 mg/dL (8.5-10.5); Carbon Dioxide 18 mmol/L (22-29); Chloride 117 mmol/L (98-107); Globulin 2.6 g/dL (1.3-4.6); Glucose 111 mg/dL (65-115); Osmolality Calculated 296 mOsm/kg (285-295); Potassium 3.8 mmol/L (3.5-5.1); Sodium 142 mmol/L (136-145); Total Bilirubin 0.3 mg/dL (0.15-1.2); Total Protein 5.3 g/dL (6.6-8.7)
[2022-09-16 04:00] LABS: Vancomycin Trough 10.1 ug/mL (10-15)
[2022-09-16] MEDS: dextrose 5%-sod chloride 0.9% 1,000 ML 100 ML IV (04:50)
[2022-09-16] MEDS: vancomycin 1,000 MG in sodium chloride 0.9% 250 ML 250 MG IV (04:51)
[2022-09-16] MEDS: piperacillin-tazobactam 3.375 GM in sodium chloride 0.9% (plus) 50 ML IV ×3 (05:56→21:17)
[2022-09-16] MEDS: cyanocobalamin 1,000 mcg Tablet 500 MCG PO (09:39)
[2022-09-16] MEDS: topiramate 100 mg Tablet PO ×2 (09:39→18:40)
[2022-09-16] MEDS: amiodarone 200 mg Tablet PO ×2 (09:39→18:40)
[2022-09-16] MEDS: ferrous gluconate 324 mg Tablet PO ×2 (09:40→18:40)
[2022-09-16] MEDS: atorvastatin 40 mg Tablet PO (09:40)
[2022-09-16] MEDS: pantoprazole 40 mg SDV IVP (09:40)
[2022-09-16] MEDS: enoxaparin 100 mg/mL Syringe 90 MG SUBCUT ×2 (10:26→21:20)
--- NOTE | 2022-09-16 13:31 | PM.PN ---
Subjective Subjective: No acute events overnight. Today morning seen multiple times daily. Seen sitting up in chair. As per the nurse patient has been sitting up in chair for couple hours. Patient denies any new complaints. States abdominal pain is better. Patient is more awake and alert, cheerful and able to complete conversation. Patient's caregiver at bedside. Vitals/I&O/Wt Last Vital Signs Temp 98.4 F 09/16/22 04:00 Pulse 81 09/16/22 08:09 Resp 11 L 09/16/22 08:09 BP 101/75 09/16/22 08:09 Pulse Ox 92 09/16/22 08:09 O2 Del Method 09/16/22 08:09 09/15/22 09/16/22 09/16/22 22:59 06:59 14:59 Intake Total 1495 / 3905.307 1300 / 5205.307 50 / 50 Output Total 1000 / 1000 1100 / 2100 Balance 495 / 2905.307 200 / 3105.307 50 / 50 Weight last 48 hrs Weight 91.172 kg Weight 90.764 kg Physical Exam Narrative: General: AAO x 3, notable for HEENT: Normocephalic, atraumatic, EOMI, breathing normally on room air. Cardio: S1-S2 irregularly irregular Respiratory: Clear to auscultation bilaterally no wheezes no rhonchi. Patient would not move forward for me to auscultate her back at this time. GI: Abdomen soft, mildly tender in right and left lower quadrants, nondistended, bowel sounds + Extremities: No lower extremity edema bilaterally. Urinary Catheter Management: Webber: Cath Placed During This Visit: yes Reason for Continuing Indwelling Catheter: Acute Urinary Retention or Obstruction Urinary Catheter Date of Insertion: 09/14/22 Data 09/16/22 03:06 09/16/22 03:06 Micro: Microbiology 09/14/22 03:31 Urine Culture - Final Urine,Clean Catch Enterobacter cloacae 09/14/22 13:55 MRSA Culture - Final Nose A&P Assessment and plan (1) Sepsis: Present on admission. Secondary to diverticulitis. Leading to atrial fibrillation along with altered mental status from acute encephalopathy on admission. Resolving now. (2) Chronic atrial fibrillation: RestartStop amiodarone drip. Switch to amiodarone 200 mg oral twice daily. Oral Cardizem 30 mg every 6 hourly. Monitor blood pressures. Continue with full dose Lovenox 1 mg/kg body weight daily hourly. Takes Xarelto at home. (3) Diverticulitis: Continue with Zosyn. Follow-up blood cultures. MRSA negative. Holding off on vancomycin. Stool studies still awaited. Abdominal series to be done today. On review of CT scan appendicitis was not excluded as appendix could not be identified. Will do right lower quadrant ultrasound (4) Generalized weakness: Likely secondary to sepsis. Physical therapy evaluation and management. (5) CVA, old, hemiparesis: (6) Ventricular arrhythmia: (7) Aortic regurgitation: Qualifiers: Cardiac valve disease etiology: nonrheumatic Qualified Code(s): I35.1 - Nonrheumatic aortic (valve) insufficiency (8) Obstructive sleep apnea: (9) Benign essential HTN: Goal blood pressure less than 140/90 mmHg. Weight goals of mean over 65. (10) Postoperative state: Plan Analgesia: Tylenol as needed Glycemic control: Not needed. A1c 4.8 Nutrition: Mechanical soft diet CODE STATUS: Discussed in detail with patient's niece who is the DPOA over the phone Ms. Mayfield. DNR/DNI PUD prophylaxis: Famotidine DVT prophylaxis: Full dose Lovenox. Discharge planning: Plan to discharge back to intermediate once medically stable. PT evaluation. Continue care at [facility]. Plan for the day program urine culture growing Enterobacter. Sensitive to Levaquin. MRSA negative. Stop vancomycin. Continue with Zosyn. Discharge IV fluids 50 cc/h. Monitor input, output, vitals. DC Webber. Lower quadrant ultrasound negative for acute etiology. Physical therapy, out of bed to chair. Discharge planning: Plan to discharge in next 24 hours if patient remains medically stable at her baseline mentation. This documentation was created by [employer] registration manager software. Every effort was made to ensure accuracy of registration manager. Any obvious errors or omissions should be clarified with the author of the document. Attestations Medical Necessity Statement*: Requires further hospitalization for management of sepsis secondary to diverticulitis, atrial fibrillation with rapid ventricular response. 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
[2022-09-16] MEDS: dextrose 5%-sod chloride 0.9% 1,000 ML 50 ML IV (18:39)
[2022-09-16] MEDS: risperiDONE 1 mg Tablet PO (21:16)
[2022-09-17] MEDS: dilTIAZem 30 mg Tablet PO ×2 (02:04→09:02)
[2022-09-17] MEDS: piperacillin-tazobactam 3.375 GM in sodium chloride 0.9% (plus) 50 ML IV (03:21)
[2022-09-17 03:25] LABS: Basophils % 0.4 %; Eosinophils # 0.2 10^3/uL (0.0-0.8); Eosinophils % 2.9 %; Hematocrit 31.8 % (37.0-47.0); Hemoglobin 9.9 g/dL (11.5-15.3); Lymphocytes # 1.5 10^3/uL (0.8-4.8); Lymphocytes % 19.9 %; Mean Corpuscular HGB Conc 31.1 g/dL (30.0-36.0); Mean Corpuscular Hemoglobin 31.2 pg (28.0-34.0); Mean Corpuscular Volume 100.3 fl (81-99); Monocytes # 0.5 10^3/uL (0.2-0.9); Monocytes % 6.9 %; Neutrophils # 5.24 10^3/uL (1.8-7.7); Neutrophils % 69.6 %; Nucleated Red Blood Cells % 0 %; Platelet Count 180 10^3/cmm (130-400); Red Blood Count 3.17 10^6/uL (4.1-5.3); Red Cell Distribution Width 13.3 % (12.1-15.1); White Blood Count 7.5 10^3/uL (4.0-10.0)
[2022-09-17 03:47] LABS: Alanine Aminotransferase 18 U/L (0-33); Albumin Level 2.7 g/dL (3.5-5.2); Alkaline Phosphatase 74 U/L (35-105); Anion Gap 10.6 (5-19); Aspartate Amino Transferase 19 U/L (0-32); Blood Urea Nitrogen 12 mg/dL (8-23); Calcium 8.1 mg/dL (8.5-10.5); Carbon Dioxide 18 mmol/L (22-29); Chloride 120 mmol/L (98-107); Globulin 2.7 g/dL (1.3-4.6); Glucose 107 mg/dL (65-115); Osmolality Calculated 300 mOsm/kg (285-295); Potassium 3.6 mmol/L (3.5-5.1); Sodium 145 mmol/L (136-145); Total Bilirubin 0.3 mg/dL (0.15-1.2); Total Protein 5.4 g/dL (6.6-8.7)
[2022-09-17 03:48] VITALS: BP 100/66; PULSE 110; RESP 12; TEMP 37.8; O2SAT 95
[2022-09-17 05:18] VITALS: PULSE 104
[2022-09-17 07:12] VITALS: BP 110/77; PULSE 107; RESP 16; TEMP 37.3; O2SAT 98
[2022-09-17 07:58] VITALS: O2SAT 96
[2022-09-17] MEDS: pantoprazole 40 mg SDV IVP (08:38)
[2022-09-17] MEDS: amiodarone 200 mg Tablet PO (09:02)
[2022-09-17] MEDS: ferrous gluconate 324 mg Tablet PO (09:02)
[2022-09-17] MEDS: topiramate 100 mg Tablet PO (09:02)
[2022-09-17] MEDS: cyanocobalamin 1,000 mcg Tablet 500 MCG PO (09:03)
[2022-09-17] MEDS: atorvastatin 40 mg Tablet PO (09:03)
--- NOTE | 2022-09-17 09:09 | PM.DCS ---
Discharge Providers Date of Admission: 09/14/22 05:03 Date of Discharge: September 17, 2022 Attending Provider at Admission: Mary Desai MD Attending Provider at Discharge: Johny Castillo MD Primary Care Provider: Mavis Jacinto Diagnoses at Discharge Discharge Diagnosis (1) Sepsis: Status: Acute (2) Chronic atrial fibrillation: Status: Acute (3) Diverticulitis: Status: Acute (4) Generalized weakness: Status: Acute (5) CVA, old, hemiparesis: Status: Acute (6) Ventricular arrhythmia: Status: Acute (7) Aortic regurgitation: Status: Acute Qualifiers: Cardiac valve disease etiology: nonrheumatic Qualified Code(s): I35.1 - Nonrheumatic aortic (valve) insufficiency (8) Obstructive sleep apnea: Status: Acute (9) Benign essential HTN: Status: Acute (10) Postoperative state: Status: Acute Reason for Visit Reason for Visit: fever Brief History: History as per HPI: Tamika France is a 76 year old female past medical history of atrial fibrillation, hypertension, bipolar 1 disorder, congestive heart failure, obstructive sleep apnea, recent stroke, nephrectomy on September 05 at [facility] presented to the hospital today from [facility] for complaint of hematuria.? Patient does have a history of dementia but was alert and oriented at the [facility] able to make her needs known.? She is unable to provide a history..? She is alert and somewhat confused at this time.? Able to answer only some questions.? Not lethargic or obtunded.? Initially when she came to the ER she was complaining of abdominal pain and had a fever.? She was also in A. fib with RVR with a rate of 140.? She was hypotensive with blood pressure in the 80s.? She denied vomiting diarrhea, chest pain, dyspnea, headache, rash, chills.? Patient is an extremely poor historian. ED course: Blood pressure 81/59, respirate 19, pulse 116, temp 99.2.? CT abdomen pelvis done showed diverticulitis.? She was given a dose of Vanco and Zosyn.? Central line placed by ER and Levophed started.? Patient will be transferred to ICU. Patient has surgical scars on her abdomen with surgical glue.? When asked she said she had a nephrectomy done because someone told her she had renal cancer.? This was done at [facility].? Patient states it was done on September 05 this year.? She is unable to provide any other details regarding this or provide any other information at this time. Hospital Course Hospital Course Patient was roomed to the ICU for further evaluation and management. She was started on broad-spectrum antibiotics. On admission she required low-dose Levophed which was weaned off. She did have atrial fibrillation with rapid ventricular response on admission which was treated with amiodarone and later transition to oral medication. She responded well to the treatment and has been back to her baseline mentation for last 48 hours. Patient's blood cultures remain negative and urine cultures were positive for Enterobacter. Antibiotics were tailored as per sensitivities. She has been discharged back to SNF for further rehabilitation. She is to take Levaquin for 5 more days. She is to take amiodarone 200 mg daily for next 7 days and then wean down to 200 mg oral daily. Her home dose of Cardizem has been increased to 180 mg daily. Physical Exam Narrative: General: AAO x 3, HEENT: Normocephalic, atraumatic, EOMI, breathing normally on room air. Cardio: S1-S2 irregularly irregular Respiratory: Clear to auscultation bilaterally no wheezes no rhonchi. Patient would not move forward for me to auscultate her back at this time. GI: Abdomen soft, mildly tender in right and left lower quadrants, nondistended, bowel sounds + Extremities: No lower extremity edema bilaterally. Urinary Catheter Management: Webber: Cath Placed During This Visit: yes, but has since been removed by the nurse Reason for Continuing Indwelling Catheter: Decision to DC Catheter Urinary Catheter Date of Insertion: 09/14/22 Date Urinary Catheter Removed: 09/16/22 Time Urinary Catheter Discontinued: 15:00 Discharge Data Studies Completed and Pending Completed Studies During Hospitalization Category Date Time Status CT kidney stone [id number] Stat Cat Scan 09/14/22 02:30 Completed CXRP [XR chest 1V portable [id number]] Stat Exams 09/14/22 05:20 Completed XR acute abdomen series [id number] Routine Exams 09/15/22 10:00 Completed XR chest 1V portable [id number] Stat Exams 09/14/22 02:29 Completed US abdomen limited [id number] Routine Ultrasound 09/15/22 14:31 Completed Pending at discharge Category Date Time Status Blood Culture Stat Lab 09/14/22 03:16 Results Clostridioides Difficile PCR Routine Lab 09/14/22 09:38 Ordered Enteric Bacterial Panel by PCR Routine Lab 09/14/22 09:38 Ordered Enteric Parasite Panel by PCR Routine Lab 09/14/22 09:38 Ordered Immunochemical Fecal OCB Routine Lab 09/14/22 09:38 Ordered Lactoferrin Routine Lab 09/14/22 09:38 Ordered Topiramate Level Routine Lab 09/14/22 11:45 Received Radiology Impressions Abdomen/Pelvis CT 09/14/22 02:30 IMPRESSION: Colonic diverticulosis with thickening and stranding seen adjacent to the sigmoid colon likely representing an acute diverticulitis. An underlying lesion cannot be excluded. Further evaluation is suggested as clinically indicated. Chest X-Ray 09/14/22 05:20 IMPRESSION: Right central line tip projects over the right atrial/SVC junction. Chest/Abdomen X-ray 09/15/22 10:00 IMPRESSION: There are no acute concerning abnormalities. Abdomen Ultrasound 09/15/22 14:31 IMPRESSION: 1. Appendix is not identified. 2. No inflammatory masses in the lower quadrants. 3. Increased fecal content in the GI tract. Microbiology 09/14/22 03:31 Urine,Clean Catch Urine Culture - Final Enterobacter cloacae 09/14/22 13:55 Nose MRSA Culture - Final 09/14/22 03:16 Blood Blood Culture - Preliminary NEGATIVE TO DATE 09/14/22 03:07 Blood Blood Culture - Preliminary NEGATIVE TO DATE 09/14/22 13:55 Urine Kidney Bacterial Antigens - Final Laboratory Results WBC 7.5 10^3/uL (4.0-10.0) 09/17/22 03:20 RBC 3.17 10^6/uL (4.1-5.3) L 09/17/22 03:20 Hgb 9.9 g/dL (11.5-15.3) L 09/17/22 03:20 Hct 31.8 % (37.0-47.0) L 09/17/22 03:20 MCV 100.3 fl (81-99) H 09/17/22 03:20 MCH 31.2 pg (28.0-34.0) 09/17/22 03:20 MCHC 31.1 g/dL (30.0-36.0) 09/17/22 03:20 RDW 13.3 % (12.1-15.1) 09/17/22 03:20 Plt Count 180 10^3/cmm (130-400) 09/17/22 03:20 MPV 11.0 fL (7.4-10.4) H 09/17/22 03:20 Neut % (Auto) 69.6 % 09/17/22 03:20 Lymph % (Auto) 19.9 % 09/17/22 03:20 [place] % (Auto) 6.9 % 09/17/22 03:20 Eos % (Auto) 2.9 % 09/17/22 03:20 Baso % (Auto) 0.4 % 09/17/22 03:20 Neut # (Auto) 5.24 10^3/uL (1.8-7.7) 09/17/22 03:20 Lymph # (Auto) 1.5 10^3/uL (0.8-4.8) 09/17/22 03:20 [place] # (Auto) 0.5 10^3/uL (0.2-0.9) 09/17/22 03:20 Eos # (Auto) 0.2 10^3/uL (0.0-0.8) 09/17/22 03:20 Baso # (Auto) 0.0 10^3/uL (0.0-0.1) 09/17/22 03:20 Nucleated RBC % (auto) 0 % 09/17/22 03:20 Nucleated RBCs # 0.0 /100WBC 09/17/22 03:20 PT 32.90 SECONDS (12.1-14.9) H 09/14/22 03:07 INR 3.19 (0.8-1.2) H 09/14/22 03:07 Sodium 145 mmol/L (136-145) 09/17/22 03:20 Potassium 3.6 mmol/L (3.5-5.1) 09/17/22 03:20 Chloride 120 mmol/L (98-107) H 09/17/22 03:20 Carbon Dioxide 18 mmol/L (22-29) L 09/17/22 03:20 Anion Gap 10.6 (5-19) 09/17/22 03:20 BUN 12 mg/dL (8-23) 09/17/22 03:20 Creatinine 1.1 mg/dL (0.5-0.9) H 09/17/22 03:20 GFR Calculation Not Reportable 09/17/22 03:20 Glucose 107 mg/dL (65-115) 09/17/22 03:20 Estimat Average Glucose 91 09/15/22 02:36 Hemoglobin A1c 4.8 % (4.0-6.0) 09/15/22 02:36 Calculated Osmolality 300 mOsm/kg (285-295) H 09/17/22 03:20 Lactate 0.6 mmol/L (0.5-2.2) 09/14/22 03:07 Calcium 8.1 mg/dL (8.5-10.5) L 09/17/22 03:20 Magnesium 2.1 mg/dL (1.7-2.3) 09/14/22 02:30 Iron 12 ug/dL (37-145) L 09/14/22 10:14 TIBC 196 mcg/dl 09/14/22 10:14 % Saturation 6.1 % (20-50) L 09/14/22 10:14 Unsat Iron Binding 184 ug/dL (112-347) 09/14/22 10:14 Total Bilirubin 0.3 mg/dL (0.15-1.2) 09/17/22 03:20 AST 19 U/L (0-32) 09/17/22 03:20 ALT 18 U/L (0-33) 09/17/22 03:20 Alkaline Phosphatase 74 U/L (35-105) 09/17/22 03:20 Total Protein 5.4 g/dL (6.6-8.7) L 09/17/22 03:20 Albumin 2.7 g/dL (3.5-5.2) L 09/17/22 03:20 Globulin 2.7 g/dL (1.3-4.6) 09/17/22 03:20 Triglycerides 39 mg/dL (0-150) 09/15/22 02:36 Cholesterol 87 mg/dL (0-200) 09/15/22 02:36 LDL Cholesterol, Calc 36 mg/dL (50-129) L 09/15/22 02:36 Total VLDL Cholesterol 8 mg/dL (0-30) 09/15/22 02:36 HDL Cholesterol 43 mg/dL (60-100) L 09/15/22 02:36 Cholesterol/HDL Ratio 2.02 mg/dL (0.0-4.40) 09/15/22 02:36 Vitamin B12 339 pg/mL (232-1245) 09/14/22 10:14 Folate 7.4 ng/mL (4.8-37.3) 09/14/22 10:14 Procalcitonin 0.16 ng/mL (0-0.5) 09/14/22 10:14 TSH 2.45 uIU/mL (0.27-4.20) 09/14/22 10:14 Urine Color Yellow (Yellow) 09/14/22 03:31 Urine Appearance Clear (CLEAR) 09/14/22 03:31 Urine pH 8 (5-7) H 09/14/22 03:31 Ur Specific [place] 1.010 (1.005-1.030) 09/14/22 03:31 Urine Protein Neg (Negative) 09/14/22 03:31 Urine Glucose (UA) Norm (Normal) 09/14/22 03:31 Urine Ketones Negative (Negative) 09/14/22 03:31 Urine Blood 3+ (Negative) H 09/14/22 03:31 Urine Nitrate Negative (Negative) 09/14/22 03:31 Urine Bilirubin Neg (Negative) 09/14/22 03:31 Prot Sulfosalicylic Acd Negative (Negative) 09/14/22 03:31 Urine Urobilinogen Neg mg/dL (Negative) 09/14/22 03:31 Ur Leukocyte Esterase Negative (Negative) 09/14/22 03:31 Urine RBC 40-50 /hpf (0-2) H 09/14/22 03:31 Urine WBC 5-10 /hpf (0-5) H 09/14/22 03:31 Ur Squamous Epith Cells 0-4 /hpf (0-5) H 09/14/22 03:31 Amorphous Sediment Not Reportable 09/14/22 03:31 Urine Bacteria Trace /hpf (NONE) 09/14/22 03:31 Ur Random Sodium 33 mmol/L 09/14/22 03:37 Ur Random Potassium 72 mmol/L 09/14/22 03:37 Ur Random Chloride 19 mmol/L 09/14/22 03:37 Vancomycin Trough 10.1 ug/mL (10-15) 09/16/22 03:06 Influenza Type A Ag negative (Negative) 09/14/22 03:06 Influenza Type B Ag negative (Negative) 09/14/22 03:06 SARS-CoV-2 Ag (Rapid) negative (Negative) 09/14/22 03:54 Vitals Last Vital Signs Temp 99.1 F 09/17/22 07:12 Pulse 107 H 09/17/22 07:12 Resp 16 09/17/22 07:12 BP 110/77 09/17/22 07:12 Pulse Ox 96 09/17/22 07:58 O2 Del Method 09/17/22 07:58 Discharge Plan Discharge Patient Disposition: Xfer [facility] Condition: Stable Prescriptions: New Pacerone 200 mg Tablet See Taper PO BID Qty: 60 0RF Taper: amiodarone 400bid to 200daily 200 mg Twice A Day for 7 Days and 0 Hour 200 mg Daily for 30 Days and 0 Hour Cardizem CD 180 mg capsule,extended release 24hr 180 mg PO DAILY Qty: 30 0RF levofloxacin 750 mg tablet 750 mg PO Q24H 5 Days Qty: 5 0RF Continued diclofenac sodium 1 % gel 2 g topical QID PRN (Reason: Pain) atorvastatin 40 mg tablet 40 mg PO DAILY potassium chloride 10 mEq tablet,ER particles/crystals 10 meq PO QAM Qty: 90 3RF topiramate 100 mg tablet 100 mg PO BID Xarelto 20 mg tablet 20 mg PO QPM Hold Instructions: Doctor's Order Rx Instructions: takes in the evening with supper Aplisol 5 tub. unit /0.1 mL Solution 5 tb unit INTRADERMAL Q14D Miralax 17 gram/dose Powder 17 g PO DAILY PRN (Reason: Constipation) magnesium oxide 500 mg Capsule 500 mg PO DAILY naloxone 2 mg/2 mL Syringe Kit 2 mg IM Q2M PRN (Reason: overdose) Rx Instructions: NTExceed 10 mg total dose/episode Changed furosemide 40 mg tablet 40 mg PO QAM PRN (Reason: swelling) Qty: 10 0RF venlafaxine 150 mg capsule,extended release 24hr 150 mg PO QAM Qty: 30 0RF risperidone 2 mg tablet 1 mg PO BEDTIME Qty: 30 0RF Discontinued diltiazem HCl 120 mg capsule,extended release 24hr 120 mg PO DAILY cephalexin 250 mg capsule 250 mg PO DAILY Discharge Orders: Discharge Order (Routine); Ordered 09/17/22 Ordered By: Johny Castillo Referrals: [facility] [Outside] Mavis Jacinto FNP [Primary Care Provider] - 7-10 days Discharge Diet: Cardiac Discharge Activity: Resume usual activity and Increase activity as tolerated Patient Instructions: Diltiazem (By mouth) (Cardizem, Cardizem CD, Cardizem LA, Cardizem SR), Amiodarone (By mouth) (Cordarone, Pacerone), Levofloxacin (By mouth), Opioid Safety Activity Restrictions/Additional Instructions: Dose of Cardizem has been increased to 180 mg daily. Take amiodarone 200 mg twice daily for next 7 days followed by 200 mg daily going forward. Take Levaquin for next 5 days. Please follow-up with a primary care provider within next 1 week. Discharge Attestations Time Spent in Discharge Care*: greater than 30 min Specific Discharge Activities: educating patient, discussing with pcp/other providers, discussing with director of casework department/social workers/dc planners, documenting/other paperwork and evaluating patient/reviewing data Status at Discharge: Cognitive status at discharge: cognitively intact, Behavioral status at discharge: cooperative, Functional status at discharge: uses cane/walker, Overall status at discharge: patient is progressing back to baseline Quality Metrics Clinical Quality Measures [ No reported AMI, CVA or VTE this stay] Coding Level of Care Code Acute [facility] DC note Diagnoses Sepsis A41.9 Chronic atrial fibrillation I48.20 Diverticulitis K57.92 Generalized weakness R53.1 CVA, old, hemiparesis I69.359 Ventricular arrhythmia I49.9 Aortic regurgitation I35.1 Cardiac valve disease etiology: nonrheumatic Obstructive sleep apnea G47.33 Benign essential HTN I10 Postoperative state Z98.890
[2022-09-17] MEDS: enoxaparin 100 mg/mL Syringe 90 MG SUBCUT (09:12)
--- NOTE | 2022-09-17 09:38 | PC.SOCIAL ---
Pg 2 IMM Explained to pt Pg 2 IMM. No questions voiced. Provided pt a copy. Initialed, dated, & timed a copy & placed in chart.
[2022-09-17 11:23] VITALS: BP 108/76; PULSE 82; RESP 12; TEMP 37.3; O2SAT 97
[2022-09-17 15:45] VITALS: BP 108/76; PULSE 82; RESP 12; TEMP 37.3; O2SAT 97
--- NOTE | 2022-09-17 15:46 | PC.NURSE ---
Discharge Note Patient discharged to SNF via EMS accompanied by EMS staff. Discharge instructions reviewed with patient and/or licensing representative. Mobile pharmacy medications and/or prescriptions provided. Belongings/home medications returned.
== END 2022-09-17 14:45 | disposition skilled nursing facility (03) | DRG 872 ==
LOC: ER 05:19 → ER IP 05:47 → ICU 08:19 → CSU 09-15 20:19
PROVIDERS: Admitting Provider Internal Medicine; Emergency Provider Emergency Medicine; PCP Nurse Practitioner Family; Visit Provider Student in an Organized Health Care Education/Training Program
DX: A41.9 Sepsis, unspecified organism (principal); K57.32 Diverticulitis of large intestine without perforation or abscess without bleeding; I48.20 Chronic atrial fibrillation, unspecified; G93.49 Other encephalopathy; I11.0 Hypertensive heart disease with heart failure; I50.9 Heart failure, unspecified; F31.9 Bipolar disorder, unspecified; G47.33 Obstructive sleep apnea (adult) (pediatric); Z90.5 Acquired absence of kidney; F03.90 Unspecified dementia, unspecified severity, without behavioral disturbance, psychotic disturbance, mood disturbance, and anxiety; I95.9 Hypotension, unspecified; R31.9 Hematuria, unspecified; Z66 Do not resuscitate; B96.89 Other specified bacterial agents as the cause of diseases classified elsewhere; Z86.73 Personal history of transient ischemic attack (TIA), and cerebral infarction without residual deficits; Z98.890 Other specified postprocedural states
CPT/HCPCS: 36415; 36592; 51702; 71045; 74022; 74176; 76705; 80048; 80053; 80061; 80201; 80202; 81001; 82436; 82607; 82746; 83036; 83540; 83550; 83605; 83735; 84133; 84145; 84300; 84443; 85025; 85610; 86403; 87040; 87077; 87086; 87186; 87426; 87641; 87804; 93005; 94664; 96365; 96367; 96372; 97162; 97530; 99285; C9113; J0282; J1644; J1650; J2543; J3370; J3420; J7030; J7040; J7042; J7050; J7060

== ENCOUNTER → 2022-11-28 11:07 | Outpatient (BNVA) | payer MEDICARE, MEDICAID, SELFPAY | PROVIDERS: PCP Nurse Practitioner Family; Visit Provider Nurse Practitioner Family | DX: M17.11 Unilateral primary osteoarthritis, right knee (principal); S42.401A Unspecified fracture of lower end of right humerus, initial encounter for closed fracture; W19.XXXA Unspecified fall, initial encounter | CPT/HCPCS: 73080; 73560; 73565; 99214 ==

== ENCOUNTER → 2022-12-25 10:26 | Outpatient (BNVA) | payer MEDICARE, MEDICAID, SELFPAY | PROVIDERS: PCP Nurse Practitioner Family; Visit Provider Nurse Practitioner Family | DX: M17.11 Unilateral primary osteoarthritis, right knee (principal) | CPT/HCPCS: 99213 ==